=== PATIENT | male | born 1955 | race Caucasian/White ===

== ENCOUNTER 2016-08-16 14:19 | Inpatient (IN) ==
[2016-08-16] MEDS ORDERED: Furosemide 40 MG/4 ML VIAL IVP ONE (15:01)
--- NOTE | 2016-08-16 15:05 | Emergency Department Note ---
Disposition Clinical Impression: Swelling of both lower extremities Acute exacerbation of CHF (congestive heart failure) Qualifiers: Congestive heart failure type: unspecified congestive heart failure type Qualified Code(s): I50.9 - Heart failure, unspecified Dyspnea Qualifiers: Dyspnea type: dyspnea on exertion Qualified Code(s): R06.09 - Other forms of dyspnea Disposition: Admitted As Inpatient Condition: Fair Time of Disposition: 17:44 General Adult HPI - General Chief complaint: ED Shortness of Breath/Dyspnea Stated complaint: Swollen Legs Time Seen by Provider: 08/16/16 14:30 Source: patient, family Limitations: no limitations Nursing Notes Reviewed: Yes Vital Signs Reviewed: Yes - History of Present Illness HPI Narrative: Mr. Berkowitz, 61-year-old male, presentwer extremity swelling. Gradually worse over the past month however prominently worse over the last 1 week. His [place] point that he is no longer able to wear his typical shoes/boots. Associated with mild exertional dyspnea. Patient was at his primary care physician 3 days ago and was encouraged to present to this emergency facility and he refused. His symptoms continue to worsen thus his presentation today. She also notes mild left parasternal intermittent chest pain. Denies nausea, vomiting, diaphoresis, weakness, back pains, fever, chills, cough. PMH: Hypertension Habits: Current every day smoker; down to 1 pack per day. Current everyday drinker-750 mL to 1 L of whiskey per day. ROS: Positive: Bilateral lower extremity edema, exertional dyspnea, left-sided parasternal chest pain. Negative: Fever, chills, cough, nausea, vomiting, diaphoresis, weakness, dizziness, lightheadedness, abdominal pain, changes in bowel or bladder. Pain Scale: 0 - Related Data Home Medications Medication Instructions Recorded Confirmed Albuterol Sulfate [Proair 2 puff IH Q4H PRN 08/16/16 08/16/16 Respiclick] Buprenorphine HCl/Naloxone HCl 1.25 tab SL DAILY 08/16/16 08/16/16 [Buprenorphin-Naloxon 8-2 mg Sl] Bupropion HCl [Wellbutrin Xl] 300 mg PO QAM 08/16/16 08/16/16 Lisinopril [Zestril] 10 mg PO DAILY 08/16/16 08/16/16 Loratadine [Allergy Relief] 10 mg PO DAILY 08/16/16 08/16/16 Allergies Allergy/AdvReac Type Severity Reaction Status Date / Time Penicillins Allergy Blister Verified 08/16/16 14:21 All systems ED: reviewed and negative except as stated. Past Medical History - Past Medical History Medical history: Reports: hypertension Psychiatric history: Reports: no psych history - Social History Smoking Status: Current every day smoker Smokeless Tobacco Status: No Alcohol use: Reports: heavy Drug use: Reports: none Physical Exam Vital Signs Reviewed General: Patient is alert, oriented, and in no acute distress. HEENT: No facial asymmetry. Head is normocephalic and atraumatic. PERRLA. Trachea midline. Cardiovascular: Heart regular rate and rhythm without clicks, rubs, gallops, or murmurs. No JVD. PMI nondisplaced. Bilateral radial pulses 2/4. Bilateral pedal edema 2+ from the level of the knee to the mid foot. Respiratory: Symmetric chest rise with respiratory effort. Prolonged expiratory phase. Bilateral breath sounds have bibasilar wheezing with right basilar coarse lung sounds. Abdomen: [place] obese. Bowel sounds present normoactive x-4 quadrants. Abdomen is soft, nondistended, and nontender. All to assess organomegaly given patient's body habitus. Psych: Patient's affect is appropriate for situation. - General Limitations: no limitations General appearance: alert Course Course Narrative: Clinically suspect acute exacerbation of congestive heart failure. Interstitial remission after workup is complete. I spoke with patient and at bedside; they agree to admission if necessary. 40 mg IV Lasix in the ER. Patient's lab work is relatively unremarkable; specifically negative troponin, unremarkable BNP, normal lateral electrolytes . Chest x-ray unremarkable per radiology reading. EKG unremarkable per my reading. Patient remains overall comfortable however he is mildly hypoxic on room air with saturations 91%. Discussed with the admitting hospitalist, Dr. Godinez, who agrees to accept the patient. Vital Signs Temperature 99.6 F 08/16/16 14:21 Pulse Rate 109 08/16/16 14:21 Respiratory Rate 24 08/16/16 14:21 Blood Pressure 127/70 08/16/16 14:21 O2 Sat by Pulse Oximetry 92 08/16/16 14:21 Temperature 100.3 F H 08/16/16 17:22 Pulse Rate 105 08/16/16 17:22 Respiratory Rate 16 08/16/16 17:22 Blood Pressure 128/65 08/16/16 17:22 O2 Sat by Pulse Oximetry 98 08/16/16 17:22 Oxygen Delivery Oxygen Delivery Nasal Cannula Medical Decision Making - Medical Records Medical records reviewed: Yes I reviewed the patient's medical records. - Lab Data Lab results reviewed: Yes I reviewed the patient's lab results. Result diagrams: 08/16/16 15:18 08/16/16 15:18 Lab Results 08/16/16 08/16/16 08/16/16 Range/Units 15:18 15:18 15:18 WBC 5.3 (4.3-11.1) K/mcL RBC 3.81 L (4.19-5.50) M/mcL Hgb 13.8 (12.9-16.9) g/dL Hct 40.5 (37.5-50.1) % MCV 106.3 H (83.0-100.0) fL MCH 36.2 H (28.0-33.3) pg MCHC 34.1 (31.6-35.5) g/dL RDW 13.0 (11.5-14.5) % Plt Count 264 (140-400) K/mcL MPV 8.7 L (9.4-12.4) fL Immature Gran % 0.8 (0-4) % Seg Neutrophils % 49.1 % Lymphocytes % 39.9 % Monocytes % 8.1 % Eosinophils % 1.7 % Basophils % 0.4 % Neutrophils # 2.6 (1.6-8.9) K/mcL Lymphocytes # 2.1 (0.6-4.6) K/mcL Monocytes # 0.4 (0.0-1.3) K/mcL Eosinophils # 0.1 (0.0-0.6) K/mcL Basophils # 0.0 (0.0-0.2) K/mcL Sodium 137 (136-145) mEq/L Potassium 3.7 (3.5-4.5) mEq/L Chloride 99 (98-109) mEq/L Carbon Dioxide 25 (19-29) mEq/L BUN 4 L (8-26) mg/dL Creatinine 0.92 (0.72-1.25) mg/dL Est GFR ( Amer) > 60 (> 60) Est GFR (Non-Af Amer) > 60 (> 60) BUN/Creatinine Ratio 4 L (6-26) Glucose 135 H (70-99) mg/dL Calculated Osmolality 283 (280-300) Calcium 8.5 L (8.6-10.8) mg/dL Troponin I 0.00 (0-0.03) ng/mL B-Natriuretic Peptide (0-100) pg/mL Ethyl Alcohol (0-10) mg/dL 08/16/16 08/16/16 Range/Units 15:18 17:14 WBC (4.3-11.1) K/mcL RBC (4.19-5.50) M/mcL Hgb (12.9-16.9) g/dL Hct (37.5-50.1) % MCV (83.0-100.0) fL MCH (28.0-33.3) pg MCHC (31.6-35.5) g/dL RDW (11.5-14.5) % Plt Count (140-400) K/mcL MPV (9.4-12.4) fL Immature Gran % (0-4) % Seg Neutrophils % % Lymphocytes % % Monocytes % % Eosinophils % % Basophils % % Neutrophils # (1.6-8.9) K/mcL Lymphocytes # (0.6-4.6) K/mcL Monocytes # (0.0-1.3) K/mcL Eosinophils # (0.0-0.6) K/mcL Basophils # (0.0-0.2) K/mcL Sodium (136-145) mEq/L Potassium (3.5-4.5) mEq/L Chloride (98-109) mEq/L Carbon Dioxide (19-29) mEq/L BUN (8-26) mg/dL Creatinine (0.72-1.25) mg/dL Est GFR ( Amer) (> 60) Est GFR (Non-Af Amer) (> 60) BUN/Creatinine Ratio (6-26) Glucose (70-99) mg/dL Calculated Osmolality (280-300) Calcium (8.6-10.8) mg/dL Troponin I (0-0.03) ng/mL B-Natriuretic Peptide 20 (0-100) pg/mL Ethyl Alcohol 80 H (0-10) mg/dL - Radiology Data Radiology results reviewed: Yes I reviewed the patient's radiology results. Chest X-Ray 08/16/16 15:01 IMPRESSION: No acute cardiopulmonary process. D/ / 08/16/2016 15:17:11 Huang Esposito MD / samy Interpreting Provider: Huang Esposito MD - EKG Data EKG #1 EKG attestation: Yes I reviewed and interpreted this EKG. EKG results narrative: EKG dated 08/16/16 at 14:43 interpreted as sinus tachycardia with a rate of 102. [place] 183, QRS 120, QT/QTC 349/40. [place]. T-wave inversion in V1 which is present on the EKG. Compared to previous dated 07/15/2016 shows no acute ischemic changes of comparison. Attestation Statement - Attestation Attestation: I examined this patient and my medical decision-making was reviewed with the [employer]/PA/Advanced Practice Nurse/Resident Physician. I agree with the documented findings, disposition and treatment plan as described except to the extent set forth below. Patient to ED complaining of leg swelling. Swelling is only of his lower legs in his lower abdomen. States he is getting short of breath 2. Saw his primary doctor Tuesday who recommended to come be admitted. On examination he is in no distress. Diminished breath sounds posteriorly. 3-4+ pitting edema bilateral lower extremities. Plan. Cardiac workup. His BNP is 20. He will be admitted for further cardiac workup and diuresis.
[2016-08-16] MEDS ORDERED: *HR* LORazepam 2 MG/ML VIAL IVP ONE (15:07)
[2016-08-16 15:30] LABS: Basophils % 0.4 %; Eosinophils # 0.1 K/mcL (0.0-0.6); Eosinophils % 1.7 %; Hematocrit 40.5 % (37.5-50.1); Hemoglobin 13.8 g/dL (12.9-16.9); Immature Granulocytes % 0.8 % (0-4); Lymphocytes # 2.1 K/mcL (0.6-4.6); Lymphocytes % 39.9 %; Mean Corpuscular HGB Conc 34.1 g/dL (31.6-35.5); Mean Corpuscular Hemoglobin 36.2 pg (28.0-33.3); Mean Corpuscular Volume 106.3 fL (83.0-100.0); Mean Platelet Volume 8.7 fL (9.4-12.4); Monocytes # 0.4 K/mcL (0.0-1.3); Monocytes % 8.1 %; Neutrophils # 2.6 K/mcL (1.6-8.9); Platelet Count 264 K/mcL (140-400); Red Blood Count 3.81 M/mcL (4.19-5.50); Segmented Neutrophils % 49.1 %
[2016-08-16 15:43] LABS: BUN/Creatinine Ratio 4 (6-26); Calcium 8.5 mg/dL (8.6-10.8); Carbon Dioxide 25 mEq/L (19-29); Chloride 99 mEq/L (98-109); Glucose 135 mg/dL (70-99); Osmolality,Calculated 283 (280-300); Potassium 3.7 mEq/L (3.5-4.5); Sodium 137 mEq/L (136-145); eGFR For African Americans > 60 (> 60); eGFR For Non-African Americans > 60 (> 60)
[2016-08-16 15:45] LABS: Blood Urea Nitrogen 4 mg/dL (8-26)
[2016-08-16] MEDS ORDERED: *HR* LORazepam 2 MG/ML VIAL IVP PRN ×2 (17:05)
--- NOTE | 2016-08-16 17:12 | Event Note ---
Date of Encounter: 08/16/16 Time of Encounter: 17:08 1) acute cellulitis in both lower extremities (took oral antibiotics days ago) Start IV doxycycline Blood cultures 2. Severe lower extremity swelling/edema/lymphedema that could be acute on chronic, possibly related to diastolic CHF exacerbation The patient is morbidly obese for which his BNP is not useful, he has been using 3 pillows to sleep and cannot lay flat, chest x-ray shows some vascular congestion although they found a report does not mention it Start Lasix IV, strict I's and O's and daily weight, repeat echocardiogram 3. Severe alcohol abuse Order an alcohol level Taper Librium, add Ativan as needed per CIWA scale 4. Tobacco use, nicotine patch, smoking cessation counseling 5. Morbid obesity Omeprazole for GI prophylaxis and subcutaneous heparin for DVT prophylaxis. The patient will be admitted as inpatient, expected to stay more than 2 midnights. Full code. Time spent on this admission 40 minutes. High risk due to comorbidities
[2016-08-16] MEDS ORDERED: Naloxone 0.4 MG/ML INJ IVP PRN (17:15)
[2016-08-16] MEDS ORDERED: Albuterol 2.5 MG/3 ML NEBULIZER IH PRN (17:40)
--- NOTE | 2016-08-16 17:44 | Internal Med History&Physical ---
<Becca Koroma - Last Filed: 08/16/16 18:44> Date of Encounter: 08/16/16 Time of Encounter: 17:44 Assessment and Plan (1) Acute on chronic diastolic (congestive) heart failure Current visit: Yes Status: Acute Patient with increasing LE swelling, dyspnea on exertion. He reports one month ago, his "lungs filled up with fluid" and his legs were swollen and he was given lasix and improved. Last echocardiogram 10/22/14 showed mild LV diastolic dysfunction, LVEF 55%. continuous bobbin coil winder 40mg lasix IVP given in ED 40mg Lasix BID 20mg potassium PO BID daily weights strict I/Os echocardiogram in the morning. (2) Cellulitis Current visit: Yes Status: Acute Patient complains of increased swelling in BLE. On exam, BLE have +3 edema, are erythematous and mildly tender to palpation. Palpable pulses in bilateral feet. Patient is mildly tachycardic with HR 105, and temperature trending up with most recent 100.3. Doxycycline IVPB BID. If not improved by tomorrow, consider vancomycin. Qualifiers: Site of cellulitis: extremity Site of cellulitis of extremity: lower extremity Laterality: unspecified laterality Qualified Code(s): L03.119 - Cellulitis of unspecified part of limb (3) Alcohol abuse Current visit: Yes Status: Acute Patient drinks 1L of whiskey per day. CIWA protocol Librium QID plus PRN Ativan per CIWA protocol. (4) Smoker Current visit: Yes Status: Acute Patient reports he has cut back from 2PPD to 1PPD. Encourage smoking cessation. Smoking cessation education and nicotine patch ordered. (5) Chest pain Current visit: Yes Status: Acute Patient reporting mild intermittent chest pain. EKG with no ischemic changes. troponin negative at 0.00. Continuous bobbin coil winder serial troponins. Qualifiers: Chest pain type: unspecified Qualified Code(s): R07.9 - Chest pain, unspecified (6) DVT prophylaxis Current visit: Yes Status: Acute SCDs lovenox 40mg SQ daily Internal Medicine - H&P: HPI Chief complaint: leg swelling Admitted From: Emergency Dept Plans for Post Hospital Care: Home History of present illness: Mr. Berkowitz is a 61 year old male with hypertension, dependent, who presented to the emergency room today with complaints of chest pain, worsening swelling of the legs, shortness of breath on exertion. Patient reports that 1 month ago his legs were swollen and he had trouble breathing and he presented to the emergency room at that time and stated that medication and gave her made everything better, at that time he was advised to be admitted but he decided to go home. Since then his legs have been progressively swelling, and progressively worsening over the last 1 week. He reports intermittent chest pain. Evaluation in the emergency department included a troponin which was - 0.00, BNP was normal at 20, in a patient with morbid obesity. White blood cell count was normal at 5.3. Patient was mildly tachycardic with heart rate of 105. Chest x-ray showed some vascular congestion. On exam, patient morbidly obese, bilateral lower extremities erythematous, mildly tender to palpation, and with +3 pitting edema. Heart with regular rhythm, mildly tachycardic. Lungs with mild expiratory wheeze bilaterally. Past Med Surg Social Fam HX - Past Medical History Medical history: hypertension Psychiatric history: no psych history - Social History Smoking Status: Current every day smoker Smokeless Tobacco Status: No Alcohol use: heavy Drug use: none - Family History Mother Living Status: Age at : 67 Cause of : Colon CA Hx Family Cancer: Yes Father Living Status: Age at : 76 Cause of : CHF Hx Family Cardiac Disorders: Yes Internal Medicine - H&P: Meds Albuterol Sulfate [Proair Respiclick] 2 puff IH Q4H PRN 08/16/16 [History] Buprenorphine HCl/Naloxone HCl [Buprenorphin-Naloxon 8-2 mg Sl] 1.25 tab SL DAILY 08/16/16 [History] Bupropion HCl [Wellbutrin Xl] 300 mg PO QAM 08/16/16 [History] Lisinopril [Zestril] 10 mg PO DAILY 08/16/16 [History] Loratadine [Allergy Relief] 10 mg PO DAILY 08/16/16 [History] Allergies Penicillins Allergy (Verified 08/16/16 14:21) Blister All Systems PM: A 10-system review of systems was performed and is negative for pertinent findings except as documented above in the HPI. - Constitutional Constitutional: no chills, no fever(s), no night sweats - EENT Eyes: no change in vision, no discharge, no pain, no photophobia Ears: no ear discharge, no ear pain, no tinnitus Nose, mouth and throat: no dysphagia, no nasal discharge, no neck pain, no sore throat - Cardiovascular Cardiovascular ROS IM: chest pain (mild, intermittent), dyspnea on exertion, edema, no diaphoresis, no dyspnea, no lightheadedness, no palpitations, no syncope - Respiratory Respiratory: no cough, no dyspnea, no wheezing, no excessive phlegm production - Gastrointestinal Gastrointestinal: no abdominal pain, no diarrhea, no hematemesis, no hematochezia, no melena, no nausea, no vomiting - Musculoskeletal Musculoskeletal ROS IM: no numbness, no tingling - Integumentary Integumentary IM: erythema (BLE, face), no rash, no unusual bruising - Neurological Neurological ROS: no confusion, no convulsions, no focal weakness, no numbness, no tingling, no tremor(s) - Hematologic/Lymphatic Hematologic/Lymphatic: no easy bruising - Constitutional Vitals: Temp Pulse Resp BP Pulse Ox 100.3 F H 105 16 128/65 98 08/16/16 17:22 08/16/16 17:22 08/16/16 17:22 08/16/16 17:22 08/16/16 17:22 General appearance: Present: A&O X 3, morbidly obese, no acute distress - Head Head exam: Present: atraumatic, normocephalic - Eye Eye exam: Present: PERRL, conjuntiva pink, sclera anicteric Pupils: Present: PERRL - Neck Neck exam general surgery: Present: supple, trachea midline. Absent: lymphadenopathy - Respiratory Respiratory exam: Present: wheezes (mild expiratory). Absent: accessory muscle use, rales, rhonchi - Cardiovascular Cardiovascular exam: Present: RRR, +S1, +S2, tachycardia. Absent: diastolic murmur, gallop, rubs, systolic murmur - GI/Abdominal GI/Abdominal exam: Present: normal bowel sounds, soft, no peritoneal signs. Absent: distended, tenderness - Extremities Exam Extremities exam: Present: pedal edema (BLE), tenderness (BLE), warm, radial pulses palpable and symetrical. Absent: calf tenderness, cyanotic - Neurological Exam Neurological exam: Present: CN II-XII intact, oriented X3, no focal deficits. Absent: facial droop, speech deficit - Skin Skin exam: Present: dry, erythema (BLE and face), intact Internal Med - H&P Results - Labs CBC & Chem 7: 08/16/16 15:18 08/16/16 15:18 Labs: All Lab Results (24 Hours) 08/16/16 08/16/16 08/16/16 Range/Units 15:18 15:18 15:18 WBC 5.3 (4.3-11.1) K/mcL RBC 3.81 L (4.19-5.50) M/mcL Hgb 13.8 (12.9-16.9) g/dL Hct 40.5 (37.5-50.1) % MCV 106.3 H (83.0-100.0) fL MCH 36.2 H (28.0-33.3) pg MCHC 34.1 (31.6-35.5) g/dL RDW 13.0 (11.5-14.5) % Plt Count 264 (140-400) K/mcL MPV 8.7 L (9.4-12.4) fL Immature Gran % 0.8 (0-4) % Seg Neutrophils % 49.1 % Lymphocytes % 39.9 % Monocytes % 8.1 % Eosinophils % 1.7 % Basophils % 0.4 % Neutrophils # 2.6 (1.6-8.9) K/mcL Lymphocytes # 2.1 (0.6-4.6) K/mcL Monocytes # 0.4 (0.0-1.3) K/mcL Eosinophils # 0.1 (0.0-0.6) K/mcL Basophils # 0.0 (0.0-0.2) K/mcL Sodium 137 (136-145) mEq/L Potassium 3.7 (3.5-4.5) mEq/L Chloride 99 (98-109) mEq/L Carbon Dioxide 25 (19-29) mEq/L BUN 4 L (8-26) mg/dL Creatinine 0.92 (0.72-1.25) mg/dL Est GFR ( Amer) > 60 (> 60) Est GFR (Non-Af Amer) > 60 (> 60) BUN/Creatinine Ratio 4 L (6-26) Glucose 135 H (70-99) mg/dL Calculated Osmolality 283 (280-300) Calcium 8.5 L (8.6-10.8) mg/dL Troponin I 0.00 (0-0.03) ng/mL B-Natriuretic Peptide (0-100) pg/mL Ethyl Alcohol (0-10) mg/dL 08/16/16 08/16/16 Range/Units 15:18 17:14 WBC (4.3-11.1) K/mcL RBC (4.19-5.50) M/mcL Hgb (12.9-16.9) g/dL Hct (37.5-50.1) % MCV (83.0-100.0) fL MCH (28.0-33.3) pg MCHC (31.6-35.5) g/dL RDW (11.5-14.5) % Plt Count (140-400) K/mcL MPV (9.4-12.4) fL Immature Gran % (0-4) % Seg Neutrophils % % Lymphocytes % % Monocytes % % Eosinophils % % Basophils % % Neutrophils # (1.6-8.9) K/mcL Lymphocytes # (0.6-4.6) K/mcL Monocytes # (0.0-1.3) K/mcL Eosinophils # (0.0-0.6) K/mcL Basophils # (0.0-0.2) K/mcL Sodium (136-145) mEq/L Potassium (3.5-4.5) mEq/L Chloride (98-109) mEq/L Carbon Dioxide (19-29) mEq/L BUN (8-26) mg/dL Creatinine (0.72-1.25) mg/dL Est GFR ( Amer) (> 60) Est GFR (Non-Af Amer) (> 60) BUN/Creatinine Ratio (6-26) Glucose (70-99) mg/dL Calculated Osmolality (280-300) Calcium (8.6-10.8) mg/dL Troponin I (0-0.03) ng/mL B-Natriuretic Peptide 20 (0-100) pg/mL Ethyl Alcohol 80 H (0-10) mg/dL - Diagnostic Studies Chest x-ray Additional comments: Chest X-Ray 08/16/16 15:01 IMPRESSION: No acute cardiopulmonary process. D/ / 08/16/2016 15:17:11 Huang Esposito MD / samy Interpreting Provider: Huang Esposito MD <Johann Bedoya H - Last Filed: 08/16/16 18:55> Date of Encounter: 08/16/16 Internal Medicine - H&P: HPI History of present illness: Mr. Berkowitz is a 61 year old male Past Med Surg Social Fam HX - Family History Mother Living Status: Age at : 67 Cause of : Colon CA Hx Family Cancer: Yes Father Hx Family Cardiac Disorders: Yes Brother Hx Family Cardiac Disorders: Yes All Systems PM: A 10-system review of systems was performed and is negative for pertinent findings except as documented above in the HPI. - Constitutional Vitals: Temp Pulse Resp BP Pulse Ox 98.9 F 105 16 128/65 98 08/16/16 18:21 08/16/16 17:22 08/16/16 17:22 08/16/16 17:22 08/16/16 17:22 Internal Med - H&P Results - Labs CBC & Chem 7: 08/16/16 15:18 08/16/16 15:18 - Attending Attestation 1) acute cellulitis in both lower extremities (took oral antibiotics days ago) Start IV doxycycline Blood cultures 2. Severe lower extremity swelling/edema/lymphedema that could be acute on chronic, possibly related to diastolic CHF exacerbation The patient is morbidly obese for which his BNP is not useful, he has been using 3 pillows to sleep and cannot lay flat, chest x-ray shows some vascular congestion although they found a report does not mention it Start Lasix IV, strict I's and O's and daily weight, repeat echocardiogram 3. Severe alcohol abuse Order an alcohol level Taper Librium, add Ativan as needed per CIWA scale 4. Tobacco use, nicotine patch, smoking cessation counseling 5. Morbid obesity Omeprazole for GI prophylaxis and subcutaneous heparin for DVT prophylaxis. The patient will be admitted as inpatient, expected to stay more than 2 midnights. Full code. Time spent on this admission 40 minutes. High risk due to comorbidities I examined this patient and my medical decision-making was reviewed with the [employer]/PA/Advanced Practice Nurse/Resident Physician. I agree with the documented findings, disposition and treatment plan as described except to the extent set forth below.
[2016-08-16] MEDS: Ipratropium/Albuterol Neb 3 ML IH SCH ×2 (18:28→23:24)
[2016-08-16] MEDS: Nicotine 21 MG PATCH.TD24 TD SCH (18:29)
[2016-08-16] MEDS: Folic Acid 1 MG TABLET PO SCH (18:30)
[2016-08-16] MEDS: Thiamine (B-1) 100 MG TABLET PO SCH (18:30)
[2016-08-16] MEDS: Vitamin B Complex/Vit C/Vit E 1 EACH TABLET PO SCH (18:30)
[2016-08-16] MEDS: Doxycycline 200 MG in 0.9 % Sodium Chloride 250 ML IVPB SCH ×2 (18:39→18:41)
[2016-08-16] MEDS ORDERED: Furosemide 40 MG in 0.9 % Sodium Chloride 50 ML IVPB SCH (21:00)
[2016-08-16] MEDS: Furosemide 40 MG/4 ML VIAL IVP SCH (21:41)
[2016-08-17 03:48] LABS: Basophils % 0.5 %; Eosinophils # 0.1 K/mcL (0.0-0.6); Hematocrit 38.6 % (37.5-50.1); Hemoglobin 13.1 g/dL (12.9-16.9); Lymphocytes # 1.7 K/mcL (0.6-4.6); Mean Corpuscular HGB Conc 33.9 g/dL (31.6-35.5); Mean Corpuscular Hemoglobin 36.1 pg (28.0-33.3); Mean Corpuscular Volume 106.3 fL (83.0-100.0); Mean Platelet Volume 9.1 fL (9.4-12.4); Monocytes # 0.6 K/mcL (0.0-1.3); Monocytes % 9.9 %; Neutrophils # 3.5 K/mcL (1.6-8.9); Platelet Count 222 K/mcL (140-400); Red Blood Count 3.63 M/mcL (4.19-5.50); Red Cell Distribution Width 13.1 % (11.5-14.5); Segmented Neutrophils % 59.6 %
[2016-08-17 03:59] LABS: BUN/Creatinine Ratio 8 (6-26); Blood Urea Nitrogen 7 mg/dL (8-26); Calcium 8.4 mg/dL (8.6-10.8); Carbon Dioxide 29 mEq/L (19-29); Chloride 96 mEq/L (98-109); Glucose 118 mg/dL (70-99); Osmolality,Calculated 277 (280-300); Potassium 3.9 mEq/L (3.5-4.5); Sodium 134 mEq/L (136-145); eGFR For African Americans > 60 (> 60); eGFR For Non-African Americans > 60 (> 60)
[2016-08-17] MEDS: Ipratropium/Albuterol Neb 3 ML IH SCH ×4 (04:21→22:47)
[2016-08-17] MEDS: Doxycycline 200 MG in 0.9 % Sodium Chloride 250 ML IVPB SCH ×2 (06:32→18:27)
[2016-08-17] MEDS: *HR* Enoxaparin 40 MG/0.4 ML SYRINGE SQ SCH (06:33)
[2016-08-17] MEDS: Thiamine (B-1) 100 MG TABLET PO SCH (08:22)
[2016-08-17] MEDS: Vitamin B Complex/Vit C/Vit E 1 EACH TABLET PO SCH (08:22)
[2016-08-17] MEDS: Nicotine 21 MG PATCH.TD24 TD SCH (08:22)
[2016-08-17] MEDS: Folic Acid 1 MG TABLET PO SCH (08:22)
[2016-08-17] MEDS: BuPROPion XL (24 HR) 150 MG TABLET PO SCH (08:22)
[2016-08-17] MEDS: Furosemide 40 MG/4 ML VIAL IVP SCH (08:23)
[2016-08-17] MEDS ORDERED: Perflutren Lipid Microsphere 1.3 ML in 0.9 % Sodium Chloride 8.7 ML IVP ONE (12:52)
--- NOTE | 2016-08-17 15:09 | Internal Med Progress Note ---
Date of Encounter: 08/17/16 Time of Encounter: 14:30 - Assessment and plan (1) Acute on chronic diastolic (congestive) heart failure Current Visit: Yes Status: Acute Assessment and plan: Acute exacerbation of diastolic heart failure suspected. Echocardiogram is pending. He had an echocardiogram in 2014 that revealed an ejection fraction of 55% with mild left ventricular diastolic dysfunction. He was on any diuretics at home. Continue to diuresis with strict intake and output. Of note , patient was noted to have 5 bottles of liquid on his table, he is not aware that he is on a fluid restricted diet, 1.5 L fluid restricted diet explained this time. Patient continues with 4+ pitting edema bilaterally however his legs are not as taut and hard as when he got admitted. He also has ascites. He does endorse orthopnea and states he has been sleeping sitting upright for quite some time. We will continue to diurese. Renal function has remained stable, we will continue to trend. Awaiting echocardiogram results this patient will need at least another day or 2 of diuresis. ITS Impressions Chest X-Ray 08/16/16 15:01 IMPRESSION: No acute cardiopulmonary process. D/ / 08/16/2016 15:17:11 Huang Esposito MD / samy Interpreting Provider: Huang Esposito MD (2) Chest pain Current Visit: Yes Status: Resolved Assessment and plan: Patient currently denies chest pain or shortness of breath above his norm. He continues to endorse dyspnea on exertion and orthopnea. Chest x-ray negative. Troponin negative 3. Low suspicion for ACS. Clinical picture more consistent with heart failure exacerbation. Qualifiers: Chest pain type: unspecified Qualified Code(s): R07.9 - Chest pain, unspecified (3) Cellulitis Current Visit: Yes Status: Acute Assessment and plan: On examination, legs do not appear to be cellulitic at this time but will continue doxycycline and diuresing and monitor. No leukocytosis. Patient has been borderline febrile with a maximum temperature of 100.3 F. We will continue antibiotics. No signs or symptoms of sepsis, will trend. Qualifiers: Site of cellulitis: extremity Site of cellulitis of extremity: lower extremity Laterality: unspecified laterality Qualified Code(s): L03.119 - Cellulitis of unspecified part of limb (4) Alcohol abuse Current Visit: Yes Status: Chronic Assessment and plan: Patient stating he drinks a liter of whiskey per day as well as several cans of beer. He is tolerating Librium well and scoring low on CIWA. We will continue to trend. He is not interested in stopping drinking at this time. (5) Smoker Current Visit: Yes Status: Chronic Assessment and plan: Declines smoking cessation counseling. (6) DVT prophylaxis Current Visit: Yes Status: Acute Assessment and plan: Subcutaneous Lovenox (7) Morbid obesity with BMI of 45.0-49.9, adult Current Visit: Yes Status: Chronic (8) Polycythemia Current Visit: Yes Status: Chronic Assessment and plan: Chronic since at least 2 months ago, strong suspicion for JOHN; patient is also a smoker. Recommend outpatient sleep study. We will continue to diurese. - Subjective Interval history: Patient seen and examined. On examination, patient sitting upright in bed watching television. His is at the bedside. He states his swelling in his legs is slightly down. He states he is a little bit drowsy from the Librium but is otherwise feeling okay. - Constitutional Vitals: Temp Pulse Resp BP Pulse Ox 98.8 F 99 15 102/58 94 08/17/16 10:44 08/17/16 10:44 08/17/16 10:44 08/17/16 10:44 08/17/16 10:44 General appearance: Present: A&O X 3, morbidly obese, no acute distress, answers questions appropriately - Head Head exam: Present: atraumatic, normocephalic - Eye Eye exam: Present: PERRL, conjuntiva pink, sclera anicteric Pupils: Present: PERRL - Neck Neck exam general surgery: Present: supple, trachea midline. Absent: lymphadenopathy - Respiratory Respiratory exam: Present: CTAB. Absent: accessory muscle use, rales, respiratory distress, rhonchi, wheezes - Cardiovascular Cardiovascular exam: Present: RRR, +S1, +S2. Absent: diastolic murmur, gallop, rubs, systolic murmur - GI/Abdominal GI/Abdominal exam: Present: distended, normal bowel sounds, soft, no peritoneal signs. Absent: tenderness - Extremities Exam Extremities exam: Present: pedal edema (4+ bilaterally), warm, radial pulses palpable and symetrical. Absent: calf tenderness, cyanotic - Neurological Exam Neurological exam: Present: alert, CN II-XII intact, normal gait, oriented X3, no focal deficits, strengths equal and symetr throughout. Absent: pronater drift, facial droop, speech deficit - Skin Skin exam: Present: dry, intact, normal color, warm Internal Medicine: Result - Labs CBC & Chem 7: 08/17/16 03:28 08/17/16 03:28 Labs: Short CBC 08/17/16 Range/Units 03:28 WBC 5.9 (4.3-11.1) K/mcL Hgb 13.1 (12.9-16.9) g/dL Hct 38.6 (37.5-50.1) % Plt Count 222 (140-400) K/mcL Neutrophils # 3.5 (1.6-8.9) K/mcL BMP 08/17/16 03:28 Sodium 134 L Potassium 3.9 Chloride 96 L Carbon Dioxide 29 BUN 7 L Creatinine 0.92 Glucose 118 H Calcium 8.4 L Cardiac Enzymes 08/16/16 08/17/16 Range/Units 21:17 03:28 Troponin I 0.00 0.00 (0-0.03) ng/mL Consult Discharge Plan - Plan Referrals: Margarito Cordova MD [Primary Care Provider] -
[2016-08-17] MEDS ORDERED: Furosemide 40 MG/4 ML VIAL IVP SCH (18:00)
--- NOTE | 2016-08-17 18:15 | Electrocardiograph Report ---
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
[2016-08-17] MEDS: *HR* LORazepam 2 MG/ML VIAL IVP PRN (22:05)
[2016-08-18] MEDS: Ipratropium/Albuterol Neb 3 ML IH SCH ×4 (04:19→23:12)
[2016-08-18 05:45] LABS: Basophils % 0.4 %; Eosinophils # 0.1 K/mcL (0.0-0.6); Eosinophils % 1.7 %; Hematocrit 37.1 % (37.5-50.1); Hemoglobin 12.7 g/dL (12.9-16.9); Lymphocytes # 1.5 K/mcL (0.6-4.6); Lymphocytes % 30.8 %; Mean Corpuscular HGB Conc 34.2 g/dL (31.6-35.5); Mean Corpuscular Hemoglobin 36.6 pg (28.0-33.3); Mean Corpuscular Volume 106.9 fL (83.0-100.0); Mean Platelet Volume 8.7 fL (9.4-12.4); Monocytes # 0.5 K/mcL (0.0-1.3); Monocytes % 10.7 %; Neutrophils # 2.7 K/mcL (1.6-8.9); Platelet Count 211 K/mcL (140-400); Red Blood Count 3.47 M/mcL (4.19-5.50); Segmented Neutrophils % 55.4 %
[2016-08-18 06:01] LABS: BUN/Creatinine Ratio 10 (6-26); Blood Urea Nitrogen 9 mg/dL (8-26); Calcium 8.3 mg/dL (8.6-10.8); Carbon Dioxide 28 mEq/L (19-29); Chloride 99 mEq/L (98-109); Glucose 106 mg/dL (70-99); Osmolality,Calculated 279 (280-300); Potassium 3.9 mEq/L (3.5-4.5); Sodium 135 mEq/L (136-145); eGFR For African Americans > 60 (> 60); eGFR For Non-African Americans > 60 (> 60)
[2016-08-18] MEDS: Doxycycline 200 MG in 0.9 % Sodium Chloride 250 ML IVPB SCH ×2 (06:04→18:21)
[2016-08-18] MEDS: *HR* Enoxaparin 40 MG/0.4 ML SYRINGE SQ SCH (06:04)
[2016-08-18] MEDS: Thiamine (B-1) 100 MG TABLET PO SCH (09:45)
[2016-08-18] MEDS: Folic Acid 1 MG TABLET PO SCH (09:45)
[2016-08-18] MEDS: BuPROPion XL (24 HR) 150 MG TABLET PO SCH (09:45)
[2016-08-18] MEDS: Vitamin B Complex/Vit C/Vit E 1 EACH TABLET PO SCH (09:45)
[2016-08-18] MEDS: Nicotine 21 MG PATCH.TD24 TD SCH (09:46)
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
[2016-08-18] MEDS: Furosemide 40 MG/4 ML VIAL IVP SCH (18:20)
[2016-08-19] MEDS: *HR* LORazepam 2 MG/ML VIAL IVP PRN ×2 (00:28→20:59)
[2016-08-19] MEDS: Ipratropium/Albuterol Neb 3 ML IH SCH ×4 (04:37→22:36)
[2016-08-19 05:00] LABS: Basophils % 0.4 %; Eosinophils # 0.1 K/mcL (0.0-0.6); Eosinophils % 1.7 %; Hemoglobin 13.6 g/dL (12.9-16.9); Immature Granulocytes % 1.3 % (0-4); Lymphocytes # 1.4 K/mcL (0.6-4.6); Lymphocytes % 25.9 %; Mean Corpuscular Hemoglobin 36.4 pg (28.0-33.3); Mean Platelet Volume 8.9 fL (9.4-12.4); Monocytes # 0.5 K/mcL (0.0-1.3); Monocytes % 9.7 %; Neutrophils # 3.3 K/mcL (1.6-8.9); Platelet Count 238 K/mcL (140-400); Red Blood Count 3.74 M/mcL (4.19-5.50); Red Cell Distribution Width 13.2 % (11.5-14.5)
[2016-08-19 05:15] LABS: BUN/Creatinine Ratio 11 (6-26); Blood Urea Nitrogen 11 mg/dL (8-26); Calcium 8.7 mg/dL (8.6-10.8); Carbon Dioxide 29 mEq/L (19-29); Chloride 99 mEq/L (98-109); Glucose 102 mg/dL (70-99); Osmolality,Calculated 282 (280-300); Potassium 3.9 mEq/L (3.5-4.5); Sodium 136 mEq/L (136-145); eGFR For African Americans > 60 (> 60); eGFR For Non-African Americans > 60 (> 60)
[2016-08-19 05:39] LABS: Thyroid Stimulating Hormone 4.384 mcIU/mL (0.350-4.840)
[2016-08-19] MEDS: *HR* Enoxaparin 40 MG/0.4 ML SYRINGE SQ SCH (06:20)
[2016-08-19] MEDS: Doxycycline 200 MG in 0.9 % Sodium Chloride 250 ML IVPB SCH ×2 (06:20→18:15)
[2016-08-19] MEDS: Folic Acid 1 MG TABLET PO SCH (08:29)
[2016-08-19] MEDS: Thiamine (B-1) 100 MG TABLET PO SCH (08:29)
[2016-08-19] MEDS: Nicotine 21 MG PATCH.TD24 TD SCH (08:29)
[2016-08-19] MEDS: BuPROPion XL (24 HR) 150 MG TABLET PO SCH (08:29)
[2016-08-19] MEDS: Vitamin B Complex/Vit C/Vit E 1 EACH TABLET PO SCH (08:29)
[2016-08-19] MEDS: Furosemide 40 MG/4 ML VIAL IVP SCH ×2 (08:36→17:35)
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
[2016-08-19] MEDS ORDERED: Water for inj. (sterile) 0 ML IV ONE (20:49)
[2016-08-20] MEDS: Ipratropium/Albuterol Neb 3 ML IH SCH ×4 (04:43→23:23)
[2016-08-20] MEDS: *HR* Enoxaparin 40 MG/0.4 ML SYRINGE SQ SCH (06:19)
[2016-08-20] MEDS: Doxycycline 200 MG in 0.9 % Sodium Chloride 250 ML IVPB SCH (06:19)
[2016-08-20 07:05] LABS: BUN/Creatinine Ratio 11 (6-26); Blood Urea Nitrogen 11 mg/dL (8-26); Calcium 8.7 mg/dL (8.6-10.8); Carbon Dioxide 27 mEq/L (19-29); Chloride 99 mEq/L (98-109); Glucose 109 mg/dL (70-99); Osmolality,Calculated 282 (280-300); Sodium 136 mEq/L (136-145); eGFR For African Americans > 60 (> 60); eGFR For Non-African Americans > 60 (> 60)
[2016-08-20] MEDS: Nicotine 21 MG PATCH.TD24 TD SCH (08:47)
[2016-08-20] MEDS: BuPROPion XL (24 HR) 150 MG TABLET PO SCH (08:47)
[2016-08-20] MEDS: Folic Acid 1 MG TABLET PO SCH (08:47)
[2016-08-20] MEDS: Vitamin B Complex/Vit C/Vit E 1 EACH TABLET PO SCH (08:47)
[2016-08-20] MEDS: Furosemide 40 MG/4 ML VIAL IVP SCH ×2 (08:47→17:47)
[2016-08-20] MEDS: Thiamine (B-1) 100 MG TABLET PO SCH (08:47)
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
[2016-08-20] MEDS: Acetaminophen 325 MG TABLET PO PRN (20:06)
[2016-08-20] MEDS ORDERED: Doxycycline 100 MG CAPSULE PO SCH (21:00)
[2016-08-20] MEDS: *HR* LORazepam 2 MG/ML VIAL IVP PRN (21:13)
[2016-08-21] MEDS: Ipratropium/Albuterol Neb 3 ML IH SCH ×4 (04:03→22:58)
[2016-08-21 04:12] LABS: BUN/Creatinine Ratio 9 (6-26); Blood Urea Nitrogen 11 mg/dL (8-26); Calcium 8.7 mg/dL (8.6-10.8); Carbon Dioxide 27 mEq/L (19-29); Chloride 99 mEq/L (98-109); Glucose 120 mg/dL (70-99); Osmolality,Calculated 279 (280-300); Sodium 134 mEq/L (136-145); eGFR For African Americans > 60 (> 60); eGFR For Non-African Americans > 60 (> 60)
[2016-08-21] MEDS: Acetaminophen 325 MG TABLET PO PRN ×3 (04:29→19:41)
[2016-08-21 04:51] LABS: Eosinophils # 0.1 K/mcL (0.0-0.6); Hematocrit 38.7 % (37.5-50.1); Hemoglobin 13.3 g/dL (12.9-16.9); Mean Corpuscular HGB Conc 34.4 g/dL (31.6-35.5); Mean Corpuscular Hemoglobin 36.1 pg (28.0-33.3); Mean Corpuscular Volume 105.2 fL (83.0-100.0); Mean Platelet Volume 8.6 fL (9.4-12.4); Platelet Count 207 K/mcL (140-400); Red Blood Count 3.68 M/mcL (4.19-5.50); Red Cell Distribution Width 13.6 % (11.5-14.5)
[2016-08-21 04:56] LABS: Magnesium 1.5 mg/dL (1.6-2.6)
[2016-08-21 05:23] LABS: Lymphocytes # 0.8 K/mcL (0.6-4.6); Monocytes # 0.4 K/mcL (0.0-1.3); Neutrophils # 3.9 K/mcL (1.6-8.9)
[2016-08-21 05:24] LABS: Platelet Estimate Normal (Normal); Reactive Lymphocytes Present (Not Present)
[2016-08-21 05:25] LABS: Platelet Clumps Few (Not Present)
[2016-08-21] MEDS ORDERED: Magnesium Sulfate 2 GM in D5% in Water 100 ML IVPB ONE (05:41)
[2016-08-21] MEDS ORDERED: 0.9 % Sodium Chloride 500 ML IVC ONE (05:54)
--- NOTE | 2016-08-21 05:56 | Event Note ---
Date of Encounter: 08/21/16 Time of Encounter: 05:53 On-call Hospialist note: RN notified me that the pt is febril with temp of 100.8F, tachycardic with HR of 120. Pt is being treated for CHF exacerbation, cellulitis of the lower extremities ( on doxycycline 200 mg BID). Pt reports cough with greenish yellow sputum. Leg pain is improving and is able to feel the sensation O/E: Cardiac: Regular rate and rhythm. Lungs: Occasional wheeze in the right lung; occasional crackles in the bases. B/l LE swelling; local warmth and discoloration. Lactate is 0.9. WBC 5; Ma.5. Blood and urine cultures are requested. CRP requested CXR ordered and on my personal review - no consolidation noted A/P: Fever: Infectious versus drug induced. Pt's vitals meet sepsis criteria. lactate is normal. Normal saline bolus 500 ml. discontinue doxycycline and start vancomycin and cefepime. Follow cultures.
[2016-08-21] MEDS ORDERED: Vancomycin 2,000 MG in D5% in Water 250 ML IVPB SCH (06:00)
[2016-08-21] MEDS ORDERED: Levalbuterol Neb 1.25 MG/3 ML IH ONE (06:01)
[2016-08-21] MEDS: Vancomycin 2,000 MG in D5% in Water 500 ML IVPB SCH ×2 (06:14→18:03)
[2016-08-21] MEDS: *HR* Enoxaparin 40 MG/0.4 ML SYRINGE SQ SCH (06:37)
[2016-08-21 06:44] LABS: ABG HCO3 29.1 mEQ/L (21-27); ABG Oxygen Saturation 97 % (95-98); ABG PCO2 40 mmHg (35-45); ABG PH 7.47 pH Units (7.32-7.45); ABG PO2 85 mmHg (85-104); ABG TCO2 30.3 mEq/L (20-26)
[2016-08-21 06:46] LABS: Blood Gas FiO2 32 %; Blood Gas Liter Flow 3 L/MIN
[2016-08-21] MEDS: Vitamin B Complex/Vit C/Vit E 1 EACH TABLET PO SCH (08:36)
[2016-08-21] MEDS: Thiamine (B-1) 100 MG TABLET PO SCH (08:36)
[2016-08-21] MEDS: Folic Acid 1 MG TABLET PO SCH (08:36)
[2016-08-21] MEDS: BuPROPion XL (24 HR) 150 MG TABLET PO SCH (08:36)
[2016-08-21] MEDS: Lactobacillus 1 EACH CAP.SPRINK PO SCH ×2 (08:36→21:34)
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
[2016-08-21] MEDS: Nicotine 21 MG PATCH.TD24 TD SCH (08:39)
[2016-08-21] MEDS: Furosemide 40 MG/4 ML VIAL IVP SCH ×2 (08:39→17:56)
[2016-08-21 09:05] LABS: Albumin/Globulin Ratio 0.9 (1.1-2.2); Bilirubin,Direct 0.4 mg/dL (0.0-0.5); Bilirubin,Indirect 0.3 mg/dL (0.0-1.2); Bilirubin,Total 0.7 mg/dL (0.2-1.2); Globulin 3.2 g/dL (2.4-3.5); Total Protein 6.2 g/dL (6.0-8.3)
[2016-08-21 10:34] LABS: Hemoglobin A1C 5.4 %
[2016-08-21] MEDS: Cefepime HCl 1,000 MG in D5% in Water (Mini-Bag+) 100 ML IVPB SCH ×3 (10:46→23:42)
[2016-08-21] MEDS ORDERED: *HR* LORazepam 2 MG/ML VIAL IVP PRN (11:05)
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
--- NOTE | 2016-08-21 11:40 | Event Note ---
Date of Encounter: 08/21/16 Time of Encounter: 10:45 Patient seen and reexamined in concert with Dr August. Patient appears much more comfortable. When BiPAP is removed, patient's work of breathing has lessened greatly. Patient stating he still prefers BiPAP at this time mostly for comfort. Abdominal CT unremarkable. LFTs unremarkable. CRP elevated consistent with infectious/inflammatory etiology. Chest CT with possible early pneumonia, will continue cefepime and vancomycin. Concern also for early signs of alcohol withdrawal, will add Ativan to his regimen and give a dose now. We will also continue Librium. No indication to transfer to the ICU at this time. We will attempt to get a bed on 2 north for closer monitoring. We will continue to monitor closely. ITS Impressions Abdomen/Pelvis CT 08/21/16 08:33 IMPRESSION: 1. A few ground-glass density nodules in the right lung apex measuring up to 11 mm nonspecific. Infectious etiology is possible. Chest CT in 3-6 months is suggested. 2. No other acute abnormality in chest. Small amount of fluid in the posterior mediastinum with small hiatal hernia. 3. No acute abnormality in the or pelvis. 4. Superficial soft tissue edema in the left thigh. 5. Mildly enlarged inguinal pelvic lymph nodes are likely reactive. Chest CT 08/21/16 08:33 IMPRESSION: 1. A few ground-glass density nodules in the right lung apex measuring up to 11 mm nonspecific. Infectious etiology is possible. Chest CT in 3-6 months is suggested. 2. No other acute abnormality in chest. Small amount of fluid in the posterior mediastinum with small hiatal hernia. 3. No acute abnormality in the or pelvis. 4. Superficial soft tissue edema in the left thigh. 5. Mildly enlarged inguinal pelvic lymph nodes are likely reactive. RECOMMENDATIONS: Fleischner Society guidelines for follow-up and management of incidentally detected subsolid pulmonary nodules: Multiple subsolid nodules < [address] mm - [address] at 3-6 months. If stable, consider CT at 2 and 4 years. > than or equal to [address] at 3-6 months. Subsequent management based on the most suspicious nodule(s). - Low risk patients include individuals with minimal or absent history of smoking and other known risk factors. - High risk patients include individuals with a history or smoking or known risk factors. Radlogy 2017 http://pubs.rsna.org/doi/full/10.1148/radiol.9154062277 D/ / Vishnu Lemus MD / Vishnu Lemus MD Interpreting Provider: Vishnu Lemus MD
[2016-08-21] MEDS ORDERED: Aminoglycoside Consult 1 EACH MC ONE (12:00)
[2016-08-21] MEDS: *HR* LORazepam 2 MG/ML VIAL IVP PRN (12:30)
[2016-08-21 13:12] LABS: Bilirubin,Urine Negative (Negative); Blood,Urine Negative (Negative); Clarity,Urine Clear (Clear); Color,Urine Yellow (Yellow); Glucose,Urine (UA) Normal (Normal); Ketones,Urine Negative (Negative); Leukocyte Esterase,Urine Negative (Negative); Nitrite,Urine Negative (Negative); PH,Urine 6.5 pH Units (5.0-8.0); Protein,Urine Negative (Neg-Trace); Specific Gravity,Urine 1.023 (1.010-1.025); Urobilinogen,Urine Normal (Normal)
[2016-08-21] MEDS ORDERED: Ondansetron 4 MG/2 ML VIAL IVP PRN (14:14)
[2016-08-21 21:29] LABS: Folate 13.4 ng/mL (7.0-31.4)
[2016-08-21] MEDS: Budesonide/Formoterol 160/4.5 MDI IH SCH (22:57)
[2016-08-21] MEDS ORDERED: Water for inj. (sterile) 10 ML IV ONE (23:31)
[2016-08-22] MEDS ORDERED: Ibuprofen 400 MG TABLET PO PRN (01:49)
[2016-08-22] MEDS: Acetaminophen 325 MG TABLET PO PRN ×3 (03:00→18:50)
[2016-08-22] MEDS: Ipratropium/Albuterol Neb 3 ML IH SCH ×4 (03:56→21:38)
[2016-08-22] MEDS: *HR* Enoxaparin 40 MG/0.4 ML SYRINGE SQ SCH (05:55)
[2016-08-22] MEDS ORDERED: Vancomycin 1,500 MG in D5% in Water 250 ML IVPB SCH (06:00)
[2016-08-22 06:49] LABS: Calcium 8.1 mg/dL (8.6-10.8); Potassium 3.6 mEq/L (3.5-4.5)
[2016-08-22 07:04] LABS: Hematocrit 39.2 % (37.5-50.1); Hemoglobin 13.2 g/dL (12.9-16.9); Lymphocytes # 0.4 K/mcL (0.6-4.6); Mean Corpuscular HGB Conc 33.7 g/dL (31.6-35.5); Mean Corpuscular Hemoglobin 35.6 pg (28.0-33.3); Mean Corpuscular Volume 105.7 fL (83.0-100.0); Mean Platelet Volume 9.1 fL (9.4-12.4); Platelet Count 201 K/mcL (140-400); Red Blood Count 3.71 M/mcL (4.19-5.50); Red Cell Distribution Width 13.8 % (11.5-14.5)
[2016-08-22 08:13] LABS: Eosinophils # 0.1 K/mcL (0.0-0.6); Monocytes # 0.3 K/mcL (0.0-1.3); Neutrophils # 3.4 K/mcL (1.6-8.9); Platelet Estimate Normal (Normal)
[2016-08-22] MEDS: Cefepime HCl 1,000 MG in D5% in Water (Mini-Bag+) 100 ML IVPB SCH ×3 (09:07→23:15)
[2016-08-22] MEDS: Nicotine 21 MG PATCH.TD24 TD SCH (09:08)
[2016-08-22] MEDS: Thiamine (B-1) 100 MG TABLET PO SCH (09:08)
[2016-08-22] MEDS: Folic Acid 1 MG TABLET PO SCH (09:08)
[2016-08-22] MEDS: Lactobacillus 1 EACH CAP.SPRINK PO SCH ×2 (09:08→20:25)
[2016-08-22] MEDS: BuPROPion XL (24 HR) 150 MG TABLET PO SCH (09:08)
[2016-08-22] MEDS: Vitamin B Complex/Vit C/Vit E 1 EACH TABLET PO SCH (09:08)
--- NOTE | 2016-08-22 09:52 | Internal Med Progress Note ---
Date of Encounter: 08/22/16 Time of Encounter: 08:40 - Assessment and plan (1) Alcohol withdrawal Current Visit: Yes Status: Acute Assessment and plan: Continue librium, ativan prn SW for rehab when patient is stable for discharge Qualifiers: Complication of substance-induced condition: uncomplicated Qualified Code(s ): F10.230 - Alcohol dependence with withdrawal, uncomplicated (2) Cellulitis Current Visit: Yes Status: Acute Assessment and plan: Legs with evidence of chronic venous stasis, no definite cellulitis Will d/c Vancomycin, renal function is worsening and low suspicion for need for it at this time Qualifiers: Site of cellulitis: extremity Site of cellulitis of extremity: lower extremity Laterality: unspecified laterality Qualified Code(s): L03.119 - Cellulitis of unspecified part of limb (3) Acute on chronic diastolic (congestive) heart failure Current Visit: Yes Status: Acute Assessment and plan: Continue lasix IV, decreased dose Continue fluid restriction, daily weights, I/O monitoring Fluid balance is negative, weight loss is documented, respiratory status is improving, continue to monitor (4) Alcohol abuse Current Visit: Yes Status: Chronic Assessment and plan: Patient drinks a liter of whiskey per day as well as several cans of beer and some tequila. Continue Librium and CIWA protocol (5) Smoker Current Visit: Yes Status: Chronic Assessment and plan: Declines smoking cessation counseling. on NRT, continue (6) Morbid obesity with BMI of 45.0-49.9, adult Current Visit: Yes Status: Chronic (7) COPD (chronic obstructive pulmonary disease) Current Visit: Yes Status: Chronic Assessment and plan: -Continue duonebs, symbicort, cefepime -Pulm eval noted and appreciated -CT scan of chest was not impressive for pneumonia - BiPAP at night and as needed - Duonebs Q6H, symbicort Qualifiers: COPD type: unspecified COPD Qualified Code(s): J44.9 - Chronic obstructive pulmonary disease, unspecified (8) Sleep apnea Current Visit: Yes Status: Suspected Qualifiers: Sleep apnea type: unspecified type Qualified Code(s): G47.30 - Sleep apnea , unspecified - Subjective Interval history: 61 M with Alcohol abuse being managed for CHFE, Acute respo failure secondary to COPDE, Suspected pneumonia, Alcohol withdrawal Seen at bedside with spuse No new complains I/O -9L, Weight loss documented, ~10kg loss since admission. Renal function slightly worsened this a.m-D/C Vanco, decrease lasix Fever has resolved - Constitutional Vitals: Temp Pulse Resp BP Pulse Ox 98.2 F 82 28 106/68 91 08/22/16 08:10 08/22/16 08:10 08/22/16 08:10 08/22/16 08:10 08/22/16 08:45 General appearance: Present: disheveled, A&O X 3, morbidly obese, pleasant, severe distress (moderate), answers questions appropriately - Head Head exam: Present: atraumatic, normocephalic - Eye Eye exam: Present: PERRL, conjuntiva pink, sclera anicteric Pupils: Present: PERRL - Neck Neck exam general surgery: Present: supple, trachea midline. Absent: lymphadenopathy - Respiratory Respiratory exam: Present: CTAB. Absent: accessory muscle use, rales, rhonchi, wheezes - Cardiovascular Cardiovascular exam: Present: RRR, +S1, +S2. Absent: diastolic murmur, gallop, rubs, systolic murmur - GI/Abdominal GI/Abdominal exam: Present: normal bowel sounds, soft, no peritoneal signs. Absent: distended, tenderness - Extremities Exam Extremities exam: Present: pedal edema (3+, evidence of chronic venous stasis changes), warm, radial pulses palpable and symetrical. Absent: calf tenderness , cyanotic Additional comments: NO tremors - Neurological Exam Neurological exam: Present: alert, CN II-XII intact, oriented X3, no focal deficits. Absent: pronater drift, facial droop, speech deficit - Skin Skin exam: Present: dry, intact Internal Medicine: Result - Labs CBC & Chem 7: 08/22/16 06:11 08/22/16 06:11 Labs: Short CBC 08/22/16 Range/Units 06:11 WBC 4.3 (4.3-11.1) K/mcL Hgb 13.2 (12.9-16.9) g/dL Hct 39.2 (37.5-50.1) % Plt Count 201 (140-400) K/mcL Neutrophils # 3.4 (1.6-8.9) K/mcL BMP 08/22/16 06:11 Sodium 132 L Potassium 3.6 Chloride 96 L Carbon Dioxide 27 BUN 16 Creatinine 1.45 H Glucose 112 H Calcium 8.1 L Urine 08/21/16 Range/Units 12:52 Urine Color Yellow (Yellow) Urine Clarity Clear (Clear) Urine pH 6.5 (5.0-8.0) pH Units Ur Specific [place] 1.023 (1.010-1.025) Urine Protein Negative (Neg-Trace) mg/dL Urine Glucose (UA) Normal (Normal) mg/dL - ABG Interpretation ABG results: ABG ABG pH 7.47 pH Units (7.32-7.45) H 08/21/16 06:35 ABG pCO2 40 mmHg (35-45) 08/21/16 06:35 ABG pO2 85 mmHg (85-104) 08/21/16 06:35 ABG O2 Saturation 97 % (95-98) 08/21/16 06:35 - Impressions Impressions Chest X-Ray 08/21/16 04:15 IMPRESSION: No acute cardiopulmonary disease. D/ / 08/21/2016 09:35:50 Chneg Myles MD / [facility] Interpreting Provider: Cheng Myles MD Abdomen/Pelvis CT 08/21/16 08:33 IMPRESSION: 1. A few ground-glass density nodules in the right lung apex measuring up to 11 mm are nonspecific. Infectious etiology is possible. CT chest in 3-6 months is suggested. 2. No other acute abnormality in the chest. Small amount of fluid in the posterior mediastinum with small hiatal hernia. 3. No acute abnormality in the abdomen or pelvis. 4. Superficial soft tissue edema in the left thigh. 5. Mildly enlarged inguinal and pelvic lymph nodes are likely reactive. RECOMMENDATIONS: Fleischner Society guidelines for follow-up and management of incidentally detected subsolid pulmonary nodules: Multiple subsolid nodules < [address] - [address] at 3-6 months. If stable, consider CT at 2 and 4 years. > than or equal to [address] at 3-6 months. Subsequent management based on the most suspicious nodule(s). - Low risk patients include individuals with minimal or absent history of smoking and other known risk factors. - High risk patients include individuals with a history or smoking or known risk factors. Radiology 2017 http://pubs.rsna.org/doi/full/10.1148/radiol.1933989984 D/ / 08/21/2016 11:33:57 Vishnu Lemus MD / jose Interpreting Provider: Vishnu Lemus MD Chest CT 08/21/16 08:33 IMPRESSION: 1. A few ground-glass density nodules in the right lung apex measuring up to 11 mm are nonspecific. Infectious etiology is possible. CT chest in 3-6 months is suggested. 2. No other acute abnormality in the chest. Small amount of fluid in the posterior mediastinum with small hiatal hernia. 3. No acute abnormality in the abdomen or pelvis. 4. Superficial soft tissue edema in the left thigh. 5. Mildly enlarged inguinal and pelvic lymph nodes are likely reactive. RECOMMENDATIONS: Fleischner Society guidelines for follow-up and management of incidentally detected subsolid pulmonary nodules: Multiple subsolid nodules < [address] at 3-6 months. If stable, consider CT at 2 and 4 years. > than or equal to [address] at 3-6 months. Subsequent management based on the most suspicious nodule(s). - Low risk patients include individuals with minimal or absent history of smoking and other known risk factors. - High risk patients include individuals with a history or smoking or known risk factors. Radiology 2017 http://pubs.rsna.org/doi/full/10.1148/radiol.[email or web address] D/ / 08/21/2016 11:33:57 Vishnu Lemus MD / jose Interpreting Provider: Vishnu Lemus MD Consult Discharge Plan - Plan Referrals: Margarito Cordova MD [Primary Care Provider] -
[2016-08-22] MEDS: Budesonide/Formoterol 160/4.5 MDI IH SCH ×2 (11:20→21:38)
[2016-08-22] MEDS ORDERED: *HR* OxyCODONE/APAP 5/325 TABLET PO PRN (12:21)
[2016-08-22] MEDS: Dexmedetomidine HCl 400 MCG/100 ML MLS IVC SCH (15:52)
[2016-08-22] MEDS: Furosemide 40 MG/4 ML VIAL IVP SCH (16:10)
[2016-08-22] MEDS ORDERED: 0.9 % Sodium Chloride 500 ML ONE (20:19)
[2016-08-22] MEDS ORDERED: 0.9 % Sodium Chloride 500 ML IVC ONE (23:21)
[2016-08-23 04:35] LABS: Eosinophils # 0.2 K/mcL (0.0-0.6); Hematocrit 40.1 % (37.5-50.1); Hemoglobin 13.3 g/dL (12.9-16.9); Mean Corpuscular HGB Conc 33.2 g/dL (31.6-35.5); Mean Corpuscular Hemoglobin 35.8 pg (28.0-33.3); Mean Corpuscular Volume 107.8 fL (83.0-100.0); Mean Platelet Volume 9.4 fL (9.4-12.4); Nucleated Red Blood Cells 0.4 /100 WBC (0); Platelet Count 196 K/mcL (140-400); Red Blood Count 3.72 M/mcL (4.19-5.50)
[2016-08-23 05:00] LABS: Lymphocytes # 1.1 K/mcL (0.6-4.6); Monocytes # 0.2 K/mcL (0.0-1.3); Neutrophils # 3.2 K/mcL (1.6-8.9); Platelet Estimate Normal (Normal)
[2016-08-23 05:01] LABS: Reactive Lymphocytes Present (Not Present)
[2016-08-23] MEDS: Ipratropium/Albuterol Neb 3 ML IH SCH ×4 (05:01→22:08)
[2016-08-23 05:02] LABS: Large Platelets Present (Not Present)
[2016-08-23] MEDS: *HR* Enoxaparin 40 MG/0.4 ML SYRINGE SQ SCH (05:23)
[2016-08-23 06:24] LABS: Calcium 7.7 mg/dL (8.6-10.8); Potassium 4.5 mEq/L (3.5-4.5)
[2016-08-23] MEDS: Dexmedetomidine HCl 400 MCG/100 ML MLS IVC SCH (07:45)
[2016-08-23] MEDS: Nicotine 21 MG PATCH.TD24 TD SCH (07:46)
[2016-08-23] MEDS: BuPROPion XL (24 HR) 150 MG TABLET PO SCH (07:46)
[2016-08-23] MEDS: Folic Acid 1 MG TABLET PO SCH (07:46)
[2016-08-23] MEDS: Vitamin B Complex/Vit C/Vit E 1 EACH TABLET PO SCH (07:46)
[2016-08-23] MEDS: Lactobacillus 1 EACH CAP.SPRINK PO SCH ×2 (07:46→21:30)
[2016-08-23] MEDS: Cefepime HCl 1,000 MG in D5% in Water (Mini-Bag+) 100 ML IVPB SCH (07:46)
[2016-08-23] MEDS: Furosemide 40 MG/4 ML VIAL IVP SCH (07:48)
[2016-08-23] MEDS: Thiamine (B-1) 100 MG TABLET PO SCH (07:49)
[2016-08-23] MEDS ORDERED: 0.9 % Sodium Chloride 1,000 ML IVC ONE ×2 (07:54→15:47)
--- NOTE | 2016-08-23 08:08 | Electrocardiograph Report ---
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
[2016-08-23] MEDS: Budesonide/Formoterol 160/4.5 MDI IH SCH ×2 (09:27→22:08)
--- NOTE | 2016-08-23 11:30 | Internal Med Progress Note ---
Date of Encounter: 08/23/16 Time of Encounter: 11:29 - Assessment and plan (1) Alcohol withdrawal Current Visit: Yes Status: Acute Assessment and plan: D.c Librium and ativan Continue low dose precedex Qualifiers: Complication of substance-induced condition: uncomplicated Qualified Code(s ): F10.230 - Alcohol dependence with withdrawal, uncomplicated (2) Cellulitis Current Visit: Yes Status: Acute Assessment and plan: Legs with evidence of chronic venous stasis, no definite cellulitis Vancomycin was discontinued 08/22, continue cefepime, renally dosed Qualifiers: Site of cellulitis: extremity Site of cellulitis of extremity: lower extremity Laterality: unspecified laterality Qualified Code(s): L03.119 - Cellulitis of unspecified part of limb (3) Acute on chronic diastolic (congestive) heart failure Current Visit: Yes Status: Acute Assessment and plan: Patient with BEN now Hold lasix/ACEI IVF being given for now Patient at risk of respiratory failure and mechanical intubation as he is both in fluid overload and has BEN (4) Alcohol abuse Current Visit: Yes Status: Chronic Assessment and plan: Patient drinks a liter of whiskey per day as well as several cans of beer and some tequila. Now in DTs (5) Smoker Current Visit: Yes Status: Chronic Assessment and plan: on NRT, continue (6) Morbid obesity with BMI of 45.0-49.9, adult Current Visit: Yes Status: Chronic (7) COPD (chronic obstructive pulmonary disease) Current Visit: Yes Status: Chronic Assessment and plan: -Continue duonebs, symbicort, cefepime -Pulm eval noted and appreciated -CT scan of chest was not impressive for pneumonia - BiPAP at night and as needed Qualifiers: COPD type: unspecified COPD Qualified Code(s): J44.9 - Chronic obstructive pulmonary disease, unspecified (8) Sleep apnea Current Visit: Yes Status: Suspected Assessment and plan: Suspected BiPAP at night Qualifiers: Sleep apnea type: unspecified type Qualified Code(s): G47.30 - Sleep apnea , unspecified (9) BEN (acute kidney injury) Current Visit: Yes Status: Acute Assessment and plan: Possibly from medications and hypotensive episodes GIven 1L bolus, continue maintenance Hold Lasix/ACEI/BP meds Will consult renal if patient does not improve - Subjective Interval history: 61 M with Alcohol abuse being managed for CHFE, Acute respo failure secondary to COPDE, Suspected pneumonia, Alcohol withdrawal Seen at bedside with spouse No new complains I/O -7L, Patient required IVF boluses for hypotension during the early hrs of this morning His renal function has worsened Patient continues to be in DTs with fever, tremors and disorientation - Constitutional Vitals: Temp Pulse Resp BP Pulse Ox 98.1 F 83 18 82/51 92 08/23/16 07:45 08/23/16 07:45 08/23/16 11:09 08/23/16 11:09 08/23/16 11:09 General appearance: Present: A&O X 3, morbidly obese, pleasant, no acute distress, severe distress (moderate), answers questions appropriately - Head Head exam: Present: atraumatic, normocephalic - Eye Eye exam: Present: PERRL, conjuntiva pink, sclera anicteric Pupils: Present: PERRL - Neck Neck exam general surgery: Present: supple, trachea midline. Absent: lymphadenopathy - Respiratory Respiratory exam: Present: CTAB. Absent: accessory muscle use, rales, rhonchi, wheezes - Cardiovascular Cardiovascular exam: Present: RRR, +S1, +S2. Absent: diastolic murmur, gallop, rubs, systolic murmur - GI/Abdominal GI/Abdominal exam: Present: normal bowel sounds, soft, no peritoneal signs. Absent: distended, tenderness - Extremities Exam Extremities exam: Present: pedal edema, warm, radial pulses palpable and symetrical. Absent: calf tenderness, cyanotic - Neurological Exam Neurological exam: Present: alert, CN II-XII intact, oriented X3, no focal deficits. Absent: pronater drift, facial droop, speech deficit - Skin Skin exam: Present: dry, intact Internal Medicine: Result - Labs CBC & Chem 7: 08/23/16 03:42 08/23/16 05:53 Labs: Short CBC 08/23/16 Range/Units 03:42 WBC 4.7 (4.3-11.1) K/mcL Hgb 13.3 (12.9-16.9) g/dL Hct 40.1 (37.5-50.1) % Plt Count 196 (140-400) K/mcL Neutrophils # 3.2 (1.6-8.9) K/mcL BMP 08/23/16 05:53 Sodium 128 L Potassium 4.5 Chloride 95 L Carbon Dioxide 24 BUN 29 H D Creatinine 3.19 H D Glucose 93 Calcium 7.7 L - ABG Interpretation ABG results: ABG ABG pH 7.47 pH Units (7.32-7.45) H 08/21/16 06:35 ABG pCO2 40 mmHg (35-45) 08/21/16 06:35 ABG pO2 85 mmHg (85-104) 08/21/16 06:35 ABG O2 Saturation 97 % (95-98) 08/21/16 06:35 Consult Discharge Plan - Plan Referrals: Margarito Cordova MD [Primary Care Provider] -
[2016-08-23] MEDS: 0.9 % Sodium Chloride 1,000 ML IVC SCH (13:45)
[2016-08-23] MEDS ORDERED: 0.9 % Sodium Chloride 1,000 ML ONE (13:49)
--- NOTE | 2016-08-23 14:39 | Event Note ---
Date of Encounter: 08/23/16 Time of Encounter: 14:37 Patient continues to be hypotensive Will give additional boluses, d/c precedex If BP does not improve, patient will be transferred to ICU and started on pressors. ICu team will be informed prn
[2016-08-23] MEDS ORDERED: Cefepime HCl 1,000 MG in D5% in Water (Mini-Bag+) 100 ML IVPB SCH (18:00)
[2016-08-24] MEDS: Ipratropium/Albuterol Neb 3 ML IH SCH ×4 (03:31→21:08)
[2016-08-24] MEDS: 0.9 % Sodium Chloride 1,000 ML IVC SCH ×2 (05:21→16:46)
[2016-08-24] MEDS: *HR* Enoxaparin 30 MG/0.3 ML SYRINGE SQ SCH (05:24)
[2016-08-24 06:01] LABS: Calcium 7.4 mg/dL (8.6-10.8); Potassium 4.2 mEq/L (3.5-4.5)
[2016-08-24] MEDS ORDERED: Cefepime HCl 1,000 MG in D5% in Water (Mini-Bag+) 100 ML IVPB SCH (08:00)
[2016-08-24] MEDS: Lactobacillus 1 EACH CAP.SPRINK PO SCH ×2 (10:20→22:11)
[2016-08-24] MEDS: Folic Acid 1 MG TABLET PO SCH (10:20)
[2016-08-24] MEDS: Nicotine 21 MG PATCH.TD24 TD SCH (10:20)
[2016-08-24] MEDS: BuPROPion XL (24 HR) 150 MG TABLET PO SCH (10:44)
[2016-08-24] MEDS: Vitamin B Complex/Vit C/Vit E 1 EACH TABLET PO SCH (10:44)
[2016-08-24] MEDS: Thiamine (B-1) 100 MG TABLET PO SCH (10:44)
[2016-08-24] MEDS: Budesonide/Formoterol 160/4.5 MDI IH SCH ×2 (10:52→21:08)
--- NOTE | 2016-08-24 13:27 | Nephrology Consult Note ---
Date of Encounter: 08/24/16 Time of Encounter: 13:25 Assessment and Plan (1) BEN (acute kidney injury) Current Visit: Yes Status: Acute The patient has nonoliguric acute kidney injury. This is likely multifactorial in etiology. Potential etiologies include radiocontrast administration on August 21, vancomycin, diuresis for acute diastolic congestive heart failure, and hypotension on August 23. In addition the patient also seems to be developing a diffuse erythematous rash which may be a drug rash and may be suggesting acute interstitial nephritis. I would suggest holding the patient's diuretics. I am going to place the patient on some maintenance IV fluids to see if this helps improve his renal function. We will check a urine for eosinophils. Additional nephrotoxins should be avoided. (2) Cellulitis Current Visit: Yes Status: Acute Qualifiers: Site of cellulitis: extremity Site of cellulitis of extremity: lower extremity Laterality: unspecified laterality Qualified Code(s): L03.119 - Cellulitis of unspecified part of limb (3) Acute on chronic diastolic (congestive) heart failure Current Visit: Yes Status: Acute (4) Alcohol abuse Current Visit: Yes Status: Chronic History of Present Illness - History of Present Illness This is a 61-year-old male admitted on August 16 with complaints of progressive lower extremity swelling and shortness of breath. Patient was diagnosed with diastolic congestive heart failure lower extremity cellulitis as well as alcohol abuse. Baseline creatinine is 0.9-1.0. Chest x-ray was unremarkable. The patient did undergo a CT scan of the chest with contrast on August 21. On August 22 her creatinine was up to 1.45. It subsequently discontinued to increase. Most recent creatinine is 3.56. Patient had been on vancomycin for the cellulitis. That medication has been discontinued. On August 21 the patient developed a fever and increasing shortness of breath. Was felt the patient may have had some type of underlying infection and/or was going through alcohol withdrawal. On August 23 patient became hypotensive and was subsequently transferred to the intensive care unit and placed on dopamine. Currently the patient is off dopamine. Blood pressure is 112/72. The patient is making urine. He is alert and oriented. He says he feels fine. He denies any shortness of breath. He says that the swelling of his lower extremities has improved. Past Med Surg Social Fam HX - Past Medical History Medical history: hypertension Psychiatric history: no psych history - Social History Smoking Status: Current every day smoker Smokeless Tobacco Status: No Alcohol use: heavy Drug use: none - Family History Father Hx Family Cardiac Disorders: Yes Brother Hx Family Cardiac Disorders: Yes Mother Living Status: Age at : 67 Cause of : Colon CA Hx Family Cancer: Yes Medications and Allergies Albuterol Sulfate [Proair Respiclick] 2 puff IH Q4H PRN 08/16/16 [History] Buprenorphine HCl/Naloxone HCl [Buprenorphin-Naloxon 8-2 mg Sl] 1.25 tab SL DAILY 08/16/16 [History] Bupropion HCl [Wellbutrin Xl] 300 mg PO QAM 08/16/16 [History] Lisinopril [Zestril] 10 mg PO DAILY 08/16/16 [History] Loratadine [Allergy Relief] 10 mg PO DAILY 08/16/16 [History] Allergies Penicillins Allergy (Verified 08/16/16 14:21) Blister Review of Systems Nose, mouth and throat: no dizziness, no headache(s) Cardiovascular: dyspnea, dyspnea on exertion, edema, no chest pain, no palpitations Respiratory: dyspnea, dyspnea on exertion Gastrointestinal: no abdominal pain, no change in bowel habits Musculoskeletal: no muscle weakness, no numbness Integumentary: no hirsutism, no striae Neurological: as per HPI Psychiatric: no depression, no difficulty concentrating Endocrine: as per HPI Exam - Vital Signs Vital signs: Initial Vital Signs Temp Pulse Resp BP Pulse Ox 99.6 F 109 24 127/70 92 08/16/16 14:21 08/16/16 14:21 08/16/16 14:21 08/16/16 14:21 08/16/16 14:21 Vital Signs - Last 8 Hours Temp Pulse Resp BP Pulse Ox 08/24/16 12:15 82 20 112/72 94 08/24/16 12:00 97.6 F 08/24/16 11:15 80 21 95/57 96 08/24/16 10:53 19 92 08/24/16 10:30 81 21 102/53 96 08/24/16 09:15 85 20 90/61 96 08/24/16 08:20 90 21 107/69 96 08/24/16 07:30 80 20 100/59 90 08/24/16 07:00 98.0 F 06/06/17 06:30 81 20 97/60 94 Intake and Output 08/23/16 08/24/16 08/24/16 23:59 07:59 15:59 Intake Total 300 / 300 1492 / 1492 Output Total 250 / 250 1950 / 1950 400 / 400 Balance 50 / 50 -458 / -458 -400 / -400 Intake: IV Fluids 1192 / 1192 0.9 % Sodium Chloride 1, 1000 / 1000 000 ML @ 80 mls/hr IVC . [id number] [facility] Rx#: [id number] DOPamine Premix 400mg/ 192 / 192 250mL 400 mg In 250 ml @ 5 MCG/KG/MIN 27.319 mls/ hr IVC .[id number] [facility] Rx#: [id number] Oral 300 / 300 300 / 300 Output: Urine 1500 / 1500 Urethral (Jenkins) 650 / 650 Stool 250 / 250 Catheter 450 / 450 400 / 400 Other: Stool Size Large Large Stool Consistency loose loose liquid liquid Stool Color Brown Brown Yellow # Bowel Movements 2 Weight 148 kg Blood Glucose* 108 - General Appearance Exam: The patient was seen in the intensive care unit. Blood pressure 112/72. Patient is alert and oriented. He is in no acute distress. He appears to be developing a diffuse erythematous rash over his trunk and upper extremities. Lungs symmetric breath sounds otherwise clear. Heart regular rate and rhythm with a 2/6 soft ejection murmur. Abdomen is soft bowel sounds are present. No masses or organomegaly bruits guarding or rigidity noted. Lower extremities show evidence of chronic stasis changes. There is minimal lower extremity swelling. Jenkins catheter is in place. Results - Lab Results 08/23/16 03:42 08/24/16 05:40 Most recent lab results ABG pH 7.47 pH Units (7.32-7.45) H 08/21/16 06:35 ABG pCO2 40 mmHg (35-45) 08/21/16 06:35 ABG pO2 85 mmHg (85-104) 08/21/16 06:35 ABG HCO3 29.1 mEQ/L (21-27) H 08/21/16 06:35 ABG O2 Saturation 97 % (95-98) 08/21/16 06:35 Calcium 7.4 mg/dL (8.6-10.8) L 08/24/16 05:40 Magnesium 2.0 mg/dL (1.6-2.6) 08/22/16 06:11 Consult Discharge Plan - Plan Referrals: Margarito Cordova MD [Primary Care Provider] -
[2016-08-24] MEDS ORDERED: 0.9 % Sodium Chloride 1,000 ML IVC SCH (13:32)
--- NOTE | 2016-08-24 14:36 | Pulmonology Progress Note ---
<Jaylin Hammond - Last Filed: 08/24/16 16:36> Date of Encounter: 08/24/16 Time of Encounter: 14:34 Assessment and Plan (1) Respiratory failure with hypoxia Current Visit: Yes Status: Acute Hypoxic respiratory failure in the setting of COPD without exacerbation and tobacco abuse, suspected JOHN Plan: -Patient has significant 1- 2 PPD looking history since age 13 -Continue Symbicort and DuoNeb therapy -Once pressures have stabilized patient may benefit from nighttime oximetry study -Recommend outpatient polysomnography for suspected JOHN Qualifiers: Chronicity: acute on chronic Qualified Code(s): J96.21 - Acute and chronic respiratory failure with hypoxia (2) COPD (chronic obstructive pulmonary disease) Current Visit: Yes Status: Chronic Qualifiers: COPD type: unspecified COPD Qualified Code(s): J44.9 - Chronic obstructive pulmonary disease, unspecified (3) Tobacco abuse Current Visit: Yes Status: Acute Counseling on smoking cessation (4) Suspected sleep apnea Current Visit: Yes Status: Acute (5) Alcohol withdrawal Current Visit: Yes Status: Acute Qualifiers: Complication of substance-induced condition: uncomplicated Qualified Code(s ): F10.230 - Alcohol dependence with withdrawal, uncomplicated (6) Prerenal acute renal failure Current Visit: Yes Status: Acute Non-oliguric pre-renal renal failure with non-anion gap metabolic acidosis. Suspect that this is secondary to iatrogenic effects of antibiotic administration (vancomycin), diuresis, contrast dye. Plan: -Avoid nephrotoxic agents -Stop antibiotics -IVF hydration -Monitor labs (7) Hypovolemic shock Current Visit: Yes Status: Acute (8) Hypotension, iatrogenic Current Visit: Yes Status: Acute (9) Systolic heart failure Current Visit: Yes Status: Acute New diagnosis the patient during this visit. Echo on 08/17/2016 shows an LVEF of 65% with normal LV size and systolic function. (10) Macrocytosis Current Visit: Yes Status: Chronic (11) Morbid obesity with BMI of 45.0-49.9, adult Current Visit: Yes Status: Chronic (12) Alcohol abuse Current Visit: Yes Status: Chronic (13) DVT prophylaxis Current Visit: Yes Status: Acute Lovenox PARAFFINER: Patient currently alert and oriented, agitated, that with staff and care. Patient has a history of alcohol abuse, opioid abuse, tobacco abuse with symptoms of withdrawal during this hospitalization. Blood pressure has stabilized, CIWA score has been 8 today, will initiate appropriate CIWA protocol for symptoms. Pulmonary: Hypoxic respiratory failure in the setting of COPD without exacerbation and tobacco abuse, suspected JOHN. The patient he has a history of COPD, is not on any home medications for treatment other than albuterol inhaler. Patient also has a significant smoking history of one to 2 packs per day since age 13. On exam he has diffuse wheezing which is worse on the right. This currently on Symbicort and DuoNeb inhalers therapy. Recommend continuing these medications. Patient has also been using BiPAP device when sleeping suspect possible JOHN. Recommend nighttime oximetry study once the patient has stabilized hemodynamically. Patient would also benefit from an outpatient polysomnography. Cardiovascular: Patient became hypotensive yesterday after being on Precedex for withdrawal symptoms. Patient has received 1 L NS. Patient was on dobutamine gtt overnight, but has not been on this all day. Pressures have stabilized in the to 110 systolic on average. Will give 1.5 L normal saline. Suspect hypovolemic shock which appears to be stabilizing, will continue to monitor volume status and replete as necessary. GI: Nutrition: Patient is tolerating a renal diet. GI Prophylaxis: Not necessary with patient tolerating diet. Per nursing staff the patient has had multiple loose stools today with a foul smell. We will send stool sample for C. difficile testing. Renal: Non-oliguric pre-renal renal failure with non-anion gap metabolic acidosis. Suspect that this is iatragenic secondary to diuresis with Lasix, vancomycin administration and contrast administration. SCr currently 3.56. Will continue to avoid nephrotoxic agents, stop antibiotics, hold lasix, continue hydration and reassess. Will recheck BMP, make this evening. Repeat labs in the morning ID: The patient is currently afebrile, has had fevers on and off during admission. No obvious sources of infection. WBC stable. Previous blood culture no growth to date. Will obtain blood culture, urine culture, sputum culture. There is question of whether the flushing versus rash on the patient secondary to a potential drug reaction, most likely due to a fourth-generation beta-lactam in the setting of penicillin allergy. Will stop antibiotic coverage for now. Heme/Onc: H/H stable. DVT Prophylaxis: Lovenox. Repeat CBC in the morning Endorcine: Blood sugars are stable. Continue to monitor Skin: Patient has flushing versus rash on chest, arms, abdomen. Per family this is new onset admission. Suspect possibly a drug reaction, patient was on fourth-generation beta-lactam the setting of penicillin allergy. It is possible that this is the cause. It is also possible that is secondary to withdrawal symptoms versus anxiety as patient is very agitated today. Is also possible this is an 81 and. We will continue to monitor. Stopping antibiotics. Patient also has chronic venous stasis changes bilateral lower extremities, does not appear to be cellulitic in nature. Lines: all lines checked and no evidence of infections. Jenkins and peripheral IV in place Patient stable to go to a stepdown bed. CODE STATUS: FULL CODE Subjective Principal diagnosis: Hypoxic respiratory failure, copd, alexandro, hypovolemic shock Interval history: Senia Berkowitz is a 61-year-old male, pulmonary critical care has been reconsulted on this patient who has previously seen on 08/21/2016. He has been on CIWA protocol and was on Precedex when he developed hypotension and placed on a dobutamine drip. The patient has been off the drift all day and his pressures have stabilized. The patient originally presented to the hospital complaining of increased lower extremity edema, shortness of breath. He states that he has had swelling of both legs for the last 6 months. He has more recently been working longer hours and has been dehydrated while working. He states that he has had increased swelling during this time. He also has noticed that he will occasionally have brown urine and at that point will "chug " 3 Gatorades quickly and his urine will turn yellow again, however this problem returns day after day. He has a history of opioid abuse, has been on Suboxone for the last 2 years. He also has a significant alcohol abuse history. For the last 2 years he has been drinking 3-4 pints of whiskey a day, supplemented with vodka when he runs out of whiskey especially on Sundays, and drinking 6-12 beers in addition to his liquor consumption. He has been smoking 1-2 PPD of cigarettes since age 13. He states that he has no prior CHF diagnosis. He complains of being uncomfortable and agitated currently. He has been very upset that he has been forced to withdraw from his Suboxone during his hospital stay. He requests getting up in the chair so that he can cough as he is not able to do so while lying in the bed. He states that he has a slightly productive cough, but does not feel that short of breath. He denies chest pain, abdominal pain. He has been having some liquid stool throughout the day. Objective PUL Vital signs: Last Vital Signs Temp 97.6 F 08/24/16 12:00 Pulse 82 08/24/16 12:15 Resp 20 08/24/16 12:15 BP 112/72 08/24/16 12:15 Pulse Ox 94 08/24/16 12:15 General appearance: no acute distress, agitated, appears uncomfortable Eyes: nonicteric ENT: oropharynx dry Neck: supple, no lymphadenopathy, no JVD Effort: mildly labored Auscultation: bilateral: wheezes (R>L) Cardiovascular: regular rate and rhythm Integumentary: rash, erythema, other (Chronic venous stasis b/l LE) Extremities: no cyanosis, pulses normal, edema (Trace) Musculoskeletal: no deformities normal mental status, non-focal exam, pupils equal and round anxious, other (Agitated, angry) Results - Laboratory Findings CBC and BMP: 08/24/16 14:26 08/24/16 05:40 ABG ABG pH 7.47 pH Units (7.32-7.45) H 08/21/16 06:35 ABG pCO2 40 mmHg (35-45) 08/21/16 06:35 ABG pO2 85 mmHg (85-104) 08/21/16 06:35 ABG O2 Saturation 97 % (95-98) 08/21/16 06:35 Abnormal lab findings: Abnormal lab results RBC 3.72 M/mcL (4.19-5.50) L 08/23/16 03:42 MCV 107.8 fL (83.0-100.0) H 08/23/16 03:42 MCH 35.8 pg (28.0-33.3) H 08/23/16 03:42 Band Neutrophils % 20.0 % (0-4) H 08/23/16 03:42 Nucleated RBCs/100 WBC 0.4 /100 WBC (0) H 08/23/16 03:42 Reactive Lymphocytes Present (Not Present) A 08/23/16 03:42 Clumped Platelets Few (Not Present) A 08/21/16 04:40 Large Platelets Present (Not Present) A 08/23/16 03:42 ABG pH 7.47 pH Units (7.32-7.45) H 08/21/16 06:35 ABG HCO3 29.1 mEQ/L (21-27) H 08/21/16 06:35 ABG Total CO2 30.3 mEq/L (20-26) H 08/21/16 06:35 ABG Base Excess 5.0 mEq/L (-2.0 to 3.0) H 08/21/16 06:35 Sodium 132 mEq/L (136-145) L 08/24/16 05:40 Carbon Dioxide 18 mEq/L (19-29) L 08/24/16 05:40 BUN 39 mg/dL (8-26) H D 08/24/16 05:40 Creatinine 3.56 mg/dL (0.72-1.25) H 08/24/16 05:40 Est GFR ( Amer) 21 (> 60) L 08/24/16 05:40 Est GFR (Non-Af Amer) 17 (> 60) L 08/24/16 05:40 Glucose 101 mg/dL (70-99) H 08/24/16 05:40 POC Glucose 108 (58-89) H 08/23/16 23:22 Calcium 7.4 mg/dL (8.6-10.8) L 08/24/16 05:40 AST 37 Units/L (5-34) H 08/21/16 04:40 C-Reactive Protein 88 mg/L (Less than 5) H 08/21/16 04:40 Albumin 3.0 g/dL (3.5-5.0) L 08/21/16 04:40 Albumin/Globulin Ratio 0.9 (1.1-2.2) L 08/21/16 04:40 Lipase 6 Units/L (8-78) L 08/21/16 04:40 Ethyl Alcohol 80 mg/dL (0-10) H 08/16/16 17:14 - Clinical Findings Intake & Output: Intake & Output 08/23/16 08/24/16 08/24/16 23:59 07:59 15:59 Intake Total 300 / 300 1492 / 1492 Output Total 250 / 250 1950 / 1950 400 / 400 Balance 50 / 50 -458 / -458 -400 / -400 Weight 148 kg Consult Discharge Plan - Plan Referrals: Art,Margarito Porter MD [Primary Care Provider] - <Jorge Alberto Heart W - Last Filed: 08/24/16 18:20> Date of Encounter: 08/24/16 Objective PUL Vital signs: Last Vital Signs Temp 97.9 F 08/24/16 15:40 Pulse 80 08/24/16 16:20 Resp 21 08/24/16 16:20 BP 105/70 08/24/16 16:20 Pulse Ox 93 08/24/16 16:20 Results - Laboratory Findings CBC and BMP: 08/24/16 14:26 08/24/16 17:18 ABG ABG pH 7.47 pH Units (7.32-7.45) H 08/21/16 06:35 ABG pCO2 40 mmHg (35-45) 08/21/16 06:35 ABG pO2 85 mmHg (85-104) 08/21/16 06:35 ABG O2 Saturation 97 % (95-98) 08/21/16 06:35 PT/INR, D-dimer PT 12.6 Seconds (9.4-12.1) H 08/24/16 17:18 Abnormal lab findings: Abnormal lab results RBC 3.49 M/mcL (4.19-5.50) L 08/24/16 14:26 Hgb 12.8 g/dL (12.9-16.9) L 08/24/16 14:26 Hct 37.3 % (37.5-50.1) L 08/24/16 14:26 MCV 106.9 fL (83.0-100.0) H 08/24/16 14:26 MCH 36.7 pg (28.0-33.3) H 08/24/16 14:26 Band Neutrophils % 20.0 % (0-4) H 08/23/16 03:42 Nucleated RBCs/100 WBC 0.4 /100 WBC (0) H 08/23/16 03:42 Reactive Lymphocytes Present (Not Present) A 08/24/16 14:26 Clumped Platelets Few (Not Present) A 08/21/16 04:40 Large Platelets Present (Not Present) A 08/23/16 03:42 PT 12.6 Seconds (9.4-12.1) H 08/24/16 17:18 APTT 24.7 Seconds (26.0-36.0) L 08/24/16 17:18 ABG pH 7.47 pH Units (7.32-7.45) H 08/21/16 06:35 ABG HCO3 29.1 mEQ/L (21-27) H 08/21/16 06:35 ABG Total CO2 30.3 mEq/L (20-26) H 08/21/16 06:35 ABG Base Excess 5.0 mEq/L (-2.0 to 3.0) H 08/21/16 06:35 Sodium 134 mEq/L (136-145) L 08/24/16 17:18 Carbon Dioxide 18 mEq/L (19-29) L 08/24/16 17:18 BUN 35 mg/dL (8-26) H 08/24/16 17:18 Creatinine 2.39 mg/dL (0.72-1.25) H 08/24/16 17:18 Est GFR ( Amer) 34 (> 60) L 08/24/16 17:18 Est GFR (Non-Af Amer) 28 (> 60) L 08/24/16 17:18 Glucose 100 mg/dL (70-99) H 08/24/16 17:18 POC Glucose 108 (58-89) H 08/23/16 23:22 Calcium 7.7 mg/dL (8.6-10.8) L 08/24/16 17:18 AST 37 Units/L (5-34) H 08/21/16 04:40 C-Reactive Protein 88 mg/L (Less than 5) H 08/21/16 04:40 Albumin 3.0 g/dL (3.5-5.0) L 08/21/16 04:40 Albumin/Globulin Ratio 0.9 (1.1-2.2) L 08/21/16 04:40 Lipase 6 Units/L (8-78) L 08/21/16 04:40 Ethyl Alcohol 80 mg/dL (0-10) H 08/16/16 17:14 - Clinical Findings Intake & Output: Intake & Output 08/24/16 08/24/16 08/24/16 07:59 15:59 23:59 Intake Total 1492 / 1492 Output Total 1949 / 1949 1425 / 1425 Balance -458 / -458 -1425 / -1425 - Attending Attestation I examined this patient and my medical decision-making was reviewed with the WEATHER STRIPPER/PA/Advanced Practice Nurse/Resident Physician. I agree with the documented findings, disposition and treatment plan as described except to the extent set forth below. Patient seen and examined at bedside Labs, radiology, chart personally reviewed. All lines examined without evidence of infection. Neuropsych: History of alcohol abuse and narcotic abuse on Suboxone therapy experiencing withdrawal symptoms although today much more alert and while anxious and agitated this appears to be improving as well we will continue CIWA protocol and can give low-dose Precedex as needed for her setting agitation/ increased CIWA score Pulm: Significant history underlying sick tobacco abuse suspected COPD continue scheduled bronchodilators including inhaled corticosteroid suspect obstructive sleep apnea continue nocturnal positive airway pressure acceptable oxygenation today on 2-3 L nasal cannula. Likely does have a component of cardiogenic pulmonary edema Cards: SPECT heart failure with preserved ejection fraction has been over diuresed leading to hypovolemia and hypotension this is improved with administration of crystalloid infusion patient had been on low-dose vasopressor but this has been weaned off I would not advocate for further diuresis at this time. Continue crystalloid infusion to 1.5 L positive and then can proceed with intermittent fluid boluses as needed. FEN-GI: Continue to advance diet as tolerated. Renal: Nonoliguric acute kidney injury which is multifactorial he has had several insults including hypotension and possible sepsis medication effect including vancomycin has a blanching erythema which could possibly represent acute interstitial nephritis from beta lactam and contrast-induced nephropathy and differential, he has also had issues with obstructive uropathy and has had to have intermittent straight catheterization now has Jenkins catheter in place. Nephrology following given a bit more fluid recheck it kidney function this evening continue to monitor urine output he has a mild non-gap metabolic acidosis which is secondary to the same which we will continue to follow but no acute indication for dialysis. Replace lites per protocol ID: Possible sepsis although is very unclear to me that he is acutely infected or whether sources. Given he has an allergy to penicillin cefepime had been given for several days I doubt that this is caused the blanching erythema noted around his neck and back however given how uncertain I am of where infection is I favor holding all antimicrobials at present reculturing patient - Patient has had watery diarrhea over the course of the last 24-36 hours with possibility of sepsis which has prompted evaluation for C Dfiff Heme/Onc: Continue chemical DVT prophylaxis H&H and platelet count are stable Endo: Local monitor in stable patient is not diabetic Integ/MSK: Lower extremity edema with venous stasis ulcer changes no evidence of cellulitis at present he does have a blanching erythema which is unclear if this is related to drug effect but all new medications that have been administered including antimicrobials have been stopped we will continue to monitor present patient remains afebrile CODE: Full code I discussed case with patient and family at bedside
[2016-08-24 14:39] LABS: Basophils % 0.4 %; Eosinophils # 0.3 K/mcL (0.0-0.6); Eosinophils % 5.8 %; Hematocrit 37.3 % (37.5-50.1); Hemoglobin 12.8 g/dL (12.9-16.9); Immature Granulocytes % 1.5 % (0-4); Lymphocytes # 1.2 K/mcL (0.6-4.6); Lymphocytes % 25.7 %; Mean Corpuscular HGB Conc 34.3 g/dL (31.6-35.5); Mean Corpuscular Hemoglobin 36.7 pg (28.0-33.3); Mean Corpuscular Volume 106.9 fL (83.0-100.0); Mean Platelet Volume 9.9 fL (9.4-12.4); Monocytes # 0.4 K/mcL (0.0-1.3); Monocytes % 8.4 %; Neutrophils # 2.8 K/mcL (1.6-8.9); Platelet Count 165 K/mcL (140-400); Red Blood Count 3.49 M/mcL (4.19-5.50); Red Cell Distribution Width 13.9 % (11.5-14.5); Segmented Neutrophils % 58.2 %
[2016-08-24 15:03] LABS: Platelet Estimate Normal (Normal); Reactive Lymphocytes Present (Not Present)
--- NOTE | 2016-08-24 16:40 | Internal Med Progress Note ---
Date of Encounter: 08/24/16 Time of Encounter: 10:00 - Assessment and plan (1) Alcohol withdrawal Current Visit: Yes Status: Acute Assessment and plan: Continue low dose precedex Qualifiers: Complication of substance-induced condition: uncomplicated Qualified Code(s ): F10.230 - Alcohol dependence with withdrawal, uncomplicated (2) Respiratory failure with hypoxia Current Visit: Yes Status: Acute Assessment and plan: likely due to COPD and JOHN, continue Duonebs, Symbicort, Pulm/Critical care following Qualifiers: Chronicity: acute on chronic Qualified Code(s): J96.21 - Acute and chronic respiratory failure with hypoxia (3) BEN (acute kidney injury) Current Visit: Yes Status: Acute Assessment and plan: Multifactorial, Nephrology following Hold Lasix/ACEI/BP meds (4) Cellulitis Current Visit: Yes Status: Acute Assessment and plan: Legs with evidence of chronic venous stasis, continue cefepime, renally dosed Qualifiers: Site of cellulitis: extremity Site of cellulitis of extremity: lower extremity Laterality: unspecified laterality Qualified Code(s): L03.119 - Cellulitis of unspecified part of limb (5) Suspected sleep apnea Current Visit: Yes Status: Acute Assessment and plan: may need CPAP, Pulmonology following (6) Morbid obesity with BMI of 45.0-49.9, adult Current Visit: Yes Status: Chronic Assessment and plan: encourage weight loss (7) Alcohol abuse Current Visit: Yes Status: Chronic Assessment and plan: Patient drinks a liter of whiskey per day as well as several cans of beer and some tequila (8) Tobacco abuse Current Visit: Yes Status: Acute Assessment and plan: NRT - Time Spent With Patient 25 - 35 minutes - Subjective Interval history: Patient awake and alert. Transferred to ICU for hypotension. Was on Dopamine. Patient has been anxious and agitated at times. Repeatedly asks for his Suboxone. No fever. BP continues to be low. Worsening BEN with oliguria. Plan as per nephrology and critical care. - Constitutional Vitals: Temp Pulse Resp BP Pulse Ox 97.6 F 80 21 105/70 93 08/24/16 12:00 08/24/16 16:20 08/24/16 16:20 08/24/16 16:20 08/24/16 16:20 General appearance: Present: A&O X 3, morbidly obese, no acute distress Exam: anxious and agitated at times - Head Head exam: Present: atraumatic - Neck Neck exam general surgery: Present: supple - Respiratory Respiratory exam: Present: CTAB. Absent: rhonchi, wheezes - Cardiovascular Cardiovascular exam: Present: RRR, +S1, +S2 - GI/Abdominal GI/Abdominal exam: Present: distended (obese), soft. Absent: guarding, tenderness - Extremities Exam Extremities exam: Present: pedal edema (mild), radial pulses palpable and symetrical. Absent: cyanotic - Neurological Exam Neurological exam: Present: alert, oriented X3, no focal deficits - Psychiatric Psychiatric exam: Present: agitated, anxious Internal Medicine: Result - Labs CBC & Chem 7: 08/24/16 14:26 08/24/16 05:40 Labs: Short CBC 08/24/16 Range/Units 14:26 WBC 4.8 (4.3-11.1) K/mcL Hgb 12.8 L (12.9-16.9) g/dL Hct 37.3 L (37.5-50.1) % Plt Count 165 (140-400) K/mcL Neutrophils # 2.8 (1.6-8.9) K/mcL BMP 08/24/16 05:40 Sodium 132 L Potassium 4.2 Chloride 102 Carbon Dioxide 18 L BUN 39 H D Creatinine 3.56 H Glucose 101 H Calcium 7.4 L - ABG Interpretation ABG results: ABG ABG pH 7.47 pH Units (7.32-7.45) H 08/21/16 06:35 ABG pCO2 40 mmHg (35-45) 08/21/16 06:35 ABG pO2 85 mmHg (85-104) 08/21/16 06:35 ABG O2 Saturation 97 % (95-98) 08/21/16 06:35 - Impressions Impressions Chest X-Ray 08/24/16 14:38 IMPRESSION: Moderate rotation with no acute pulmonary process. D/ / 08/24/2016 15:50:35 Nicanor Cleveland MD / stephani Interpreting Provider: Nicanor Cleveland MD Consult Discharge Plan - Plan Referrals: Margarito Cordova MD [Primary Care Provider] -
[2016-08-24] MEDS ORDERED: *HR* LORazepam 2 MG/ML VIAL IVP PRN ×3 (17:04)
[2016-08-24 17:41] LABS: INR 1.2; Prothrombin Time 12.6 Seconds (9.4-12.1)
[2016-08-24 17:44] LABS: Activated Partial Thrombo Time 24.7 Seconds (26.0-36.0)
[2016-08-24 17:48] LABS: Calcium 7.7 mg/dL (8.6-10.8); Magnesium 2.2 mg/dL (1.6-2.6); Potassium 3.9 mEq/L (3.5-4.5)
[2016-08-25] MEDS: 0.9 % Sodium Chloride 1,000 ML IVC SCH (02:46)
[2016-08-25] MEDS: Ipratropium/Albuterol Neb 3 ML IH SCH ×4 (03:55→20:33)
--- NOTE | 2016-08-25 07:00 | Pulmonology Progress Note ---
<Jaylin Hammond - Last Filed: 08/25/16 11:46> Date of Encounter: 08/25/16 Time of Encounter: 07:00 Assessment and Plan (1) Respiratory failure with hypoxia Current Visit: Yes Status: Acute Hypoxic respiratory failure in the setting of COPD without exacerbation and tobacco abuse, suspected JOHN Patient has significant 1- 2 PPD looking history since age 13 Plan: -Continue Symbicort and DuoNeb therapy -Patient may benefit from nighttime oximetry study -Recommend outpatient polysomnography for suspected JOHN Qualifiers: Chronicity: acute on chronic Qualified Code(s): J96.21 - Acute and chronic respiratory failure with hypoxia (2) COPD (chronic obstructive pulmonary disease) Current Visit: Yes Status: Chronic Qualifiers: COPD type: unspecified COPD Qualified Code(s): J44.9 - Chronic obstructive pulmonary disease, unspecified (3) Tobacco abuse Current Visit: Yes Status: Acute Counseling on smoking cessation Nicotine Patch (4) Suspected sleep apnea Current Visit: Yes Status: Acute (5) Alcohol withdrawal Current Visit: Yes Status: Acute Continue CIWA protocol Qualifiers: Complication of substance-induced condition: uncomplicated Qualified Code(s ): F10.230 - Alcohol dependence with withdrawal, uncomplicated (6) Prerenal acute renal failure Current Visit: Yes Status: Acute Non-oliguric pre-renal renal failure with non-anion gap metabolic acidosis. Suspect that this is secondary to iatrogenic effects of antibiotic administration (vancomycin), diuresis, contrast dye. Plan: -Avoid nephrotoxic agents -Stop antibiotics -IVF hydration -Monitor labs (7) Hypovolemic shock Current Visit: Yes Status: Acute (8) Hypotension, iatrogenic Current Visit: Yes Status: Acute (9) Systolic heart failure Current Visit: Yes Status: Acute New diagnosis the patient during this visit. Echo on 08/17/2016 shows an LVEF of 65% with normal LV size and systolic function. 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 Patient has a history of alcohol abuse, opioid abuse, tobacco abuse with symptoms of withdrawal during this hospitalization. Blood pressure has stabilized, CIWA score has been 6 overnight, will continue CIWA protocol for symptoms. Pulmonary: Hypoxic respiratory failure in the setting of COPD without exacerbation and tobacco abuse, suspected JOHN. The patient he has a history of COPD, is not on any home medications for treatment other than albuterol inhaler. Patient also has a significant smoking history of one to 2 packs per day since age 13. On exam he has diffuse wheezing and rhonchi. This currently on Symbicort and DuoNeb inhalers therapy. Recommend continuing these medications. Patient has also been using BiPAP device when sleeping, suspect possible JOHN. Recommend nighttime oximetry study. Patient would also benefit from an outpatient polysomnography. Cardiovascular: Patient became hypotensive 6/5 after being on Precedex for withdrawal symptoms. Patient pressure has improved following fluid administration. He continues to remain off the dobutamine drip. Suspect that his hypotension was secondary to hypovolemic shock which appears to be stabilizing, will continue to monitor volume status and replete as necessary. GI: Nutrition: Patient is tolerating a renal diet. GI Prophylaxis: Not necessary with patient tolerating diet. Will lift fluid restrictions, allow free water intake Renal: Non-oliguric pre-renal renal failure with non-anion gap metabolic acidosis. Suspect that this is iatragenic secondary to diuresis with Lasix, vancomycin administration and contrast administration. SCr currently 3.56. Will continue to avoid nephrotoxic agents, stop antibiotics, hold lasix, continue hydration and reassess. Repeat BMP yesterday evening had an improved serum creatinine of 2.39. Today improved to 1.67, CO 19. Will stop fluids, AM labs. ID: The patient is currently afebrile, has had fevers on and off during admission. No obvious sources of infection. WBC stable. Previous blood culture no growth to date. Awaiting results of repeat blood culture, urine culture, sputum culture. There is question of whether the flushing versus rash on the patient secondary to a potential drug reaction, most likely due to a fourth-generation beta-lactam in the setting of penicillin allergy. Antibiotic coverage stopped. Heme/Onc: H/H stable. DVT Prophylaxis: Lovenox. Endorcine: Blood sugars are stable. Continue to monitor Skin: Patient has flushing versus rash on chest, arms, abdomen. Per family this is new onset admission, patient feels he may have some level of erythema at baseline. Suspect that this flushing is possibly a drug reaction, patient was on fourth-generation beta-lactam the setting of penicillin allergy. Antibiotics have been held, rash/itching is unchanged from yesterday. Will continue to monitor. Patient also has chronic venous stasis changes on his bilateral lower extremities, does not appear to be cellulitic in nature. Lines: all lines checked and no evidence of infections. Jenkins and peripheral IV in place Patient stable to go to a stepdown bed. CODE STATUS: FULL CODE Subjective Principal diagnosis: Hypoxic respiratory failure, copd, ben, hypovolemic shock Interval history: The patient was seen and examined the bedside. He denies any complaints overnight, is less agitated than yesterday and does not even discussed his Suboxone. He asked that he can get up and walk around today and states that he will "feel much better" if he does. He does complain about postnasal drainage and is concerned that he is developing a sinusitis. Objective PUL Vital signs: Last Vital Signs Temp 98.4 F 08/25/16 04:06 Pulse 71 08/25/16 06:00 Resp 16 08/25/16 06:00 BP 116/65 08/25/16 06:00 Pulse Ox 96 08/25/16 06:00 General appearance: no acute distress, alert Eyes: nonicteric ENT: oropharynx moist Neck: supple, no lymphadenopathy, no JVD Effort: normal Auscultation: bilateral: wheezes, rhonchi Cardiovascular: regular rate and rhythm Gastrointestinal: normoactive bowel sounds, soft, non-tender Integumentary: rash, erythema Extremities: no cyanosis, no edema, pulses normal Musculoskeletal: no deformities Gait: normal posture normal mental status, non-focal exam, pupils equal and round, motor strength normal and symmetric mood appropriate, affect normal Results - Laboratory Findings CBC and BMP: 08/25/16 07:02 08/25/16 07:02 ABG ABG pH 7.47 pH Units (7.32-7.45) H 08/21/16 06:35 ABG pCO2 40 mmHg (35-45) 08/21/16 06:35 ABG pO2 85 mmHg (85-104) 08/21/16 06:35 ABG O2 Saturation 97 % (95-98) 08/21/16 06:35 PT/INR, D-dimer PT 12.6 Seconds (9.4-12.1) H 08/24/16 17:18 Abnormal lab findings: Abnormal lab results RBC 3.49 M/mcL (4.19-5.50) L 08/24/16 14:26 Hgb 12.8 g/dL (12.9-16.9) L 08/24/16 14:26 Hct 37.3 % (37.5-50.1) L 08/24/16 14:26 MCV 106.9 fL (83.0-100.0) H 08/24/16 14:26 MCH 36.7 pg (28.0-33.3) H 08/24/16 14:26 Band Neutrophils % 20.0 % (0-4) H 08/23/16 03:42 Nucleated RBCs/100 WBC 0.4 /100 WBC (0) H 08/23/16 03:42 Reactive Lymphocytes Present (Not Present) A 08/24/16 14:26 Clumped Platelets Few (Not Present) A 08/21/16 04:40 Large Platelets Present (Not Present) A 08/23/16 03:42 PT 12.6 Seconds (9.4-12.1) H 08/24/16 17:18 APTT 24.7 Seconds (26.0-36.0) L 08/24/16 17:18 ABG pH 7.47 pH Units (7.32-7.45) H 08/21/16 06:35 ABG HCO3 29.1 mEQ/L (21-27) H 08/21/16 06:35 ABG Total CO2 30.3 mEq/L (20-26) H 08/21/16 06:35 ABG Base Excess 5.0 mEq/L (-2.0 to 3.0) H 08/21/16 06:35 Sodium 134 mEq/L (136-145) L 08/24/16 17:18 Carbon Dioxide 18 mEq/L (19-29) L 08/24/16 17:18 BUN 35 mg/dL (8-26) H 08/24/16 17:18 Creatinine 2.39 mg/dL (0.72-1.25) H 08/24/16 17:18 Est GFR ( Amer) 34 (> 60) L 08/24/16 17:18 Est GFR (Non-Af Amer) 28 (> 60) L 08/24/16 17:18 Glucose 100 mg/dL (70-99) H 08/24/16 17:18 POC Glucose 108 (58-89) H 08/23/16 23:22 Calcium 7.7 mg/dL (8.6-10.8) L 08/24/16 17:18 AST 37 Units/L (5-34) H 08/21/16 04:40 C-Reactive Protein 88 mg/L (Less than 5) H 08/21/16 04:40 Albumin 3.0 g/dL (3.5-5.0) L 08/21/16 04:40 Albumin/Globulin Ratio 0.9 (1.1-2.2) L 08/21/16 04:40 Lipase 6 Units/L (8-78) L 08/21/16 04:40 Ethyl Alcohol 80 mg/dL (0-10) H 08/16/16 17:14 - Diagnostic Findings Chest x-ray: report reviewed, image reviewed CT scan - chest: report reviewed, image reviewed - Clinical Findings Intake & Output: Intake & Output 08/24/16 08/24/16 08/25/16 15:59 23:59 07:59 Intake Total 1000 / 1000 Output Total 1425 / 1425 1300 / 1300 800 / 800 Balance -1425 / -1425 -1300 / -1300 200 / 200 Weight 146.8 kg Consult Discharge Plan - Plan Referrals: Cordova,Margarito Porter MD [Primary Care Provider] - <Jorge Alberto Heart - Last Filed: 08/25/16 12:31> Date of Encounter: 08/25/16 Objective PUL Vital signs: Last Vital Signs Temp 97.8 F 08/25/16 07:44 Pulse 71 08/25/16 06:00 Resp 16 08/25/16 06:00 BP 116/65 08/25/16 06:00 Pulse Ox 96 08/25/16 06:00 Results - Laboratory Findings CBC and BMP: 08/25/16 07:02 08/25/16 07:02 ABG ABG pH 7.47 pH Units (7.32-7.45) H 08/21/16 06:35 ABG pCO2 40 mmHg (35-45) 08/21/16 06:35 ABG pO2 85 mmHg (85-104) 08/21/16 06:35 ABG O2 Saturation 97 % (95-98) 08/21/16 06:35 PT/INR, D-dimer PT 12.6 Seconds (9.4-12.1) H 08/24/16 17:18 Abnormal lab findings: Abnormal lab results WBC 4.1 K/mcL (4.3-11.1) L 08/25/16 07:02 RBC 3.49 M/mcL (4.19-5.50) L 08/25/16 07:02 Hgb 12.5 g/dL (12.9-16.9) L 08/25/16 07:02 Hct 37.4 % (37.5-50.1) L 08/25/16 07:02 MCV 107.2 fL (83.0-100.0) H 08/25/16 07:02 MCH 35.8 pg (28.0-33.3) H 08/25/16 07:02 Band Neutrophils % 28.0 % (0-4) H 08/25/16 07:02 Myelocytes % 2.0 % (0) H 08/25/16 07:02 Nucleated RBCs/100 WBC 0.4 /100 WBC (0) H 08/23/16 03:42 Reactive Lymphocytes Present (Not Present) A 08/25/16 07:02 Clumped Platelets Few (Not Present) A 08/21/16 04:40 Large Platelets Present (Not Present) A 08/23/16 03:42 Macrocytosis Present (Not Present) A 08/25/16 07:02 PT 12.6 Seconds (9.4-12.1) H 08/24/16 17:18 APTT 24.7 Seconds (26.0-36.0) L 08/24/16 17:18 ABG pH 7.47 pH Units (7.32-7.45) H 08/21/16 06:35 ABG HCO3 29.1 mEQ/L (21-27) H 08/21/16 06:35 ABG Total CO2 30.3 mEq/L (20-26) H 08/21/16 06:35 ABG Base Excess 5.0 mEq/L (-2.0 to 3.0) H 08/21/16 06:35 Chloride 110 mEq/L (98-109) H 08/25/16 07:02 BUN 28 mg/dL (8-26) H 08/25/16 07:02 Creatinine 1.67 mg/dL (0.72-1.25) H 08/25/16 07:02 Est GFR ( Amer) 51 (> 60) L 08/25/16 07:02 Est GFR (Non-Af Amer) 42 (> 60) L 08/25/16 07:02 POC Glucose 108 (58-89) H 08/23/16 23:22 Calcium 7.6 mg/dL (8.6-10.8) L 08/25/16 07:02 AST 97 Units/L (5-34) H 08/25/16 07:02 ALT 61 Units/L (0-55) H 08/25/16 07:02 C-Reactive Protein 88 mg/L (Less than 5) H 08/21/16 04:40 Serum Total Protein 5.9 g/dL (6.0-8.3) L 08/25/16 07:02 Albumin 2.5 g/dL (3.5-5.0) L 08/25/16 07:02 Albumin/Globulin Ratio 0.7 (1.1-2.2) L 08/25/16 07:02 Lipase 6 Units/L (8-78) L 08/21/16 04:40 Ethyl Alcohol 80 mg/dL (0-10) H 08/16/16 17:14 - Clinical Findings Intake & Output: Intake & Output 08/24/16 08/25/16 08/25/16 23:59 07:59 15:59 Intake Total 1000 / 1000 240 / 240 Output Total 1300 / 1300 1000 / 1000 Balance -1300 / -1300 0 / 0 240 / 240 Weight 146.8 kg - Attending Attestation I examined this patient and my medical decision-making was reviewed with the [employer]SEMBLER/PA/Advanced Practice Nurse/Resident Physician. I agree with the documented findings, disposition and treatment plan as described except to the extent set forth below. Patient seen and examined at bedside Labs, radiology, chart personally reviewed. All lines examined without evidence of infection. Neuropsych: EtOH abuse monitoring for withdrawal much less agitated today cont CIWA. Pulm: Acute hypoxic respiratory failure s/t Pulm Edema minimal O2 requirements on NC wean to keep SpO2 >88-92%, COPD cont BDs, Suspect JOHN nocturnal PAP outpatient PSG. Cards: Hypotension s/t to hypovolemia resolved with fluids. Aim for net neutral volume status today. HFpEF suspected. FEN-GI: Continue diet as tolerated. . Renal: BEN much improved. This is prerenal azotemia s/t volume depletion. Cont to monitor UOP and replace lytes as tolerated. Nephro has signed off. ID: No clear evidence of infection ABx stopped yesterday. Cont to f/u cultures. Heme/Onc: Continue chemical DVT prophylaxis H&H and platelet count are stable Endo: Glucose monitored Integ/MSK: skin care per routine CODE: Full code Stable for transfer to [facility] for ongoing care
[2016-08-25 07:22] LABS: Albumin 2.5 g/dL (3.5-5.0); Albumin/Globulin Ratio 0.7 (1.1-2.2); Bilirubin,Total 0.3 mg/dL (0.2-1.2); Calcium 7.6 mg/dL (8.6-10.8); Globulin 3.4 g/dL (2.4-3.5); Magnesium 2.5 mg/dL (1.6-2.6); Potassium 4.2 mEq/L (3.5-4.5); Total Protein 5.9 g/dL (6.0-8.3)
[2016-08-25 07:48] LABS: Hematocrit 37.4 % (37.5-50.1); Hemoglobin 12.5 g/dL (12.9-16.9); Mean Corpuscular HGB Conc 33.4 g/dL (31.6-35.5); Mean Corpuscular Hemoglobin 35.8 pg (28.0-33.3); Mean Corpuscular Volume 107.2 fL (83.0-100.0); Mean Platelet Volume 9.6 fL (9.4-12.4); Platelet Count 172 K/mcL (140-400); Red Blood Count 3.49 M/mcL (4.19-5.50); Red Cell Distribution Width 14.2 % (11.5-14.5)
--- NOTE | 2016-08-25 08:32 | Event Note ---
Date of Encounter: 08/25/16 Time of Encounter: 08:31 The patient's renal function is markedly improved. Creatinine is 1.67. Urine output is excellent. Urine for eosinophils is negative. Nephrology will sign off. Please call again if needed.
[2016-08-25 08:37] LABS: Eosinophils # 0.1 K/mcL (0.0-0.6); Macrocytosis Present (Not Present); Monocytes # 0.2 K/mcL (0.0-1.3); Neutrophils # 2.8 K/mcL (1.6-8.9); Platelet Estimate Normal (Normal)
[2016-08-25 08:38] LABS: Reactive Lymphocytes Present (Not Present)
[2016-08-25] MEDS: Nicotine 21 MG PATCH.TD24 TD SCH (08:39)
[2016-08-25] MEDS: *HR* Enoxaparin 30 MG/0.3 ML SYRINGE SQ SCH (08:40)
[2016-08-25] MEDS: Folic Acid 1 MG TABLET PO SCH (08:40)
[2016-08-25] MEDS: Thiamine (B-1) 100 MG TABLET PO SCH (08:40)
[2016-08-25] MEDS: BuPROPion XL (24 HR) 150 MG TABLET PO SCH (08:40)
[2016-08-25] MEDS: Vitamin B Complex/Vit C/Vit E 1 EACH TABLET PO SCH (08:40)
[2016-08-25] MEDS: Lactobacillus 1 EACH CAP.SPRINK PO SCH (08:40)
[2016-08-25] MEDS: Budesonide/Formoterol 160/4.5 MDI IH SCH ×2 (10:48→20:34)
[2016-08-25] MEDS ORDERED: *HR* LORazepam 2 MG/ML VIAL IVP PRN ×3 (14:21)
[2016-08-25] MEDS ORDERED: Acetaminophen 325 MG TABLET PO PRN (14:21)
[2016-08-25] MEDS ORDERED: *HR* OxyCODONE/APAP 5/325 TABLET PO PRN (14:21)
[2016-08-25] MEDS ORDERED: Naloxone 0.4 MG/ML INJ IVP PRN (14:21)
[2016-08-25] MEDS ORDERED: Ondansetron 4 MG/2 ML VIAL IVP PRN (14:21)
[2016-08-26] MEDS: Lactobacillus 1 EACH CAP.SPRINK PO SCH ×3 (00:31→21:19)
[2016-08-26] MEDS: Ipratropium/Albuterol Neb 3 ML IH SCH ×4 (03:06→22:40)
[2016-08-26 05:50] LABS: Basophils % 0.5 %; Eosinophils # 0.3 K/mcL (0.0-0.6); Eosinophils % 7.8 %; Hematocrit 38.2 % (37.5-50.1); Hemoglobin 12.8 g/dL (12.9-16.9); Immature Granulocytes % 1.7 % (0-4); Lymphocytes # 1.8 K/mcL (0.6-4.6); Lymphocytes % 42.9 %; Mean Corpuscular HGB Conc 33.5 g/dL (31.6-35.5); Mean Corpuscular Hemoglobin 35.9 pg (28.0-33.3); Mean Platelet Volume 9.8 fL (9.4-12.4); Monocytes # 0.3 K/mcL (0.0-1.3); Monocytes % 8.3 %; Neutrophils # 1.6 K/mcL (1.6-8.9); Platelet Count 178 K/mcL (140-400); Red Blood Count 3.57 M/mcL (4.19-5.50); Segmented Neutrophils % 38.8 %
[2016-08-26] MEDS: *HR* Enoxaparin 40 MG/0.4 ML SYRINGE SQ SCH (05:54)
[2016-08-26 06:06] LABS: BUN/Creatinine Ratio 18 (6-26); Blood Urea Nitrogen 21 mg/dL (8-26); Carbon Dioxide 20 mEq/L (19-29); Chloride 108 mEq/L (98-109); Potassium 3.9 mEq/L (3.5-4.5); Sodium 135 mEq/L (136-145); eGFR For African Americans > 60 (> 60)
[2016-08-26 06:07] LABS: Calcium 8.1 mg/dL (8.6-10.8); Glucose 90 mg/dL (70-99); Osmolality,Calculated 283 (280-300); eGFR For Non-African Americans > 60 (> 60)
[2016-08-26 06:23] LABS: Platelet Estimate Decreased (Normal)
[2016-08-26 06:24] LABS: Reactive Lymphocytes Present (Not Present)
[2016-08-26] MEDS: Thiamine (B-1) 100 MG TABLET PO SCH (08:33)
[2016-08-26] MEDS: BuPROPion XL (24 HR) 150 MG TABLET PO SCH (08:34)
[2016-08-26] MEDS: Folic Acid 1 MG TABLET PO SCH (08:34)
[2016-08-26] MEDS: Nicotine 21 MG PATCH.TD24 TD SCH (08:36)
[2016-08-26] MEDS: Vitamin B Complex/Vit C/Vit E 1 EACH TABLET PO SCH (08:39)
[2016-08-26] MEDS: Budesonide/Formoterol 160/4.5 MDI IH SCH ×2 (11:03→22:40)
--- NOTE | 2016-08-26 13:50 | Discharge Summary ---
Date of Encounter: 08/26/16 Time of Encounter: 10:15 - Discharge Diagnosis (1) Acute on chronic diastolic (congestive) heart failure Priority: Primary Status: Acute (2) Respiratory failure with hypoxia Priority: Secondary Status: Resolved Qualifiers: Chronicity: acute on chronic Qualified Code(s): J96.21 - Acute and chronic respiratory failure with hypoxia (3) Alcohol abuse Priority: Secondary Status: Chronic (4) Alcohol withdrawal Priority: Secondary Status: Acute Qualifiers: Complication of substance-induced condition: uncomplicated Qualified Code(s ): F10.230 - Alcohol dependence with withdrawal, uncomplicated (5) COPD (chronic obstructive pulmonary disease) Priority: Secondary Status: Chronic Qualifiers: COPD type: unspecified COPD Qualified Code(s): J44.9 - Chronic obstructive pulmonary disease, unspecified (6) Hypotension, iatrogenic Priority: Secondary Status: Resolved (7) Hypovolemic shock Priority: Secondary Status: Resolved (8) Macrocytosis Priority: Secondary Status: Chronic (9) Morbid obesity with BMI of 45.0-49.9, adult Priority: Secondary Status: Chronic (10) Prerenal acute renal failure Priority: Secondary Status: Resolved (11) Suspected sleep apnea Priority: Secondary Status: Acute (12) Tobacco abuse Priority: Secondary Status: Acute (13) Cellulitis Priority: Secondary Status: Ruled-out Qualifiers: Site of cellulitis: extremity Site of cellulitis of extremity: lower extremity Laterality: unspecified laterality Qualified Code(s): L03.119 - Cellulitis of unspecified part of limb - Discharge Medications Prescriptions: Budesonide/Formoterol 160/4.5 [Symbicort 160/4.5] 2 puff IH BIDR #1 inhaler Furosemide [Lasix] 40 mg PO DAILY #60 tab Home Medications: Albuterol Sulfate [Proair Respiclick] 2 puff IH Q4H PRN 08/16/16 [History] Buprenorphine HCl/Naloxone HCl [Buprenorphin-Naloxon 8-2 mg Sl] 1.25 tab SL DAILY 08/16/16 [History] Bupropion HCl [Wellbutrin Xl] 300 mg PO QAM 08/16/16 [History] Lisinopril [Zestril] 10 mg PO DAILY 08/16/16 [History] Loratadine [Allergy Relief] 10 mg PO DAILY 08/16/16 [History] Budesonide/Formoterol 160/4.5 [Symbicort 160/4.5] 2 puff IH BIDR #1 inhaler 11/04 [Rx] Furosemide [Lasix] 40 mg PO DAILY #60 tab 08/26/16 [Rx] Allergies/Adverse Reactions: Allergies Penicillins Allergy (Verified 08/16/16 14:21) Blister Date of admission: 08/16/16 17:15 Primary care physician: Margarito Cordova MD Consults: 08/17/16 15:17 Consult to Nurse Navigator [CONS] Routine Comment: CHF teaching 08/19/16 10:33 Consult to Invasive Line Access Team [CONS] Routine Reason for Consult: powerglide needed for IV access Line Type: EPIV PICC line indications: Limited vascular access 08/19/16 13:52 Consult to Boat Pilot [CONS] Routine Reason for SW Consult: resources for alcohol abuse. 08/24/16 08:14 Consult to Nephrology [CONS] Routine Consulting Provider: [facility] Reason for Consult: BEN Call Completed: No 08/24/16 13:53 Consult to Critical Care [CONS] Routine Consulting Provider: [facility] [place] Reason for Consult: Probable septic shock, worsening BEN, withdrawal Call Completed: No 08/26/16 13:16 Consult to Occupational Therapy [CONS] Routine Comment: Evaluate, develop and implement POC Reason for Consult: Instability Consult to Physical Therapy [CONS] Routine Comment: Evaluate, develop and implement POC Reason for Consult: Instability Discharging clinician: Juan M Nguyen Anticipated date of discharge: 08/27/16 - Patient Status Disposition: Home, Self-Care Condition: Good Functional capacity at discharge: uses cane/walker Overall status at discharge: patient is progressing back to baseline - Discharge Instructions Instructions: Heart Failure (DC), Chronic Obstructive Pulmonary Disease (DC) Follow Up With: Margarito Cordova MD [Primary Care Provider] - 09/02/16 10:30 am Jorge Alberto Heart MD [Partnered Physician] - 09/08/16 9:15 am (please follow up as schedule...) Additional Instructions: Please follow up with pulmonology in 1-2 weeks for possible COPD and also to obtain a sleep study Please follow up with cardiology in 2-3 weeks for follow-up on diastolic congestive heart failure - Diet and Activity Activity: increase activity as tolerated, return to work once cleared by your PCP/specialist Diet: low fat, low cholesterol, low salt diet Hospital course: Mr. Berkowitz is a 61 year old male patient with a history of hypertension and pedal edema presented to the ER with complaints of shortness of breath and progressive swelling in his legs. He was diagnosed with possible acute congestive heart failure and was treated with IV Lasix. He was also treated with antibiotics for possible cellulitis in his bilateral lower extremities due to fever and some erythema in this region. The patient's kidney function worsened with the use of IV Lasix and he also developed symptoms of alcohol withdrawal. He was started on treatment for alcohol withdrawal with benzodiazepines and then with IV Precedex. Antibiotics were discontinued as the patient's erythema in his lower extremities appear to be more related to stasis dermatitis. The patient's Lasix was discontinued due to his acute kidney injury. His lisinopril was also held. The patient had become hypotensive most likely due to use of an significant diuresis and he did require pressor support with dopamine. He was stabilized for his medical conditions in the ICU and then transferred back to the floor last evening. He is now doing much better, is awake alert and oriented. He is not requiring O2 supplementation. His renal function has also normalized. At this time, patient will be discharged on 20 mg Lasix and lisinopril as he continues to have significant pedal edema. His 2-D echocardiogram showed a normal systolic function with EF of 65% with indeterminate diastolic function. He also may have underlying obstructive sleep apnea, and would benefit from sleep study as outpatient. He has a history of chronic smoking and may have underlying COPD. He will be referred to pulmonology for further evaluation. He has been counseled about alcohol and tobacco cessation. Patient was evaluated by physical therapy and recommended ECF placement. Patient will be discharged once he has that arranged. - Time Spent with Patient Total time spent providing and/or coordinating discharge services: Greater than 30 minutes (40 min) - Constitutional Vitals: Temp Pulse Resp BP Pulse Ox 98.0 F 84 16 122/79 97 08/26/16 11:13 08/26/16 11:13 08/26/16 11:13 08/26/16 11:13 08/26/16 12:45 General appearance: Present: A&O X 3, morbidly obese, no acute distress, answers questions appropriately - Neck Neck exam general surgery: Present: supple, trachea midline. Absent: lymphadenopathy - Respiratory Respiratory exam: Present: CTAB, prolonged expiratory phase, wheezes. Absent: accessory muscle use, rales, rhonchi - Cardiovascular Cardiovascular exam: Present: RRR, +S1, +S2. Absent: diastolic murmur, gallop, rubs, systolic murmur - GI/Abdominal GI/Abdominal exam: Present: normal bowel sounds, soft, no peritoneal signs. Absent: distended, tenderness - Extremities Exam Extremities exam: Present: pedal edema (Nonpitting bilateral pedal edema with erythema and stasis dermatitis changes), warm, radial pulses palpable and symetrical. Absent: calf tenderness, cyanotic - Neurological Exam Neurological exam: Present: alert, CN II-XII intact, oriented X3, no focal deficits. Absent: facial droop, speech deficit - Attending Attestation This document has been at least partially created by [employer] voice recognition technology by Dr. Nguyen. Errors in grammar, wording or other phrases may exist. If errors are found after the documentation is signed, they will be addressed individually in the addendum section of this document when appropriate.
--- NOTE | 2016-08-26 15:31 | Physician Discharge Referral ---
ExtendedCare Referral Info Institutional Level of Care: Skilled - Diagnosis (1) Acute on chronic diastolic (congestive) heart failure Priority: Primary Status: Acute (2) Respiratory failure with hypoxia Priority: Secondary Status: Acute (3) Alcohol abuse Priority: Secondary Status: Chronic (4) Alcohol withdrawal Priority: Secondary Status: Acute (5) COPD (chronic obstructive pulmonary disease) Priority: Secondary Status: Chronic (6) Hypotension, iatrogenic Priority: Secondary Status: Acute (7) Hypovolemic shock Priority: Secondary Status: Acute (8) Macrocytosis Priority: Secondary Status: Chronic (9) Morbid obesity with BMI of 45.0-49.9, adult Priority: Secondary Status: Chronic (10) Prerenal acute renal failure Priority: Secondary Status: Acute (11) Suspected sleep apnea Priority: Secondary Status: Acute (12) Tobacco abuse Priority: Secondary Status: Acute (13) Cellulitis Priority: Secondary Status: Ruled-out Prognosis: Good Aware of Diagnosis: Patient, Family Aware of Prognosis: Patient, Family - Transfer Medications Prescriptions: Budesonide/Formoterol 160/4.5 [Symbicort 160/4.5] 2 puff IH BIDR #1 inhaler Furosemide [Lasix] 40 mg PO DAILY #60 tab Home Medications: Albuterol Sulfate [Proair Respiclick] 2 puff IH Q4H PRN 08/16/16 [History] Buprenorphine HCl/Naloxone HCl [Buprenorphin-Naloxon 8-2 mg Sl] 1.25 tab SL DAILY 08/16/16 [History] Bupropion HCl [Wellbutrin Xl] 300 mg PO QAM 08/16/16 [History] Lisinopril [Zestril] 10 mg PO DAILY 08/16/16 [History] Loratadine [Allergy Relief] 10 mg PO DAILY 08/16/16 [History] Budesonide/Formoterol 160/4.5 [Symbicort 160/4.5] 2 puff IH BIDR #1 inhaler 11/04 [Rx] Furosemide [Lasix] 40 mg PO DAILY #60 tab 08/26/16 [Rx] Allergies/Adverse Reactions: Allergies Penicillins Allergy (Verified 08/16/16 14:21) Blister - Respiratory Orders Smoking Cessation: Smoking cessation has been advised. For more information, call the [place] Tobacco Quit Line at 0-165-ZNKB-NOW. - Ancillary Orders May consult with Dentist, Contracts Law Professor, Employee Relations Specialist PRN - Advance Directives Code Status: Full Code - Mobility Orders Ambulate (with walker) - Rehabiliation Orders Rehab Potential: Fair Rehab Orders: Evaluation for Physical Therapy, Evaluation for Occupational Therapy - Diet Orders Cardiac CERTIFICATION: I certify that the transfer of the above named patient to an Extended Care Facility is necessary for the continuing treatment of the diagnosis listed. The above information is true and accurate reflection of patient's current condition. Confidential - Redisclosure prohibited without a patient's written consent.
[2016-08-26] MEDS ORDERED: BUPRENORPHINE HCL SL SCH (17:00)
[2016-08-26] MEDS ORDERED: NALOXONE HCL SL SCH (17:00)
[2016-08-26] MEDS: NALOXONE HCL SL SCH (21:25)
[2016-08-26] MEDS: BUPRENORPHINE HCL SL SCH (21:25)
[2016-08-27] MEDS: Ipratropium/Albuterol Neb 3 ML IH SCH ×2 (04:24→11:08)
[2016-08-27] MEDS: *HR* Enoxaparin 40 MG/0.4 ML SYRINGE SQ SCH (05:35)
[2016-08-27 07:46] VITALS: BP 114/72
[2016-08-27] MEDS: Lactobacillus 1 EACH CAP.SPRINK PO SCH (08:35)
[2016-08-27] MEDS: Folic Acid 1 MG TABLET PO SCH (08:35)
[2016-08-27] MEDS: Vitamin B Complex/Vit C/Vit E 1 EACH TABLET PO SCH (08:35)
[2016-08-27] MEDS: Thiamine (B-1) 100 MG TABLET PO SCH (08:36)
[2016-08-27] MEDS: BuPROPion XL (24 HR) 150 MG TABLET PO SCH (08:36)
[2016-08-27] MEDS: NALOXONE HCL SL SCH (08:36)
[2016-08-27] MEDS: BUPRENORPHINE HCL SL SCH (08:36)
[2016-08-27] MEDS: Nicotine 21 MG PATCH.TD24 TD SCH (08:36)
[2016-08-27] MEDS: Budesonide/Formoterol 160/4.5 MDI IH SCH (11:08)
--- NOTE | 2016-08-27 13:59 | Internal Med Progress Note ---
Date of Encounter: 08/27/16 Time of Encounter: 11:30 - Assessment and plan (1) Acute on chronic diastolic (congestive) heart failure Status: Acute Assessment and plan: Continues to improve. Resume Lasix at discharge. Follow up outpatient with cardiology and PCP. Patient will be discharged home today. Discharge was held yesterday pending placement. However, patient wishes to go home with outpatient physical therapy. (2) Respiratory failure with hypoxia Status: Resolved Assessment and plan: This has now resolved. Patient is now saturating well on room air Qualifiers: Chronicity: acute on chronic Qualified Code(s): J96.21 - Acute and chronic respiratory failure with hypoxia (3) Alcohol abuse Status: Chronic (4) Alcohol withdrawal Status: Acute Qualifiers: Complication of substance-induced condition: uncomplicated Qualified Code(s ): F10.230 - Alcohol dependence with withdrawal, uncomplicated (5) COPD (chronic obstructive pulmonary disease) Status: Chronic Assessment and plan: Follow-up outpatient with pulmonology Qualifiers: COPD type: unspecified COPD Qualified Code(s): J44.9 - Chronic obstructive pulmonary disease, unspecified (6) Hypotension, iatrogenic Status: Resolved (7) Hypovolemic shock Status: Resolved (8) Macrocytosis Status: Chronic (9) Morbid obesity with BMI of 45.0-49.9, adult Status: Chronic (10) Prerenal acute renal failure Status: Resolved (11) Suspected sleep apnea Status: Acute (12) Tobacco abuse Status: Acute (13) Cellulitis Status: Ruled-out Qualifiers: Site of cellulitis: extremity Site of cellulitis of extremity: lower extremity Laterality: unspecified laterality Qualified Code(s): L03.119 - Cellulitis of unspecified part of limb - Subjective Interval history: Patient feels better today. He is able to ambulate better and wishes to go home instead of rehabilitation with outpatient physical therapy. Denies any dizziness or lightheadedness. - Constitutional Vitals: Temp Pulse Resp BP Pulse Ox 97.4 F L 67 18 114/72 93 08/27/16 07:44 08/27/16 07:44 08/27/16 11:08 08/27/16 07:44 08/27/16 11:08 General appearance: Present: A&O X 3, morbidly obese, no acute distress, answers questions appropriately - Respiratory Respiratory exam: Present: prolonged expiratory phase. Absent: accessory muscle use, rales, rhonchi, wheezes - GI/Abdominal GI/Abdominal exam: Present: normal bowel sounds, soft, no peritoneal signs. Absent: distended, tenderness - Extremities Exam Extremities exam: Present: pedal edema (Bilateral nonpitting pedal edema), warm , radial pulses palpable and symetrical. Absent: calf tenderness, cyanotic Additional comments: With bilateral lower extremities stasis dermatitis Internal Medicine: Result - Labs CBC & Chem 7: 08/26/16 05:07 08/26/16 05:07 - ABG Interpretation ABG results: ABG ABG pH 7.47 pH Units (7.32-7.45) H 08/21/16 06:35 ABG pCO2 40 mmHg (35-45) 08/21/16 06:35 ABG pO2 85 mmHg (85-104) 08/21/16 06:35 ABG O2 Saturation 97 % (95-98) 08/21/16 06:35 PT/INR, D-dimer PT 12.6 Seconds (9.4-12.1) H 08/24/16 17:18 - VTE Documentation of Mechanical Device: Intermittent pneumatic compression device Consult Discharge Plan - Plan Instructions: Heart Failure (DC), Chronic Obstructive Pulmonary Disease (DC) Additional Instructions: Please follow up with pulmonology in 1-2 weeks for possible COPD and also to obtain a sleep study Please follow up with cardiology in 2-3 weeks for follow-up on diastolic congestive heart failure Referrals: Margarito Cordova MD [Primary Care Provider] - 09/02/16 10:30 am Jorge Alberto Heart MD [Partnered Physician] - 09/08/16 9:15 am (please follow up as schedule...) Prescriptions: Budesonide/Formoterol 160/4.5 [Symbicort 160/4.5] 2 puff IH BIDR #1 inhaler Furosemide [Lasix] 40 mg PO DAILY #60 tab - Attending Attestation This document has been at least partially created by [employer] recognition technology by Dr. Nguyen. Errors in grammar, wording or other phrases may exist. If errors are found after the documentation is signed, they will be addressed individually in the addendum section of this document when appropriate.
== END 2016-08-27 12:14 | disposition home or self-care (01) | DRG 291 ==
LOC: 3BNU 14:19 → EMEROO 14:19 → 3BNU 17:12 → SUATTDRO 17:15 → 2NNU 08-22 15:34 → ICNU 08-23 23:44 → 2ANU 08-25 20:07
PROVIDERS: ADMIT Internal Medicine; ATTEND Nurse Practitioner Family

== ENCOUNTER 2018-02-15 20:23 | Inpatient (IN) ==
[2018-02-15 21:13] LABS: Basophils % 0.4 %; Eosinophils % 0.4 %; Hematocrit 36.5 % (37.5-50.1); Hemoglobin 12.4 g/dL (12.9-16.9); Immature Granulocytes % 1.7 % (0-4); Lymphocytes # 0.8 K/mcL (0.6-4.6); Lymphocytes % 15.8 %; Mean Corpuscular Hemoglobin 39.9 pg (28.0-33.3); Mean Corpuscular Volume 117.4 fL (83.0-100.0); Mean Platelet Volume 9.8 fL (9.4-12.4); Monocytes # 0.4 K/mcL (0.0-1.3); Monocytes % 8.5 %; Neutrophils # 3.5 K/mcL (1.6-8.9); Nucleated Red Blood Cells 0.8 /100 WBC (0); Platelet Count 119 K/mcL (140-400); Red Blood Count 3.11 M/mcL (4.19-5.50); Red Cell Distribution Width 14.8 % (11.5-14.5); Segmented Neutrophils % 73.2 %
[2018-02-15 21:14] LABS: Macrocytosis Present (Not Present)
--- NOTE | 2018-02-15 21:30 | Emergency Department Note ---
Disposition Clinical Impression: Hyponatremia, Alcoholism, Peripheral edema, Elevated serum creatinine, SOB (shortness of breath) Disposition: Admitted As Inpatient Condition: Fair Referrals: Cordova,Margarito Porter MD [Primary Care Provider] - Forms: ED Satisfaction Letter, Work/School Release Time of Disposition: 23:02 General Adult HPI - General Chief complaint: ED General Medical Stated complaint: swollen legs and feet see nurse note Time Seen by Provider: 02/15/18 20:32 Source: patient Mode of arrival: ambulatory Limitations: no limitations Nursing Notes Reviewed: Yes Vital Signs Reviewed: Yes - History of Present Illness HPI Narrative: 62 yo male presented from home with worsening leg swelling and shortness of breath. He was seen on Tuesday for these complaints was told to come to the ER, but did not come in until today he says he had things at home to deal with. He states that the leg swelling has gotten her aggressively worse over the past 5 weeks. He has a history of congestive heart failure and alcoholism. He also complains of discharge from both eyes and thinks he has pink eye. He has a history of COPD as well. Not currently taking any diuretics. He has not noticed decreased urination. His fever, chest pain, abdominal pain, nausea, vomiting. He has not been around anyone sick recently, but notes a lot of sputum when he coughs. Pain Scale: 2 - Related Data Home Medications Medication Instructions Recorded Confirmed Albuterol Sulfate [Proair 2 puff IH Q4H PRN 08/16/16 08/16/16 Respiclick] Buprenorphine HCl/Naloxone HCl 1.25 tab SL DAILY 08/16/16 08/16/16 [Buprenorphin-Naloxon 8-2 mg Sl] Bupropion HCl [Wellbutrin Xl] 300 mg PO QAM 08/16/16 08/16/16 Lisinopril [Zestril] 10 mg PO DAILY 08/16/16 08/16/16 Loratadine [Allergy Relief] 10 mg PO DAILY 08/16/16 08/16/16 Previous Rx's Medication Instructions Recorded Budesonide/Formoterol 160/4.5 2 puff IH BIDR #1 inhaler 08/26/16 [Symbicort 160/4.5] Furosemide [Lasix] 40 mg PO DAILY #60 tab 08/26/16 Fluconazole [Diflucan] 150 mg PO Q72H #2 tab 10/14/16 Magic Mouthwash 10 ml PO Q4-6H PRN #200 ml 10/14/16 Nystatin [Nystatin Suspension] 500,000 units PO QID #200 ml 10/14/16 Allergies Allergy/AdvReac Type Severity Reaction Status Date / Time Penicillins Allergy Blister Verified 08/16/16 14:21 Sulfa (Sulfonamide Allergy See Verified 10/14/16 10:51 Antibiotics) Comments Constitutional: Denies: fever, chills, weakness Eyes: Reports: eye discharge. Denies: vision change Cardiovascular: Reports: dyspnea on exertion, orthopnea, edema. Denies: chest pain, palpitations, syncope Respiratory: Reports: cough, dyspnea. Denies: wheezes, hemoptysis Gastrointestinal: Denies: abdominal pain, nausea, vomiting, diarrhea Musculoskeletal: Denies: back pain, neck pain Integumentary: Denies: rash Neurological: Denies: headache, weakness, numbness Psychiatric: Denies: anxiety Endocrine: Reports: fatigue Hematological/Lymphatic: Denies: easy bleeding Past Medical History - Past Medical History Medical history: Reports: CHF, COPD, hyperlipidemia, hypertension, other Psychiatric history: Reports: no psych history - Social History Smoking Status: Current every day smoker Smokeless Tobacco Status: No Alcohol use: Reports: occasionally Drug use: Reports: none Physical Exam - General Limitations: no limitations General appearance: alert, in no apparent distress - Head Head exam: atraumatic, normocephalic - Eye Eye exam: Present: PERRL, EOMI, other (Bilateral yellowish discharge from eyes) - ENT ENT exam: normal exam, mucous membranes moist - Neck Neck exam: Present: normal inspection. Absent: tenderness, lymphadenopathy - Chest Chest inspection: Present: normal inspection, symmetric chest wall rise. Absent: tenderness - Respiratory Respiratory exam: Present: wheezes - Cardiovascular Cardiovascular exam: Present: normal rhythm, tachycardia - Abdominal Exam Abdominal exam: Present: soft, Non-Tender, distention. Absent: guarding, rebound, rigidity - Extremities Exam Extremities exam: Present: tenderness, pedal edema, calf tenderness, other (4+ pitting edema bilateral lower extremities to tibial tuberosity) - Neurological Exam Neurological exam: Present: alert, oriented X3 - Psychiatric Psychiatric exam: Present: normal affect - Skin Skin exam: Present: warm, dry, intact Course Vital Signs Temperature 98.2 F 02/15/18 20:24 Pulse Rate 107 02/15/18 20:24 Respiratory Rate 22 02/15/18 20:24 Blood Pressure 94/55 02/15/18 20:24 O2 Sat by Pulse Oximetry 100 02/15/18 20:24 Temperature 98.2 F 02/15/18 20:40 Pulse Rate 110 02/15/18 22:33 Respiratory Rate 18 02/15/18 22:33 Blood Pressure 101/65 02/15/18 22:33 O2 Sat by Pulse Oximetry 97 02/15/18 22:33 Oxygen Delivery Oxygen Delivery Room Air Medical Decision Making - MDM Narrative Medical decision making narrative: This patient is likely heart failure exacerbation, will order blood work, EKG and chest x-ray. The patient's creatinine we will likely give a dose of Lasix. 2214 - patient's labs have revealed a significant hyponatremia of 124 and hypocalcemia of 8 with BEN. We will check mag and phos, LFTs, urine sodium and osm. Awaiting chest x-ray. 2299 - CXR did not show evidence of pulmonary edema. Will hydrate the pt with 1L NS and give a banana bag. Dr. Aceves has accepted the pt. - Medical Records Medical records reviewed: Yes I reviewed the patient's medical records. - Lab Data Lab results reviewed: Yes I reviewed the patient's lab results. Result diagrams: 02/15/18 21:04 02/15/18 21:04 Lab Results 02/15/18 02/15/18 02/15/18 Range/Units 21:04 21:04 21:04 WBC 4.8 (4.3-11.1) K/mcL RBC 3.11 L (4.19-5.50) M/mcL Hgb 12.4 L (12.9-16.9) g/dL Hct 36.5 L (37.5-50.1) % MCV 117.4 H (83.0-100.0) fL MCH 39.9 H (28.0-33.3) pg MCHC 34.0 (31.6-35.5) g/dL RDW 14.8 H (11.5-14.5) % Plt Count 119 L (140-400) K/mcL MPV 9.8 (9.4-12.4) fL Immature Gran % 1.7 (0-4) % Seg Neutrophils % 73.2 % Lymphocytes % 15.8 % Monocytes % 8.5 % Eosinophils % 0.4 % Basophils % 0.4 % Neutrophils # 3.5 (1.6-8.9) K/mcL Lymphocytes # 0.8 (0.6-4.6) K/mcL Monocytes # 0.4 (0.0-1.3) K/mcL Eosinophils # 0.0 (0.0-0.6) K/mcL Basophils # 0.0 (0.0-0.2) K/mcL Nucleated RBCs/100 WBC 0.8 H (0) /100 WBC Macrocytosis Present A (Not Present) Sodium 124 L (136-145) mEq/L Potassium 3.9 (3.5-5.1) mEq/L Chloride 90 L (98-107) mEq/L Carbon Dioxide 8 L* (23-29) mEq/L BUN 13 (8-23) mg/dL Creatinine 1.66 H (0.70-1.30) mg/dL Est GFR ( Amer) 51 L (> 60) Est GFR (Non-Af Amer) 42 L (> 60) BUN/Creatinine Ratio 8 (6-26) Glucose 75 (70-105) mg/dL Calculated Osmolality 257 L (280-300) Calcium 8.0 L (8.6-10.3) mg/dL Troponin I < 0.03 (< 0.04) ng/mL B-Natriuretic Peptide 22 (Less than 100) pg/mL - Radiology Data Radiology results reviewed: Yes I reviewed the patient's radiology results. - EKG Data EKG #1 EKG attestation: Yes I reviewed and interpreted this EKG. EKG results narrative: EKG done at 21:06 on 02/15/2018 Heart rate 104 bpm, OK interval 181, QRS duration 116, QT 375, QTC 494 Sinus tachycardia with low voltage in the precordial leads. Intraventricular conduction delay. No evidence of ST segment elevation or depression. No signs of acute ischemia. No significant changes from EKG done on 08/21/2016.
[2018-02-15 21:35] LABS: Troponin I < 0.03 ng/mL (< 0.04)
[2018-02-15 21:57] LABS: BUN/Creatinine Ratio 8 (6-26); Blood Urea Nitrogen 13 mg/dL (8-23); Carbon Dioxide 8 mEq/L (23-29); Chloride 90 mEq/L (98-107); Glucose 75 mg/dL (70-105); Osmolality,Calculated 257 (280-300); Potassium 3.9 mEq/L (3.5-5.1); Sodium 124 mEq/L (136-145); eGFR For Non-African Americans 42 (> 60)
[2018-02-15] MEDS ORDERED: Ciprofloxacin HCL Soln 5 ML BOTTLE BOTH EYES ONE (22:17)
[2018-02-15] MEDS ORDERED: 0.9 % Sodium Chloride 1,000 ML IVC ONE (22:21)
[2018-02-15] MEDS ORDERED: MVI, adult with vitamin K 10 ML in 0.9 % Sodium Chloride 1,000 ML IVC ONE (22:22)
--- NOTE | 2018-02-15 22:40 | Emergency Department Note ---
Disposition Clinical Impression: Hyponatremia, Alcoholism, Peripheral edema, Elevated serum creatinine, SOB (shortness of breath) Disposition: Admitted As Inpatient Forms: ED Satisfaction Letter, Work/School Release General Adult HPI - General Chief complaint: ED General Medical Stated complaint: swollen legs and feet see nurse note Time Seen by Provider: 02/15/18 20:32 Source: patient Mode of arrival: ambulatory Limitations: no limitations - History of Present Illness Pain Scale: 2 - Related Data Home Medications Medication Instructions Recorded Confirmed Albuterol Sulfate [Proair 2 puff IH Q4H PRN 08/16/16 08/16/16 Respiclick] Buprenorphine HCl/Naloxone HCl 1.25 tab SL DAILY 08/16/16 08/16/16 [Buprenorphin-Naloxon 8-2 mg Sl] Bupropion HCl [Wellbutrin Xl] 300 mg PO QAM 08/16/16 08/16/16 Lisinopril [Zestril] 10 mg PO DAILY 08/16/16 08/16/16 Loratadine [Allergy Relief] 10 mg PO DAILY 08/16/16 08/16/16 Previous Rx's Medication Instructions Recorded Budesonide/Formoterol 160/4.5 2 puff IH BIDR #1 inhaler 08/26/16 [Symbicort 160/4.5] Furosemide [Lasix] 40 mg PO DAILY #60 tab 08/26/16 Fluconazole [Diflucan] 150 mg PO Q72H #2 tab 10/14/16 Magic Mouthwash 10 ml PO Q4-6H PRN #200 ml 10/14/16 Nystatin [Nystatin Suspension] 500,000 units PO QID #200 ml 10/14/16 Allergies Allergy/AdvReac Type Severity Reaction Status Date / Time Penicillins Allergy Blister Verified 08/16/16 14:21 Sulfa (Sulfonamide Allergy See Verified 10/14/16 10:51 Antibiotics) Comments Constitutional: Denies: fever, chills, weakness Eyes: Reports: eye discharge. Denies: vision change Cardiovascular: Reports: dyspnea on exertion, orthopnea, edema. Denies: chest pain, palpitations, syncope Respiratory: Reports: cough, dyspnea. Denies: wheezes, hemoptysis Gastrointestinal: Denies: abdominal pain, nausea, vomiting, diarrhea Musculoskeletal: Denies: back pain, neck pain Integumentary: Denies: rash Neurological: Denies: headache, weakness, numbness Psychiatric: Denies: anxiety Endocrine: Reports: fatigue Hematological/Lymphatic: Denies: easy bleeding Past Medical History - Past Medical History Medical history: Reports: CHF, COPD, hyperlipidemia, hypertension, other Psychiatric history: Reports: no psych history - Social History Smoking Status: Current every day smoker Smokeless Tobacco Status: No Alcohol use: Reports: occasionally Drug use: Reports: none Physical Exam - General Limitations: no limitations General appearance: alert, in no apparent distress Course Vital Signs Temperature 98.2 F 02/15/18 20:24 Pulse Rate 107 02/15/18 20:24 Respiratory Rate 22 02/15/18 20:24 Blood Pressure 94/55 02/15/18 20:24 O2 Sat by Pulse Oximetry 100 02/15/18 20:24 Temperature 98.2 F 02/15/18 20:40 Pulse Rate 110 02/15/18 22:33 Respiratory Rate 18 02/15/18 22:33 Blood Pressure 101/65 02/15/18 22:33 O2 Sat by Pulse Oximetry 97 02/15/18 22:33 Oxygen Delivery Oxygen Delivery Room Air Medical Decision Making - Lab Data Result diagrams: 02/15/18 21:04 02/15/18 21:04 Lab Results 02/15/18 02/15/18 02/15/18 Range/Units 21:04 21:04 21:04 WBC 4.8 (4.3-11.1) K/mcL RBC 3.11 L (4.19-5.50) M/mcL Hgb 12.4 L (12.9-16.9) g/dL Hct 36.5 L (37.5-50.1) % MCV 117.4 H (83.0-100.0) fL MCH 39.9 H (28.0-33.3) pg MCHC 34.0 (31.6-35.5) g/dL RDW 14.8 H (11.5-14.5) % Plt Count 119 L (140-400) K/mcL MPV 9.8 (9.4-12.4) fL Immature Gran % 1.7 (0-4) % Seg Neutrophils % 73.2 % Lymphocytes % 15.8 % Monocytes % 8.5 % Eosinophils % 0.4 % Basophils % 0.4 % Neutrophils # 3.5 (1.6-8.9) K/mcL Lymphocytes # 0.8 (0.6-4.6) K/mcL Monocytes # 0.4 (0.0-1.3) K/mcL Eosinophils # 0.0 (0.0-0.6) K/mcL Basophils # 0.0 (0.0-0.2) K/mcL Nucleated RBCs/100 WBC 0.8 H (0) /100 WBC Macrocytosis Present A (Not Present) Sodium 124 L (136-145) mEq/L Potassium 3.9 (3.5-5.1) mEq/L Chloride 90 L (98-107) mEq/L Carbon Dioxide 8 L* (23-29) mEq/L BUN 13 (8-23) mg/dL Creatinine 1.66 H (0.70-1.30) mg/dL Est GFR ( Amer) 51 L (> 60) Est GFR (Non-Af Amer) 42 L (> 60) BUN/Creatinine Ratio 8 (6-26) Glucose 75 (70-105) mg/dL Calculated Osmolality 257 L (280-300) Calcium 8.0 L (8.6-10.3) mg/dL Troponin I < 0.03 (< 0.04) ng/mL B-Natriuretic Peptide 22 (Less than 100) pg/mL Critical Care Time Critical Care Time: Yes Total Critical Care Time: 35 Attestation: Critical care time 35 minutes spent in medical management of the electrolyte abnormalities, elevated creatinine, multiple complaints. Attestation Statement - Attestation Attestation: I examined this patient and my medical decision-making was reviewed with the Resident Physician. I agree with the documented findings, disposition and treatment plan as described except to the extent set forth below. 62-year-old male presents emergency room for multiple complaints. Patient is a known alcoholic. Drinks a quart of whiskey per day. He is here for lower extremity swelling which I feel secondary to his body habitus and alcohol problems. His creatinine is elevated at 1.66. His chest x-ray does not show volume overload. He does have a history of CHF. He denies any active chest pain. He does feel short of breath of which is chronic. His workup here showed a sodium of 124 which I feel secondary to his alcoholism problems. He is also dry with a creatinine of 1.66. ENT was normal with a normal chest x-ray that does not show volume overload. We have given him some IV fluids. He states he is gained about 20 pounds. We will check his liver out to be sure he has no evidence of any cirrhosis or hepatorenal syndrome. His creatinine is 1.66. We have also ordered a banana bag. We have added on LFTs alcohol level and a magnesium level. Case was discussed with the hospitalist. Patient will be admitted. His EKG did not show any acute abnormalities. Pt's BP have been slightly low as well. See how responds to fluids. Pt also have bilat conjunctivitis. We will give him some Ciloxan ophthalmic drops.
[2018-02-15 23:02] LABS: Prothrombin Time 11.1 Seconds (9.4-12.1)
[2018-02-15 23:13] LABS: Alanine Aminotransferase 27 Units/L (7-52); Albumin 3.7 g/dL (3.5-5.7); Albumin/Globulin Ratio 1.6 (1.1-2.2); Alkaline Phosphatase 93 Units/L (34-104); Aspartate Amino Transferase 61 Units/L (13-39); Bilirubin,Direct 0.7 mg/dL (0.0-0.2); Bilirubin,Indirect 0.7 mg/dL (0.0-1.2); Bilirubin,Total 1.4 mg/dL (0.3-1.0); Ethanol 122 mg/dL (Less than 10); Globulin 2.3 g/dL (2.4-3.5); Magnesium 1.8 mg/dL (1.6-2.6); Phosphorous 1.8 mg/dL (2.7-4.5)
[2018-02-16] MEDS ORDERED: Naloxone 0.4 MG/ML INJ IVP PRN (02:07)
[2018-02-16] MEDS ORDERED: Ondansetron 4 MG/2 ML VIAL IVP PRN (02:10)
[2018-02-16] MEDS ORDERED: *HR* LORazepam 2 MG/ML VIAL IVP PRN ×3 (02:11)
[2018-02-16] MEDS: Nicotine 21 MG PATCH.TD24 TD SCH (04:00)
[2018-02-16 05:03] LABS: Hematocrit 35.6 % (37.5-50.1); Hemoglobin 12.1 g/dL (12.9-16.9); Mean Corpuscular Hemoglobin 40.2 pg (28.0-33.3); Mean Corpuscular Volume 118.3 fL (83.0-100.0); Mean Platelet Volume 10.1 fL (9.4-12.4); Platelet Count 114 K/mcL (140-400); Red Blood Count 3.01 M/mcL (4.19-5.50); Red Cell Distribution Width 14.6 % (11.5-14.5)
--- NOTE | 2018-02-16 06:01 | Internal Med History&Physical ---
Date of Encounter: 02/16/18 Time of Encounter: 01:40 Internal Medicine - H&P: HPI Chief complaint: Hyponatremia Admitted From: Emergency Dept Plans for Post Hospital Care: Home History of present illness: Mr. Berkowitz is a 62 year old male Patient presented to the emergency room with 5 week history of swelling in his feet and feeling terrible. He also has a known history of alcoholism with his last drink about 3 or 4 hours prior to admission. He states he has had increased shortness of breath, productive cough, and "snotty nose." He is also not been eating normally the last few days. He states he is also interested in quitting his alcohol use. Patient states he drinks about a bottle of whiskey daily and has done so for many years. He has gone through withdrawal in the past, usually presents with tremors, sweating but denies hallucinations. Emergency room CBC was within normal limits BMP showed a sodium of 124 and a creatinine of 1.66. Alcohol level was 122. Chest x-ray showed no acute abnormalities EKG was within normal limits. He was tachycardic but other vital signs were within normal limits. He was admitted for further management of his low sodium, lower extremity edema and potential alcohol withdrawal. Upon my assessment patient states that he feels terrible. His main complaint is lower extremity swelling and productive cough. He is also interested in getting into a program to help him stop his alcohol abuse. He denies chest pain but has had nausea without vomiting. He denies abdominal pain but has had loose stools for the last few days. Past Med Surg Social Fam HX - Past Medical History Medical history: CHF, COPD, hyperlipidemia, hypertension, other Additional medical history: heavy alcoholic Psychiatric history: no psych history - Past Surgical History Additional surgical history: T&A - Social History Smoking Status: Current every day smoker Smokeless Tobacco Status: No Alcohol use: occasionally Drug use: none - Family History Father Hx Family Cardiac Disorders: Yes Brother Hx Family Cardiac Disorders: Yes Mother Living Status: Hx Family Cancer: Yes Internal Medicine - H&P: Meds Albuterol Sulfate [Proair Respiclick] 2 puff IH Q4H PRN 08/16/16 [History] Buprenorphine HCl/Naloxone HCl [Buprenorphin-Naloxon 8-2 mg Sl] 1.25 tab SL DAILY 08/16/16 [History] Bupropion HCl [Wellbutrin Xl] 300 mg PO QAM 08/16/16 [History] Lisinopril [Zestril] 2.5 mg PO DAILY 08/16/16 [History] Loratadine [Allergy Relief] 10 mg PO DAILY 08/16/16 [History] Budesonide/Formoterol 160/4.5 [Symbicort 160/4.5] 2 puff IH BIDR #1 inhaler 08/26/16 [Rx] Atorvastatin [Lipitor] 20 mg PO HS 02/16/18 [History] Allergy/AdvReac Type Severity Reaction Status Date / Time Penicillins Allergy Blister Verified 08/16/16 14:21 Sulfa (Sulfonamide Allergy See Verified 10/14/16 10:51 Antibiotics) Comments All Systems PM: A 10-system review of systems was performed and is negative for pertinent findings except as documented above in the HPI. - Constitutional Vitals: Temp Pulse Resp BP Pulse Ox 98.6 F 111 18 107/59 100 02/16/18 03:14 02/16/18 03:14 02/16/18 03:14 02/16/18 03:14 02/16/18 03:14 General appearance: Present: cooperative, mild distress, A&O X 3, pleasant, ans wers questions appropriately Exam: As above - Head Head exam: Present: normal inspection - Eye Eye exam: Present: EOMI, normal appearance - Respiratory Respiratory exam: Present: decreased breath sounds. Absent: respiratory distress, wheezes - Cardiovascular Cardiovascular exam: Present: RRR. Absent: diastolic murmur, systolic murmur - GI/Abdominal GI/Abdominal exam: Present: normal bowel sounds, soft. Absent: tenderness - Extremities Exam Extremities exam: Present: pedal edema, warm, radial pulses palpable and symmetrical. Absent: calf tenderness, tenderness Additional comments: non pitting edema bilaterally - Neurological Exam Neurological exam: Present: no focal deficits, strengths equal and symetr throughout. Absent: motor sensory deficit, facial droop, speech deficit - Skin Skin exam: Present: dry, normal color, warm Internal Med - H&P Results - Labs CBC & Chem 7: 02/16/18 04:45 02/16/18 05:31 Labs: Short CBC 02/15/18 02/16/18 Range/Units 21:04 04:45 WBC 4.8 4.5 (4.3-11.1) K/mcL Hgb 12.4 L 12.1 L (12.9-16.9) g/dL Hct 36.5 L 35.6 L (37.5-50.1) % Plt Count 119 L 114 L (140-400) K/mcL Neutrophils # 3.5 (1.6-8.9) K/mcL BMP 02/15/18 21:04 Sodium 124 L Potassium 3.9 Chloride 90 L Carbon Dioxide 8 L* BUN 13 Creatinine 1.66 H Glucose 75 Calcium 8.0 L Cardiac Enzymes 02/15/18 Range/Units 21:04 Troponin I < 0.03 (< 0.04) ng/mL Liver Function 02/15/18 Range/Units 21:04 Total Bilirubin 1.4 H (0.3-1.0) mg/dL Direct Bilirubin 0.7 H (0.0-0.2) mg/dL AST 61 H (13-39) Units/L ALT 27 (7-52) Units/L Alkaline Phosphatase 93 (34-104) Units/L Albumin 3.7 (3.5-5.7) g/dL - Impressions ITS Impressions Chest X-Ray 02/15/18 20:55 IMPRESSION: Stable mild cardiomegaly. No definite acute disease. Small hiatal hernia. D/ / Markus Adams MD / Markus Adams MD Interpreting Provider: Markus Adams MD - Assessment and plan (1) Hyponatremia Current Visit: Yes Status: Acute Assessment and plan: Patient's sodium was 124 in the emergency room. He was given 1 L bolus of IV fluids. Likely this is secondary to his alcoholism. Monitor sodium correction closely Ordered urine sodium and urine osmolality Repeat BMP every 4 hours until resolution (2) Tobacco abuse Current Visit: No Status: Acute Assessment and plan: Nicotine patch (3) Alcoholism Current Visit: Yes Status: Acute Assessment and plan: Patient has long history of alcohol abuse, drinks about bottle of whiskey daily. Last drink was just prior to his arrival to the ER. Blood alcohol level was 122. Patient has gone through withdrawals in the past, states he usually gets tremors. [facility] protocol Social work consult as patient is interested in quitting. Banana bag Thiamine supplementation and multivitamin (4) Peripheral edema Current Visit: Yes Status: Acute Assessment and plan: Patient does have swelling in his lower extremities, but the edema is nonpitting. Lung sounds were clear. Does have a history of CHF. Continue to monitor, patient receiving IV fluids for hyponatremia and alcohol withdrawal. Patient does take Lasix at home but we are holding this medication at this time. (5) Elevated serum creatinine Current Visit: Yes Status: Acute Assessment and plan: Secondary to dehydration as patient has not been eating or drinking water. Continue IV fluids. Repeat labs in the morning (6) SOB (shortness of breath) Current Visit: Yes Status: Acute Assessment and plan: Patient has had a cough for the last few weeks. Lung sounds on exam clear Azithromycin 500 mg IV daily for 3 days (7) Conjunctivitis Current Visit: Yes Status: Acute Assessment and plan: Patient has yellow discharge bilaterally in his eyes. Emergency room started him on ciprofloxacin drops. Continue eyedrops Qualifiers: Conjunctivitis type: acute Qualified Code(s): B30.9 - Viral conjunctivitis, unspecified (8) DVT prophylaxis Current Visit: No Status: Acute Assessment and plan: Subcutaneous heparin - Time Spent With Patient Total time spent is greater than 50% in coordination of care (as documented) at patient's floor/unit and/or counseling patient: Greater than 35 minutes
[2018-02-16 06:22] LABS: Calcium 7.3 mg/dL (8.6-10.3); Potassium 4.1 mEq/L (3.5-5.1)
[2018-02-16] MEDS ORDERED: Azithromycin 500 MG in D5% in Water 250 ML IVPB SCH (07:00)
[2018-02-16] MEDS: *HR* Heparin 5,000 UNIT/ML VIAL SQ SCH ×2 (07:24→17:20)
[2018-02-16] MEDS ORDERED: Sodium Bicarbonate 50 MEQ in 0.45 % Sodium Chloride 1,000 ML IVC SCH (08:45)
[2018-02-16] MEDS ORDERED: Ringers Solution, Lactated 1,000 ML IVC ONE (08:46)
[2018-02-16] MEDS ORDERED: Ringers Solution, Lactated 1,000 ML ONE (08:49)
[2018-02-16 08:50] LABS: ABG PCO2 < 13 mmHg (35-45); ABG PH 7.23 pH Units (7.32-7.45); ABG PO2 121 mmHg (85-104)
[2018-02-16] MEDS: Folic Acid 1 MG TABLET PO SCH (08:57)
[2018-02-16] MEDS: Thiamine (B-1) 100 MG TABLET PO SCH (08:58)
[2018-02-16] MEDS: Vitamin B Complex/Vit C/Vit E 1 EACH TABLET PO SCH (08:58)
[2018-02-16] MEDS ORDERED: Nicotine 21 MG PATCH.TD24 TD SCH (09:00)
[2018-02-16] MEDS ORDERED: SODIUM BICARBONATE IVC ONE (09:00)
[2018-02-16] MEDS ORDERED: Ringers Solution, Lactated 1,000 ML IVC SCH (09:00)
--- NOTE | 2018-02-16 09:12 | Event Note ---
Date of Encounter: 02/16/18 Time of Encounter: 09:00 I have seen and evaluated the patient at bedside. Patient tachypnic, hypotensive. In moderate respiratory distress. Patient reported that he drinks about 1/2 a litter of vodka a day, but denies drinking any home made alcoholic beverage. denies chest pain, or abdominal pain. Physical exam Vitals: reviewed General: Alert and orientedx4. In mild to moderate respiratory distress. Skin: chronic venous stasis changes in the lower ext b/l HEENT: EOM, pupils equal, round and reactive. Cardiovascular: Tachycardic, Normal S1 & S2, no rubs, murmurs or gallops. Lungs: Clear to auscultation bilaterally, no wheezes or crackles. Abdomen: Obese, Soft, non-tender, no rigidity. Extremities: hard tick skin, 2+ edema. Neurological: Normal cognition and motor skills. Rest of the physical exam is non contributory Assessment and Plan: 1. Severe metabolic acidosis unclear etiology cannot r/o toxic ingestion 2. Hyponatremia 3. Alcohol withdrawal 4. HFpEF 5. VTE prophylaxis 6. BEN/CKD 7. Conjuntivitis Plan Patient being transferred to the critical care unit give 1amp of Bicarbonate 1 liter of Lactate ringer bolus LR@100mls/hr continuos Consider nephrology consult Repert ABG post bicarb replacement U/A and sediment/crystals Heparin subQ CIWA protocol NPO Accu-checks Q6HRs plus lispro medium dose sliding scale Q6HR time spent evaluating the patient 48 minutes.
--- NOTE | 2018-02-16 09:17 | Electrocardiograph Report ---
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
[2018-02-16] MEDS ORDERED: Sodium Bicarbonate 100 MEQ in D5% in Water 1,000 ML IVC SCH ×2 (09:45→20:14)
[2018-02-16] MEDS ORDERED: Dexmedetomidine HCl 400 MCG/100 ML MLS IVC ONE (09:46)
[2018-02-16] MEDS ORDERED: methylPREDNISolone 125 MG/2 ML VIAL IVP ONE (09:50)
--- NOTE | 2018-02-16 09:58 | Pulmonology Consult Note ---
<Hung Lemus - Last Filed: 02/16/18 13:09> Date of Encounter: 02/16/18 Time of Encounter: 09:57 Assessment and Plan (1) Acid-base disorder, mixed Current Visit: Yes Status: Acute AB.23/<13/121/TNP/TNP/TNP on RA BMP: CO2:6 A Interpretation suggests mixed metabolic acidosis/alkalosis with respiratory alkalosis Resp alkalosis most likely from compensation of the acidosis AG metabolic acidosis suspect due to EtOH intoxication Delta osm gap 27 - consider toxic alcohol ingestion - patient denies APAP and ASA WNL Lactic acid: 1.1 Ethanol: 122 Plan: - Continue to monitor acid-base - Bicarb drip initiated - Patient HD stable, will continue to monitor (2) Alcohol withdrawal Current Visit: Yes Status: Acute Patient admits to drinking bottle of vodka daily Denies hallucinations at this time Tachycardic on exam and very anxious Plan: - CIWA protocol - Precedex for tachycardia and agitation as needed - FA, Thiamine, and VitB/C/E supplementation daily Qualifiers: Complication of substance-induced condition: uncomplicated Qualified Code(s): F10.230 - Alcohol dependence with withdrawal, uncomplicated (3) COPD exacerbation Current Visit: Yes Status: Acute Patient non-compliant with inhalers at home Productive cough with yellow sputum for 2-3 weeks Wheezing on exam CXR negative Plan: - Scheduled duonebs - Solumedrol 40mg q8h - Levaquin 750mg daily started on 02/16 - PRN NC oxygen - PRN qh bipap (4) Hyponatremia Current Visit: Yes Status: Acute Most likely secondary to malnutrition, alcoholism vs fluid overload Plan: - Fluid restrictions - Serial BMPs - Continue to monitor - On bicarb drip at this time (5) Lower extremity edema Current Visit: Yes Status: Acute No other signs of fluid overload on exam, lungs clear except for wheezing Bilateral lower extremities for > 5 weeks No calf tenderness, unilateral swelling or DVT risk factors Echo on 08/17/16 - EF 65% diastolic dysfunction Plan: - Repeat echo - (6) BEN (acute kidney injury) Current Visit: Yes Status: Acute Cr 1.94 (1.96) Baseline WNL Secondary to acidosis vs prerenal vs toxic alcohol ingestion Plan: - Continue with bicarb drip - Continue to monitor function (7) Conjunctivitis Current Visit: Yes Status: Acute Cipro drops q6h x 7 days Qualifiers: Conjunctivitis type: acute Acute conjunctivitis type: unspecified Laterality: bilateral Qualified Code(s): H10.33 - Unspecified acute conjunctivitis, bilateral (8) DVT prophylaxis Current Visit: Yes Status: Acute Heparin SQ q12h History of Present Illness Consult date: 02/16/18 Requesting physician: Travis Mcclellan Reason for consult: COPD, other (COPD and acidosis) Chief complaint: dyspnea and lower extremity swelling History of present illness: Patient is a 62M with PMHx of COPD, CHF, HLD, HTN, and alcoholism admitted from the floor for further evaluation and treatment of acidosis. Patient initially presented to the ED for 5+ weeks of dyspnea, lower extremity swelling and productive cough. Patient states he drinks atleast one full bottle of vodka daily with last drink prior to arrival to ED yesterday evening. Denies vision changes, hallucinations, chest pain, abdominal pain, N/V/D or other associated symptoms at this time. Patient states patient has not been eating as much as he usually does, drinks daily, and doesn't take his home medications inclu ding water pills and breathing treatments. Smokes atleast 1ppd. Past Med Surg Social Fam HX - Past Medical History Medical history: CHF, COPD, hyperlipidemia, hypertension, other Additional medical history: heavy alcoholic Psychiatric history: no psych history - Past Surgical History Additional surgical history: T&A - Social History Smoking Status: Current every day smoker Smokeless Tobacco Status: No Alcohol use: occasionally Drug use: none - Family History Brother Hx Family Cardiac Disorders: Yes Father Hx Family Cardiac Disorders: Yes Mother Living Status: Hx Family Cancer: Yes Medications and Allergies RX: Albuterol Sulfate [Proair Respiclick] 2 puff IH Q4H PRN 08/16/16 [History] RX: Buprenorphine HCl/Naloxone HCl [Buprenorphin-Naloxon 8-2 mg Sl] 1 tab SL QAM 08/16/16 [History] RX: Bupropion HCl [Wellbutrin Xl] 300 mg PO QAM 08/16/16 [History] RX: Lisinopril [Zestril] 2.5 mg PO DAILY 08/16/16 [History] RX: Loratadine [Allergy Relief] 10 mg PO DAILY 08/16/16 [History] Atorvastatin [Lipitor] 20 mg PO HS 02/16/18 [History] Buprenorphine HCl/Naloxone HCl [Buprenorphin-Naloxon 8-2 mg Sl] 0.25 tab SL QPM 02/16/18 [History] Allergy/AdvReac Type Severity Reaction Status Date / Time Penicillins Allergy Blister Verified 08/16/16 14:21 Sulfa (Sulfonamide Allergy See Verified 10/14/16 10:51 Antibiotics) Comments All Systems: The remainder of the systems were reviewed and are negative - Constitutional Constitutional: weakness - EENT Eyes: other (discharge from bilateral eyes) Ears: as per HPI Nose, mouth and throat: as per HPI - Cardiovascular Cardiovascular: as per HPI, dyspnea, dyspnea on exertion, leg edema, no chest pain - Respiratory Respiratory: cough, dyspnea, chest congestion - Gastrointestinal Gastrointestinal: no abdominal pain, no diarrhea, no vomiting - Genitourinary Genitourinary: as per HPI - Integumentary Integumentary: as per HPI - Neurological Neurological: as per HPI, no focal weakness, no numbness, no sensory deficit - Psychiatric Psychiatric: as per HPI - Endocrine Endocrine: as per HPI - Hematologic/Lymphatic Hematologic/Lymphatic: as per HPI - Allergic/Immunologic Allergic/Immunologic: as per HPI Physical Examination Vital Signs: Vital Signs, Last 4 Hours Temp Pulse Resp BP Pulse Ox 02/16/18 08:53 97.5 F L 110 18 111/70 100 02/16/18 07:39 97.9 F 111 16 88/78 100 General appearance: other (anixous actively coughing throughout exam with obvious purulent sputum production) Eyes: injected, other (bilateral discharge and crusting of the upper and lower eyelid) ENT: oropharynx dry Neck: supple Effort: mildly labored Auscultation: bilateral: wheezes Cardiovascular: other (tachycardic. regular rhythm) Gastrointestinal: normoactive bowel sounds Extremities: no cyanosis, edema (bilateral lower extremities) Musculoskeletal: no deformities normal mental status, non-focal exam, pupils equal and round, motor strength normal and symmetric affect normal, anxious Results - Laboratory Findings CBC and BMP: 02/16/18 04:45 02/16/18 10:23 ABG ABG pH 7.23 pH Units (7.32-7.45) L 02/16/18 08:20 ABG pCO2 < 13 mmHg (35-45) L* 02/16/18 08:20 ABG pO2 121 mmHg (85-104) H 02/16/18 08:20 ABG O2 Saturation TNP 02/16/18 08:20 PT/INR, D-dimer PT 11.1 Seconds (9.4-12.1) 02/15/18 21:04 Abnormal lab findings: Abnormal lab results RBC 3.01 M/mcL (4.19-5.50) L 02/16/18 04:45 Hgb 12.1 g/dL (12.9-16.9) L 02/16/18 04:45 Hct 35.6 % (37.5-50.1) L 02/16/18 04:45 MCV 118.3 fL (83.0-100.0) H 02/16/18 04:45 MCH 40.2 pg (28.0-33.3) H 02/16/18 04:45 RDW 14.6 % (11.5-14.5) H 02/16/18 04:45 Plt Count 114 K/mcL (140-400) L 02/16/18 04:45 Nucleated RBCs/100 WBC 0.8 /100 WBC (0) H 02/15/18 21:04 Macrocytosis Present (Not Present) A 02/15/18 21:04 ABG pH 7.23 pH Units (7.32-7.45) L 02/16/18 08:20 ABG pCO2 < 13 mmHg (35-45) L* 02/16/18 08:20 ABG pO2 121 mmHg (85-104) H 02/16/18 08:20 Sodium 123 mEq/L (136-145) L 02/16/18 05:31 Chloride 90 mEq/L (98-107) L 02/16/18 05:31 Carbon Dioxide 5 mEq/L (23-29) L* 02/16/18 05:31 Creatinine 1.85 mg/dL (0.70-1.30) H 02/16/18 05:31 Est GFR ( Amer) 45 (> 60) L 02/16/18 05:31 Est GFR (Non-Af Amer) 37 (> 60) L 02/16/18 05:31 Calculated Osmolality 256 (280-300) L 02/16/18 05:31 Calcium 7.3 mg/dL (8.6-10.3) L 02/16/18 05:31 Phosphorus 1.8 mg/dL (2.7-4.5) L 02/15/18 21:04 Total Bilirubin 1.4 mg/dL (0.3-1.0) H 02/15/18 21:04 Direct Bilirubin 0.7 mg/dL (0.0-0.2) H 02/15/18 21:04 AST 61 Units/L (13-39) H 02/15/18 21:04 Serum Total Protein 6.0 g/dL (6.4-8.9) L 02/15/18 21:04 Globulin 2.3 g/dL (2.4-3.5) L 02/15/18 21:04 Ethyl Alcohol 122 mg/dL (Less than 10) H 02/15/18 21:04 - Diagnostic Findings Chest x-ray: image reviewed - Clinical Findings Intake & Output: Intake & Output 02/15/18 02/16/18 02/16/18 23:59 07:59 15:59 Intake Total 1999 Output Total 0 / 0 0 / 0 Balance 1999 0 / 0 Weight 129.546 kg 135 kg Consult Discharge Plan - Plan Referrals: Margarito Cordova MD [Primary Care Provider] - <Dionisio August - Last Filed: 02/17/18 08:29> Date of Encounter: 02/17/18 All Systems: The remainder of the systems were reviewed and are negative Physical Examination Vital Signs: Vital Signs, Last 4 Hours Temp Pulse Resp BP Pulse Ox 02/16/18 08:53 97.5 F L 110 18 111/70 100 02/16/18 07:39 97.9 F 111 16 88/78 100 Results - Laboratory Findings CBC and BMP: 02/16/18 04:45 02/17/18 03:50 ABG ABG pH 7.23 pH Units (7.32-7.45) L 02/16/18 08:20 ABG pCO2 < 13 mmHg (35-45) L* 02/16/18 08:20 ABG pO2 121 mmHg (85-104) H 02/16/18 08:20 ABG O2 Saturation TNP 02/16/18 08:20 PT/INR, D-dimer PT 11.1 Seconds (9.4-12.1) 02/15/18 21:04 Abnormal lab findings: Abnormal lab results RBC 3.01 M/mcL (4.19-5.50) L 02/16/18 04:45 Hgb 12.1 g/dL (12.9-16.9) L 02/16/18 04:45 Hct 35.6 % (37.5-50.1) L 02/16/18 04:45 MCV 118.3 fL (83.0-100.0) H 02/16/18 04:45 MCH 40.2 pg (28.0-33.3) H 02/16/18 04:45 RDW 14.6 % (11.5-14.5) H 02/16/18 04:45 Plt Count 114 K/mcL (140-400) L 02/16/18 04:45 Nucleated RBCs/100 WBC 0.8 /100 WBC (0) H 02/15/18 21:04 Macrocytosis Present (Not Present) A 02/15/18 21:04 ABG pH 7.23 pH Units (7.32-7.45) L 02/16/18 08:20 ABG pCO2 < 13 mmHg (35-45) L* 02/16/18 08:20 ABG pO2 121 mmHg (85-104) H 02/16/18 08:20 Sodium 123 mEq/L (136-145) L 02/16/18 05:31 Chloride 90 mEq/L (98-107) L 02/16/18 05:31 Carbon Dioxide 5 mEq/L (23-29) L* 02/16/18 05:31 Creatinine 1.85 mg/dL (0.70-1.30) H 02/16/18 05:31 Est GFR ( Amer) 45 (> 60) L 02/16/18 05:31 Est GFR (Non-Af Amer) 37 (> 60) L 02/16/18 05:31 Calculated Osmolality 256 (280-300) L 02/16/18 05:31 Calcium 7.3 mg/dL (8.6-10.3) L 02/16/18 05:31 Phosphorus 1.8 mg/dL (2.7-4.5) L 02/15/18 21:04 Total Bilirubin 1.4 mg/dL (0.3-1.0) H 02/15/18 21:04 Direct Bilirubin 0.7 mg/dL (0.0-0.2) H 02/15/18 21:04 AST 61 Units/L (13-39) H 02/15/18 21:04 Serum Total Protein 6.0 g/dL (6.4-8.9) L 02/15/18 21:04 Globulin 2.3 g/dL (2.4-3.5) L 02/15/18 21:04 Ethyl Alcohol 122 mg/dL (Less than 10) H 02/15/18 21:04 - Clinical Findings Intake & Output: Intake & Output 02/15/18 02/16/18 02/16/18 23:59 07:59 15:59 Intake Total 1999 Output Total 0 / 0 0 / 0 Balance 1999 0 / 0 Weight 129.546 kg 135 kg - Attending Attestation I examined this patient and my medical decision-making was reviewed with the Resident Physician. I agree with the documented findings, disposition and treatment plan as described except to the extent set forth below. Patient seen and examined. Labs, radiology, chart personally reviewed. Agree with resident's history and physical, assessment, plan with following comments: METHODS ENGINEER: Patient follows commands, Patient is anxious and he is concerned he could have delerium tremenous, however he is not in DT at this time, he has CIWA protocol and will start him on Precedex for anxiety and it will help withdrawal and DT. He will need multivitamins Pulmonary: Acceptable oxygenation and ventilation. Patient is tachypnic from his severe metabolic an ion gap acidosis. He will be treated for AECOP with inhalers and systemic steroid and empiric antibiotic. There is always risk of this patient respiratory status could deteriorate and may need invasive mechanical ventilation. Cardiovascular: tachycardia and will check echo because of his alcohol. GI: Nutrition per dietary and GI prophylaxis per routine Heme: DVT prophylaxis per routine ID: Continue antibiotics and plan to de-escalation Renal; urine out put and renal funtion reviewed. Need osmolar gap. He has mixed acute respiratory alkalosis and metabolic alkalosis. Electrolytes protocol. There is significant risk his condition deteriorate from electrolytes abnormalities and severity of his acidosis and I am hoping with replacement of his sodium bicarbonate and electrolytes replacement. Endorcine: blood glucose is monitored. I have to monitor his the blood glucose carefully. Lines: all lines checked and no evidence of infections Skin: skin care to prevent pressure ulcers per nursing routine care. Patient with chronic skin changes and need local care. Overall patient is poor prognosis if he continue to drink that much alcohol. I spent 35 min of Critical Care time with this patient. It involved decision making of high complexity to assess, manipulate, and support vital organ system failure and/or to prevent further life threatening deterioration of the patient's condition. The time involved in the performance of separately reportable procedures was not counted toward critical care time.
[2018-02-16] MEDS ORDERED: Levofloxacin 750 MG/150 ML 750 MG/150 ML BAG IVPB SCH (10:00)
[2018-02-16] MEDS: Ipratropium/Albuterol Neb 3 ML IH SCH ×4 (10:31→23:39)
[2018-02-16 10:48] LABS: Bilirubin,Urine Large (Negative); Blood,Urine Moderate (Negative); Clarity,Urine Cloudy (Clear); Color,Urine Dark Yellow (Yellow); Glucose,Urine (UA) Normal (Normal); Ketones,Urine >=160 mg/dL (Negative); Leukocyte Esterase,Urine Small (Negative); Nitrite,Urine Negative (Negative); PH,Urine 5.5 pH Units (5.0-8.0); Protein,Urine 30 mg/dL (Neg-Trace); Specific Gravity,Urine 1.012 (1.010-1.025)
[2018-02-16] MEDS: Dexmedetomidine HCl 400 MCG/100 ML MLS IVC SCH ×4 (10:52→21:58)
[2018-02-16 11:00] LABS: Acetaminophen < 10 mcg/mL (10-20); BUN/Creatinine Ratio 10 (6-26); Blood Urea Nitrogen 19 mg/dL (8-23); Calcium 7.3 mg/dL (8.6-10.3); Carbon Dioxide 6 mEq/L (23-29); Chloride 89 mEq/L (98-107); Glucose 87 mg/dL (70-105); Osmolality,Calculated 258 (280-300); Potassium 4.3 mEq/L (3.5-5.1); Salicylate < 2.5 mg/dL (15.0-30.0); Sodium 123 mEq/L (136-145); eGFR For Non-African Americans 35 (> 60)
[2018-02-16 11:01] LABS: Calcium 7.4 mg/dL (8.6-10.3); Potassium 4.3 mEq/L (3.5-5.1)
[2018-02-16 11:07] LABS: Amphetamine Screen,Urine Negative ng/mL (Cutoff=1000); Barbiturate Screen,Urine Negative ng/mL (Cutoff=200); Benzodiazepines Screen,Urine Negative ng/mL (Cutoff=200); Cannabinoid Screen,Urine Negative ng/mL (Cutoff = 50); Cocaine Screen,Urine Negative ng/mL (Cutoff= 300); Opiate Screen,Urine Negative ng/mL (Cutoff=300); Phencyclidine Screen,Urine Negative ng/mL (Cutoff=25)
[2018-02-16 11:14] LABS: Squamous Epithelial Cell,Urine Many per lpf (None-Few)
[2018-02-16 11:15] LABS: Bacteria,Urine Moderate per hpf (None-Few)
[2018-02-16] MEDS: Ciprofloxacin HCL Soln 5 ML BOTTLE RIGHT EYE SCH ×3 (12:00→23:20)
[2018-02-16] MEDS: Nystatin POWDER 30 GM BOTTLE TP SCH ×2 (14:51→20:29)
[2018-02-16] MEDS: Ciprofloxacin HCL Soln 5 ML BOTTLE LEFT EYE SCH ×2 (14:51→23:20)
[2018-02-16] MEDS ORDERED: Perflutren Lipid Microsphere 1.3 ML in 0.9 % Sodium Chloride 8.7 ML IVP ONE (14:51)
[2018-02-16 15:50] LABS: ABG Base Excess -18 mEq/L (-2 to 3); ABG HCO3 7 mEq/L (21-27); ABG Oxygen Saturation 97 % (95-98); ABG PCO2 17 mmHg (35-45); ABG PH 7.25 pH Units (7.32-7.45); ABG PO2 96 mmHg (85-104); ABG TCO2 8 mEq/L (20-26)
[2018-02-16 16:12] LABS: Calcium 7.2 mg/dL (8.6-10.3); Potassium 4.6 mEq/L (3.5-5.1)
[2018-02-16] MEDS: MethylPREDNISolone 40 MG/ML VIAL IVP SCH ×2 (17:20→23:19)
[2018-02-16 19:39] LABS: Calcium 7.1 mg/dL (8.6-10.3); Potassium 4.5 mEq/L (3.5-5.1)
[2018-02-16 20:02] LABS: ABG Base Excess -19 mEq/L (-2 to 3); ABG HCO3 6 mEq/L (21-27); ABG Oxygen Saturation 97 % (95-98); ABG PCO2 14 mmHg (35-45); ABG PH 7.24 pH Units (7.32-7.45); ABG PO2 104 mmHg (85-104); ABG TCO2 7 mEq/L (20-26)
[2018-02-16 23:25] LABS: Calcium 7.1 mg/dL (8.6-10.3); Potassium 4.2 mEq/L (3.5-5.1)
[2018-02-16] MEDS ORDERED: *HR* Dextrose 50 % in Water (Syg) 50 ML SYRINGE IVP PRN (23:38)
[2018-02-16] MEDS ORDERED: Dextrose Gel 15 GM/37.5 ML TUBE PO PRN ×2 (23:38)
[2018-02-16] MEDS ORDERED: D5% in Water 1,000 ML IVC PRN (23:38)
[2018-02-17] MEDS ORDERED: Insulin LISPRO 300 UNITS/3 ML VIAL SQ ONE
[2018-02-17] MEDS: Insulin LISPRO 300 UNITS/3 ML VIAL SQ SCH ×5 (00:03→23:46)
[2018-02-17] MEDS ORDERED: Ringers Solution, Lactated 1,000 ML IVC ONE ×2 (00:50→05:11)
[2018-02-17] MEDS: Dexmedetomidine HCl 400 MCG/100 ML MLS IVC SCH ×6 (00:56→20:02)
[2018-02-17 01:35] LABS: ABG Base Excess -13 mEq/L (-2 to 3); ABG HCO3 11 mEq/L (21-27); ABG Oxygen Saturation 97 % (95-98); ABG PCO2 20 mmHg (35-45); ABG PH 7.33 pH Units (7.32-7.45); ABG PO2 98 mmHg (85-104); ABG TCO2 11 mEq/L (20-26)
[2018-02-17] MEDS: Ipratropium/Albuterol Neb 3 ML IH SCH ×6 (04:08→23:48)
[2018-02-17 04:30] LABS: Calcium 7.6 mg/dL (8.6-10.3)
[2018-02-17 05:05] LABS: ABG Base Excess -10 mEq/L (-2 to 3); ABG HCO3 13 mEq/L (21-27); ABG Oxygen Saturation 97 % (95-98); ABG PCO2 23 mmHg (35-45); ABG PH 7.37 pH Units (7.32-7.45); ABG PO2 92 mmHg (85-104); ABG TCO2 14 mEq/L (20-26)
[2018-02-17] MEDS ORDERED: Ringers Solution, Lactated 1,000 ML IVC SCH (05:15)
[2018-02-17] MEDS: MethylPREDNISolone 40 MG/ML VIAL IVP SCH ×4 (05:29→23:49)
[2018-02-17] MEDS: *HR* Heparin 5,000 UNIT/ML VIAL SQ SCH ×2 (05:29→18:11)
[2018-02-17] MEDS: Ciprofloxacin HCL Soln 5 ML BOTTLE RIGHT EYE SCH ×4 (05:30→23:45)
[2018-02-17] MEDS: Ciprofloxacin HCL Soln 5 ML BOTTLE LEFT EYE SCH ×4 (05:30→23:45)
--- NOTE | 2018-02-17 07:11 | Pulmonology Progress Note ---
<Hung Lemus - Last Filed: 02/17/18 08:29> Date of Encounter: 02/17/18 Time of Encounter: 07:09 Assessment and Plan (1) Acid-base disorder, mixed Current Visit: Yes Status: Acute AB.37/23/92/13/14/97%/-10 BMP: Na 129 (125) K 4.0 (4.2) Plan: - Bicarb drip stopped - Continue to monitor (2) Alcohol withdrawal Current Visit: Yes Status: Acute Continues on precedex Mental status improved overnight, continues with symptoms of withdrawal Plan: - [facility] protocol - FA, Thiamine, and VitB/C/E supplementation daily for 2 more bags Qualifiers: Complication of substance-induced condition: uncomplicated Qualified Code(s): F10.230 - Alcohol dependence with withdrawal, uncomplicated (3) COPD exacerbation Current Visit: Yes Status: Acute Patient non-compliant with inhalers at home Productive cough with yellow sputum for 2-3 weeks Today lungs sound clear CXR negative Plan: - Scheduled duonebs - Solumedrol 40mg form q8h to BID - Levaquin 750mg daily started on 02/16 - Day 2 - PRN NC oxygen - PRN qh bipap (4) Hyponatremia Current Visit: Yes Status: Acute Most likely secondary to malnutrition, alcoholism vs fluid overload Na 129 (125) 2L of LR overnight as well as 125ml/hr MIVF UOP of 2750 since last night, however appears to be slowing down I/O: cumulative +75ml Plan: - Switch to 75ml/hr MIVF - BMP @ noon - Continue to monitor (5) Lower extremity edema Current Visit: Yes Status: Acute Lungs clear Bilateral lower extremities for > 5 weeks No calf tenderness, unilateral swelling or DVT risk factors Echo on 08/17/16 - EF 65% diastolic dysfunction Plan: - Repeat echo yesterday unchanged from prior - With improvement of condition will counselor at law patient on medication compliance, leg elevation, and compression stockings (6) BEN (acute kidney injury) Current Visit: Yes Status: Acute Cr 1.57 (1.96) Baseline WNL Secondary to acidosis vs prerenal vs toxic alcohol ingestion Plan: - Improved from yesterday, continue to monitor function - MIVF 75ml/hr (7) Conjunctivitis Current Visit: Yes Status: Acute Cipro drops q6h x 7 days Qualifiers: Conjunctivitis type: acute Acute conjunctivitis type: unspecified Laterality: bilateral Qualified Code(s): H10.33 - Unspecified acute conjunctivitis, bilateral (8) DVT prophylaxis Current Visit: Yes Status: Acute Heparin SQ q12h Subjective Principal diagnosis: EtOH intoxication and COPD exacerbation Interval history: Patient is a 62M with PMHx of COPD, CHF, HLD, HTN, and alcoholism admitted from the floor for further evaluation and treatment of acidosis. Patient initially presented to the ED for 5+ weeks of dyspnea, lower extremity swelling and productive cough. Patient states he drinks atleast one full bottle of vodka daily with last drink prior to arrival to ED yesterday evening. Overnight, patient had no complications. Received fluids and had significant amount of UOP, however this is decreasing. Patient taken off precedex and initially tolerated well and oriented, however became agitated again and precedex was increased. No other overnight events. Objective PUL Vital signs: Last Vital Signs Temp 98.4 F 02/17/18 04:00 Pulse 90 02/17/18 06:00 Resp 19 02/17/18 06:00 BP 117/71 02/17/18 06:00 Pulse Ox 94 02/17/18 06:00 General appearance: asleep, other (on precedex) Eyes: nonicteric ENT: oropharynx moist Neck: supple Effort: normal Cardiovascular: regular rate and rhythm Gastrointestinal: normoactive bowel sounds Integumentary: normal Extremities: no cyanosis, edema Musculoskeletal: no deformities non-focal exam, other (Follows commands) other (sedated) Results - Laboratory Findings CBC and BMP: 02/16/18 04:45 02/17/18 03:50 ABG ABG pH 7.37 pH Units (7.32-7.45) 02/17/18 05:02 ABG pCO2 23 mmHg (35-45) L 02/17/18 05:02 ABG pO2 92 mmHg (85-104) 02/17/18 05:02 ABG O2 Saturation 97 % (95-98) 02/17/18 05:02 PT/INR, D-dimer PT 11.1 Seconds (9.4-12.1) 02/15/18 21:04 Abnormal lab findings: Abnormal lab results RBC 3.01 M/mcL (4.19-5.50) L 02/16/18 04:45 Hgb 12.1 g/dL (12.9-16.9) L 02/16/18 04:45 Hct 35.6 % (37.5-50.1) L 02/16/18 04:45 MCV 118.3 fL (83.0-100.0) H 02/16/18 04:45 MCH 40.2 pg (28.0-33.3) H 02/16/18 04:45 RDW 14.6 % (11.5-14.5) H 02/16/18 04:45 Plt Count 114 K/mcL (140-400) L 02/16/18 04:45 Nucleated RBCs/100 WBC 0.8 /100 WBC (0) H 02/15/18 21:04 Macrocytosis Present (Not Present) A 02/15/18 21:04 ABG pCO2 23 mmHg (35-45) L 02/17/18 05:02 ABG HCO3 13 mEq/L (21-27) L 02/17/18 05:02 ABG Total CO2 14 mEq/L (20-26) L 02/17/18 05:02 ABG Base Excess -10 mEq/L (-2 to 3) L 02/17/18 05:02 Sodium 129 mEq/L (136-145) L 02/17/18 03:50 Chloride 96 mEq/L (98-107) L 02/17/18 03:50 Carbon Dioxide 12 mEq/L (23-29) L 02/17/18 03:50 Creatinine 1.57 mg/dL (0.70-1.30) H 02/17/18 03:50 Est GFR ( Amer) 54 (> 60) L 02/17/18 03:50 Est GFR (Non-Af Amer) 45 (> 60) L 02/17/18 03:50 Glucose 215 mg/dL (70-105) H 02/17/18 03:50 POC Glucose 241 mg/dL (70-99) H 02/16/18 23:33 Serum Osmolality 275 mOsm/kg (280-300) L 02/16/18 10:23 Calculated Osmolality 277 (280-300) L 02/17/18 03:50 Calcium 7.6 mg/dL (8.6-10.3) L 02/17/18 03:50 Phosphorus 1.8 mg/dL (2.7-4.5) L 02/15/18 21:04 Total Bilirubin 1.4 mg/dL (0.3-1.0) H 02/15/18 21:04 Direct Bilirubin 0.7 mg/dL (0.0-0.2) H 02/15/18 21:04 AST 61 Units/L (13-39) H 02/15/18 21:04 Serum Total Protein 6.0 g/dL (6.4-8.9) L 02/15/18 21:04 Globulin 2.3 g/dL (2.4-3.5) L 02/15/18 21:04 Urine Clarity Cloudy (Clear) A 02/16/18 10:39 Urine Protein 30 mg/dL (Neg-Trace) H 02/16/18 10:39 Urine Ketones >=160 mg/dL (Negative) H 02/16/18 10:39 Urine Blood Moderate (Negative) H 02/16/18 10:39 Urine Bilirubin Large (Negative) H 02/16/18 10:39 Urine Urobilinogen 2.0 mg/dL (Normal) H 02/16/18 10:39 Ur Leukocyte Esterase Small (Negative) H 02/16/18 10:39 Urine Microscopic RBC 5-15 per hpf (0-3) H 02/16/18 10:39 Urine Microscopic WBC 3-5 per hpf (0-3) H 02/16/18 10:39 Ur Squamous Epith Cells Many per lpf (None-Few) H 02/16/18 10:39 Urine Bacteria Moderate per hpf (None-Few) H 02/16/18 10:39 Ur Culture Indicated? NO. (NO) A 02/16/18 10:39 Urine Osmolality 267 mOsm/kg (300-1090) L 02/17/18 04:45 Salicylates < 2.5 mg/dL (15.0-30.0) L 02/16/18 10:23 Acetaminophen < 10 mcg/mL (10-20) L 02/16/18 10:23 Ethyl Alcohol 122 mg/dL (Less than 10) H 02/15/18 21:04 - Clinical Findings Intake & Output: Intake & Output 02/16/18 02/16/18 02/17/18 15:59 23:59 07:59 Intake Total 100 / 100 1300 / 1300 3550 / 3550 Output Total 225 / 225 1600 / 1600 4300 / 4300 Balance -125 / -125 -300 / -300 -750 / -750 Weight 134 kg Consult Discharge Plan - Plan Referrals: Margarito Cordova MD [Primary Care Provider] - <Dionisio August Bell - Last Filed: 02/17/18 09:11> Date of Encounter: 02/17/18 Objective PUL Vital signs: Last Vital Signs Temp 98.6 F 02/17/18 07:44 Pulse 90 02/17/18 08:00 Resp 16 02/17/18 08:27 BP 129/78 02/17/18 08:00 Pulse Ox 95 02/17/18 08:27 Results - Laboratory Findings CBC and BMP: 02/16/18 04:45 02/17/18 03:50 ABG ABG pH 7.37 pH Units (7.32-7.45) 02/17/18 05:02 ABG pCO2 23 mmHg (35-45) L 02/17/18 05:02 ABG pO2 92 mmHg (85-104) 02/17/18 05:02 ABG O2 Saturation 97 % (95-98) 02/17/18 05:02 PT/INR, D-dimer PT 11.1 Seconds (9.4-12.1) 02/15/18 21:04 Abnormal lab findings: Abnormal lab results RBC 3.01 M/mcL (4.19-5.50) L 02/16/18 04:45 Hgb 12.1 g/dL (12.9-16.9) L 02/16/18 04:45 Hct 35.6 % (37.5-50.1) L 02/16/18 04:45 MCV 118.3 fL (83.0-100.0) H 02/16/18 04:45 MCH 40.2 pg (28.0-33.3) H 02/16/18 04:45 RDW 14.6 % (11.5-14.5) H 02/16/18 04:45 Plt Count 114 K/mcL (140-400) L 02/16/18 04:45 Nucleated RBCs/100 WBC 0.8 /100 WBC (0) H 02/15/18 21:04 Macrocytosis Present (Not Present) A 02/15/18 21:04 ABG pCO2 23 mmHg (35-45) L 02/17/18 05:02 ABG HCO3 13 mEq/L (21-27) L 02/17/18 05:02 ABG Total CO2 14 mEq/L (20-26) L 02/17/18 05:02 ABG Base Excess -10 mEq/L (-2 to 3) L 02/17/18 05:02 Sodium 129 mEq/L (136-145) L 02/17/18 03:50 Chloride 96 mEq/L (98-107) L 02/17/18 03:50 Carbon Dioxide 12 mEq/L (23-29) L 02/17/18 03:50 Creatinine 1.57 mg/dL (0.70-1.30) H 02/17/18 03:50 Est GFR ( Amer) 54 (> 60) L 02/17/18 03:50 Est GFR (Non-Af Amer) 45 (> 60) L 02/17/18 03:50 Glucose 215 mg/dL (70-105) H 02/17/18 03:50 POC Glucose 213 mg/dL (70-99) H 02/17/18 05:31 Serum Osmolality 275 mOsm/kg (280-300) L 02/16/18 10:23 Calculated Osmolality 277 (280-300) L 02/17/18 03:50 Calcium 7.6 mg/dL (8.6-10.3) L 02/17/18 03:50 Phosphorus 1.8 mg/dL (2.7-4.5) L 02/15/18 21:04 Total Bilirubin 1.4 mg/dL (0.3-1.0) H 02/15/18 21:04 Direct Bilirubin 0.7 mg/dL (0.0-0.2) H 02/15/18 21:04 AST 61 Units/L (13-39) H 02/15/18 21:04 Serum Total Protein 6.0 g/dL (6.4-8.9) L 02/15/18 21:04 Globulin 2.3 g/dL (2.4-3.5) L 02/15/18 21:04 Urine Clarity Cloudy (Clear) A 02/16/18 10:39 Urine Protein 30 mg/dL (Neg-Trace) H 02/16/18 10:39 Urine Ketones >=160 mg/dL (Negative) H 02/16/18 10:39 Urine Blood Moderate (Negative) H 02/16/18 10:39 Urine Bilirubin Large (Negative) H 02/16/18 10:39 Urine Urobilinogen 2.0 mg/dL (Normal) H 02/16/18 10:39 Ur Leukocyte Esterase Small (Negative) H 02/16/18 10:39 Urine Microscopic RBC 5-15 per hpf (0-3) H 02/16/18 10:39 Urine Microscopic WBC 3-5 per hpf (0-3) H 02/16/18 10:39 Ur Squamous Epith Cells Many per lpf (None-Few) H 02/16/18 10:39 Urine Bacteria Moderate per hpf (None-Few) H 02/16/18 10:39 Ur Culture Indicated? NO. (NO) A 02/16/18 10:39 Urine Osmolality 267 mOsm/kg (300-1090) L 02/17/18 04:45 Salicylates < 2.5 mg/dL (15.0-30.0) L 02/16/18 10:23 Acetaminophen < 10 mcg/mL (10-20) L 02/16/18 10:23 Ethyl Alcohol 122 mg/dL (Less than 10) H 02/15/18 21:04 - Clinical Findings Intake & Output: Intake & Output 02/16/18 02/17/18 02/17/18 23:59 07:59 15:59 Intake Total 1300 / 1300 3550 / 3550 Output Total 1600 / 1600 5050 / 5050 Balance -300 / -300 -1500 / -1500 Weight 134 kg - Attending Attestation I examined this patient and my medical decision-making was reviewed with the Resident Physician. I agree with the documented findings, disposition and basilia atment plan as described except to the extent set forth below. Patient seen and examined. Labs, radiology, chart personally reviewed. 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 Cardiovascular: stable GI: Nutrition per dietary and GI prophylaxis per routine Heme: DVT prophylaxis per routine ID: Continue antibiotics and plan to de-escalation Renal; urine out put and renal funtion reviewed. Patient has significant urine output and is not clear to me at this time whether from his alcohol ingestion and other possibilities such as diabetes insipidus is less likely, however checking urine osmolality and continue monitor urine output. Electrolytes abnormalities improving some Endorcine: blood glucose is monitored Lines: all lines checked and no evidence of infections Skin: skin care to prevent pressure ulcers per nursing routine care We will continue monitoring ICU for next 24 hours.
[2018-02-17] MEDS ORDERED: Azithromycin 250 MG TABLET PO SCH (08:00)
[2018-02-17] MEDS: Vitamin B Complex/Vit C/Vit E 1 EACH TABLET PO SCH (08:08)
[2018-02-17] MEDS: Thiamine (B-1) 100 MG TABLET PO SCH (08:08)
[2018-02-17] MEDS: Folic Acid 1 MG TABLET PO SCH (08:08)
[2018-02-17] MEDS: Nicotine 21 MG PATCH.TD24 TD SCH (09:42)
[2018-02-17] MEDS: Ringers Solution, Lactated 1,000 ML IVC SCH ×2 (09:42→18:29)
[2018-02-17] MEDS: Nystatin POWDER 30 GM BOTTLE TP SCH ×2 (09:43→19:59)
[2018-02-17 10:11] LABS: Hematocrit 32.2 % (37.5-50.1); Hemoglobin 11.4 g/dL (12.9-16.9); Immature Granulocytes % 1.3 % (0-4); Lymphocytes # 0.3 K/mcL (0.6-4.6); Lymphocytes % 8.6 %; Mean Corpuscular HGB Conc 35.4 g/dL (31.6-35.5); Mean Corpuscular Hemoglobin 39.4 pg (28.0-33.3); Mean Platelet Volume 10.3 fL (9.4-12.4); Monocytes # 0.2 K/mcL (0.0-1.3); Monocytes % 6.6 %; Neutrophils # 2.5 K/mcL (1.6-8.9); Platelet Count 112 K/mcL (140-400); Red Blood Count 2.89 M/mcL (4.19-5.50); Red Cell Distribution Width 13.8 % (11.5-14.5); Segmented Neutrophils % 83.5 %
[2018-02-17 10:13] LABS: Mean Corpuscular Volume 111.4 fL (83.0-100.0)
[2018-02-17 10:26] LABS: Macrocytosis Present (Not Present)
[2018-02-17 10:27] LABS: Anisocytosis 2+ (Not Present); Platelet Estimate Decreased (Normal)
[2018-02-17 10:30] LABS: BUN/Creatinine Ratio 13 (6-26); Blood Urea Nitrogen 18 mg/dL (8-23); Calcium 7.7 mg/dL (8.6-10.3); Carbon Dioxide 18 mEq/L (23-29); Chloride 98 mEq/L (98-107); Glucose 168 mg/dL (70-105); Osmolality,Calculated 280 (280-300); Potassium 3.9 mEq/L (3.5-5.1); Sodium 132 mEq/L (136-145); eGFR For Non-African Americans 53 (> 60)
[2018-02-17] MEDS ORDERED: Levofloxacin 750 MG/150 ML 750 MG/150 ML BAG IVPB SCH (12:00)
[2018-02-17] MEDS: Potassium Phosphate 44 MEQ in 0.9 % Sodium Chloride 250 ML IVPB PRN (12:14)
[2018-02-17] MEDS ORDERED: Thiamine (B-1) 100 MG, Folic Acid 1 MG, MVI, adult with vitamin K 10 ML in 0.9 % Sodi... IVPB SCH (18:00)
[2018-02-17 23:01] LABS: Phosphorous 1.1 mg/dL (2.7-4.5); Potassium 3.8 mEq/L (3.5-5.1)
[2018-02-18] MEDS: Potassium Phosphate 44 MEQ in 0.9 % Sodium Chloride 250 ML IVPB PRN (00:30)
[2018-02-18] MEDS: Dexmedetomidine HCl 400 MCG/100 ML MLS IVC SCH (02:05)
[2018-02-18] MEDS: Ipratropium/Albuterol Neb 3 ML IH SCH ×6 (04:07→20:34)
[2018-02-18] MEDS: Ciprofloxacin HCL Soln 5 ML BOTTLE LEFT EYE SCH ×4 (05:54→23:57)
[2018-02-18] MEDS: Ciprofloxacin HCL Soln 5 ML BOTTLE RIGHT EYE SCH ×4 (05:54→23:56)
[2018-02-18] MEDS: Insulin LISPRO 300 UNITS/3 ML VIAL SQ SCH ×3 (05:55→23:54)
[2018-02-18] MEDS: MethylPREDNISolone 40 MG/ML VIAL IVP SCH ×4 (05:58→23:55)
[2018-02-18] MEDS: *HR* Heparin 5,000 UNIT/ML VIAL SQ SCH ×2 (06:04→17:32)
[2018-02-18] MEDS: Ringers Solution, Lactated 1,000 ML IVC SCH ×2 (06:26→09:34)
[2018-02-18 06:27] LABS: Hematocrit 32.9 % (37.5-50.1); Hemoglobin 11.7 g/dL (12.9-16.9); Immature Granulocytes % 2.4 % (0-4); Lymphocytes # 0.3 K/mcL (0.6-4.6); Lymphocytes % 7.1 %; Mean Corpuscular HGB Conc 35.6 g/dL (31.6-35.5); Mean Corpuscular Hemoglobin 39.5 pg (28.0-33.3); Mean Corpuscular Volume 111.1 fL (83.0-100.0); Mean Platelet Volume 10.1 fL (9.4-12.4); Monocytes # 0.2 K/mcL (0.0-1.3); Monocytes % 5.8 %; Neutrophils # 3.2 K/mcL (1.6-8.9); Nucleated Red Blood Cells 1.3 /100 WBC (0); Platelet Count 118 K/mcL (140-400); Red Blood Count 2.96 M/mcL (4.19-5.50); Red Cell Distribution Width 14.5 % (11.5-14.5); Segmented Neutrophils % 84.7 %
[2018-02-18 06:35] LABS: VBG Ionized Calcium 1.09 mmol/L (1.15-1.35)
[2018-02-18 06:46] LABS: BUN/Creatinine Ratio 15 (6-26); Blood Urea Nitrogen 15 mg/dL (8-23); Calcium 8.1 mg/dL (8.6-10.3); Carbon Dioxide 22 mEq/L (23-29); Chloride 101 mEq/L (98-107); Glucose 163 mg/dL (70-105); Magnesium 1.9 mg/dL (1.6-2.6); Osmolality,Calculated 280 (280-300); Sodium 133 mEq/L (136-145); eGFR For Non-African Americans > 60 (> 60)
[2018-02-18 06:50] LABS: Macrocytosis Present (Not Present); Platelet Estimate Slight Decrease (Normal)
--- NOTE | 2018-02-18 07:20 | Pulmonology Progress Note ---
Date of Encounter: 02/18/18 Time of Encounter: 07:20 Assessment and Plan (1) Alcohol withdrawal Current Visit: Yes Status: Acute Appears to be improving He has been weaned off Precedex Continue CIWA protocol - with Ativan as needed Electrolytes monitored Vitamin supplementation web services professional consult Qualifiers: Complication of substance-induced condition: uncomplicated Qualified Code(s): F10.230 - Alcohol dependence with withdrawal, uncomplicated (2) BEN (acute kidney injury) Current Visit: Yes Status: Acute This is resolved and was likely related to prerenal azotemia complicated by Ethanol toxicity (3) Respiratory failure with hypoxia Current Visit: No Status: Resolved Currently stable on minimal amount of nasal cannula support wean to keep FiO2 greater than 88% Qualifiers: Chronicity: acute on chronic Qualified Code(s): J96.21 - Acute and chronic respiratory failure with hypoxia (4) Hyponatremia Current Visit: Yes Status: Acute This is secondary to chronic alcohol use and is improving No neurological sequelae (5) Acid-base disorder, mixed Current Visit: Yes Status: Acute This is resolving with secondary to combination of renal failure and ethanol toxicity (6) COPD exacerbation Current Visit: Yes Status: Acute Continue steroids which can be de-escalated to enteral formulation to complete 5 day burst Continue Levaquin 5 days (7) Sleep apnea Current Visit: No Status: Suspected Patient has high pretest probability for sleep-disordered breathing and will need to wear PAP at night while in the hospital and will need outpatient follow- up for this Recommend BiPAP at 18/5 [facility] Qualifiers: Sleep apnea type: unspecified type Qualified Code(s): G47.30 - Sleep apnea, unspecified Subjective Principal diagnosis: EtOH intoxication and COPD exacerbation Interval history: No acute events overnight. The patient's been hemodynamically stable he has been weaned down and actually off Precedex early this morning he appears calm and comfortable Objective PUL Vital signs: Last Vital Signs Temp 98.4 F 02/18/18 06:58 Pulse 92 02/18/18 06:00 Resp 22 02/18/18 06:00 BP 127/87 02/18/18 06:00 Pulse Ox 89 02/18/18 06:00 General appearance: no acute distress Eyes: nonicteric Mallampati (class): 4 Neck: other (Thick neck with a large chavarria) Effort: normal Auscultation: bilateral: diminished breath sounds Cardiovascular: regular rate and rhythm Gastrointestinal: normoactive bowel sounds, soft, non-tender Integumentary: normal Extremities: edema Musculoskeletal: no deformities normal mental status, non-focal exam, other (Mildly tremulous) mood appropriate Results - Laboratory Findings CBC and BMP: 02/18/18 06:15 02/18/18 06:15 ABG ABG pH 7.37 pH Units (7.32-7.45) 02/17/18 05:02 ABG pCO2 23 mmHg (35-45) L 02/17/18 05:02 ABG pO2 92 mmHg (85-104) 02/17/18 05:02 ABG O2 Saturation 97 % (95-98) 02/17/18 05:02 PT/INR, D-dimer PT 11.1 Seconds (9.4-12.1) 02/15/18 21:04 Abnormal lab findings: Abnormal lab results WBC 3.8 K/mcL (4.3-11.1) L 02/18/18 06:15 RBC 2.96 M/mcL (4.19-5.50) L 02/18/18 06:15 Hgb 11.7 g/dL (12.9-16.9) L 02/18/18 06:15 Hct 32.9 % (37.5-50.1) L 02/18/18 06:15 MCV 111.1 fL (83.0-100.0) H 02/18/18 06:15 MCH 39.5 pg (28.0-33.3) H 02/18/18 06:15 MCHC 35.6 g/dL (31.6-35.5) H 02/18/18 06:15 Plt Count 118 K/mcL (140-400) L 02/18/18 06:15 Lymphocytes # 0.3 K/mcL (0.6-4.6) L 02/18/18 06:15 Nucleated RBCs/100 WBC 1.3 /100 WBC (0) H 02/18/18 06:15 Platelet Estimate Slight Decrease (Normal) L 02/18/18 06:15 Anisocytosis 2+ (Not Present) A 02/17/18 06:39 Macrocytosis Present (Not Present) A 02/18/18 06:15 ABG pCO2 23 mmHg (35-45) L 02/17/18 05:02 ABG HCO3 13 mEq/L (21-27) L 02/17/18 05:02 ABG Total CO2 14 mEq/L (20-26) L 02/17/18 05:02 ABG Base Excess -10 mEq/L (-2 to 3) L 02/17/18 05:02 Sodium 133 mEq/L (136-145) L 02/18/18 06:15 Carbon Dioxide 22 mEq/L (23-29) L 02/18/18 06:15 Glucose 163 mg/dL (70-105) H 02/18/18 06:15 POC Glucose 179 mg/dL (70-99) H 02/17/18 23:24 Serum Osmolality 275 mOsm/kg (280-300) L 02/16/18 10:23 Calcium 8.1 mg/dL (8.6-10.3) L 02/18/18 06:15 Venous Ioniz Calcium 1.09 mmol/L (1.15-1.35) L 02/18/18 06:32 Phosphorus 1.1 mg/dL (2.7-4.5) L 02/17/18 22:30 Total Bilirubin 1.4 mg/dL (0.3-1.0) H 02/15/18 21:04 Direct Bilirubin 0.7 mg/dL (0.0-0.2) H 02/15/18 21:04 AST 61 Units/L (13-39) H 02/15/18 21:04 Serum Total Protein 6.0 g/dL (6.4-8.9) L 02/15/18 21:04 Globulin 2.3 g/dL (2.4-3.5) L 02/15/18 21:04 Urine Clarity Cloudy (Clear) A 02/16/18 10:39 Urine Protein 30 mg/dL (Neg-Trace) H 02/16/18 10:39 Urine Ketones >=160 mg/dL (Negative) H 02/16/18 10:39 Urine Blood Moderate (Negative) H 02/16/18 10:39 Urine Bilirubin Large (Negative) H 02/16/18 10:39 Urine Urobilinogen 2.0 mg/dL (Normal) H 02/16/18 10:39 Ur Leukocyte Esterase Small (Negative) H 02/16/18 10:39 Urine Microscopic RBC 5-15 per hpf (0-3) H 02/16/18 10:39 Urine Microscopic WBC 3-5 per hpf (0-3) H 02/16/18 10:39 Ur Squamous Epith Cells Many per lpf (None-Few) H 02/16/18 10:39 Urine Bacteria Moderate per hpf (None-Few) H 02/16/18 10:39 Ur Culture Indicated? NO. (NO) A 02/16/18 10:39 Urine Osmolality 267 mOsm/kg (300-1090) L 02/17/18 04:45 Salicylates < 2.5 mg/dL (15.0-30.0) L 02/16/18 10:23 Acetaminophen < 10 mcg/mL (10-20) L 02/16/18 10:23 Ethyl Alcohol 122 mg/dL (Less than 10) H 02/15/18 21:04 - Clinical Findings Intake & Output: Intake & Output 02/17/18 02/17/18 02/18/18 15:59 23:59 07:59 Intake Total 304 / 304 1510 / 1510 2010. Output Total 1450 / 1450 1000 / 1000 1000 / 1000 Balance -1146 / -1146 510 / 510 1011.2 / 1011.2 Weight 130.7 kg Consult Discharge Plan - Plan Referrals: Margarito Cordova MD [Primary Care Provider] -
[2018-02-18] MEDS ORDERED: Dextrose Gel 15 GM/37.5 ML TUBE PO PRN ×2 (08:49)
[2018-02-18] MEDS ORDERED: *HR* LORazepam 2 MG/ML VIAL IVP PRN (08:49)
[2018-02-18] MEDS ORDERED: *HR* Dextrose 50 % in Water (Syg) 50 ML SYRINGE IVP PRN (08:49)
[2018-02-18] MEDS ORDERED: Ondansetron 4 MG/2 ML VIAL IVP PRN (08:49)
[2018-02-18] MEDS ORDERED: Naloxone 0.4 MG/ML INJ IVP PRN (08:49)
[2018-02-18] MEDS ORDERED: D5% in Water 1,000 ML IVC PRN (08:49)
[2018-02-18] MEDS: Nicotine 21 MG PATCH.TD24 TD SCH (09:38)
[2018-02-18] MEDS: Nystatin POWDER 30 GM BOTTLE TP SCH ×2 (09:38→20:27)
[2018-02-18] MEDS: Levofloxacin 750 MG/150 ML 750 MG/150 ML BAG IVPB SCH (11:11)
[2018-02-18] MEDS: *HR* LORazepam 2 MG/ML VIAL IVP PRN ×3 (16:02→23:40)
[2018-02-18] MEDS: *HR* Buprenorphine HCl 2 MG SUBLINGUAL TABLET SL SCH (17:31)
[2018-02-18] MEDS ORDERED: Thiamine (B-1) 100 MG, Folic Acid 1 MG, MVI, adult with vitamin K 10 ML in 0.9 % Sodi... IVPB SCH (18:00)
[2018-02-18] MEDS: *HR* Promethazine 25 MG/ML VIAL IVP PRN (21:57)
[2018-02-18] MEDS ORDERED: Permethrin Cream Rinse 60 ML LIQUID TP ONE (22:40)
[2018-02-19] MEDS: Ipratropium/Albuterol Neb 3 ML IH SCH ×7 (00:25→23:43)
[2018-02-19] MEDS: *HR* LORazepam 2 MG/ML VIAL IVP PRN ×3 (00:50→05:16)
[2018-02-19] MEDS: *HR* Promethazine 25 MG/ML VIAL IVP PRN ×2 (02:52→16:45)
[2018-02-19] MEDS: MethylPREDNISolone 40 MG/ML VIAL IVP SCH ×4 (05:17→23:56)
[2018-02-19] MEDS ORDERED: *HR* Metoprolol 5 MG/5 ML VIAL IVP ONE ×3 (05:18→05:32)
[2018-02-19 05:50] LABS: Basophils % 0.1 %; Eosinophils % 0.1 %; Hematocrit 36.9 % (37.5-50.1); Hemoglobin 13.1 g/dL (12.9-16.9); Immature Granulocytes % 2.4 % (0-4); Lymphocytes # 0.6 K/mcL (0.6-4.6); Lymphocytes % 7.5 %; Mean Corpuscular HGB Conc 35.5 g/dL (31.6-35.5); Mean Corpuscular Hemoglobin 39.9 pg (28.0-33.3); Mean Corpuscular Volume 112.5 fL (83.0-100.0); Mean Platelet Volume 9.9 fL (9.4-12.4); Monocytes # 0.5 K/mcL (0.0-1.3); Neutrophils # 6.3 K/mcL (1.6-8.9); Nucleated Red Blood Cells 0.4 /100 WBC (0); Platelet Count 165 K/mcL (140-400); Red Blood Count 3.28 M/mcL (4.19-5.50); Red Cell Distribution Width 15.2 % (11.5-14.5); Segmented Neutrophils % 82.9 %
[2018-02-19 06:01] LABS: BUN/Creatinine Ratio 17 (6-26); Blood Urea Nitrogen 16 mg/dL (8-23); Calcium 8.5 mg/dL (8.6-10.3); Carbon Dioxide 27 mEq/L (23-29); Chloride 100 mEq/L (98-107); Glucose 179 mg/dL (70-105); Magnesium 1.9 mg/dL (1.6-2.6); Osmolality,Calculated 290 (280-300); Potassium 3.6 mEq/L (3.5-5.1); Sodium 137 mEq/L (136-145); eGFR For Non-African Americans > 60 (> 60)
[2018-02-19 06:06] LABS: Macrocytosis Present (Not Present); Microcytosis Present (Not Present); Platelet Estimate Normal (Normal)
[2018-02-19] MEDS ORDERED: *HR* Metoprolol 5 MG/5 ML VIAL IVP SCH (06:15)
[2018-02-19 06:19] LABS: Phosphorous < 1.0 mg/dL (2.7-4.5)
[2018-02-19] MEDS: *HR* Heparin 5,000 UNIT/ML VIAL SQ SCH ×2 (06:34→16:45)
[2018-02-19] MEDS: Ciprofloxacin HCL Soln 5 ML BOTTLE RIGHT EYE SCH ×4 (06:35→23:48)
[2018-02-19] MEDS: Ciprofloxacin HCL Soln 5 ML BOTTLE LEFT EYE SCH ×4 (06:35→23:48)
[2018-02-19] MEDS: Insulin LISPRO 300 UNITS/3 ML VIAL SQ SCH ×5 (06:35→23:56)
[2018-02-19] MEDS ORDERED: *HR* Metoprolol 5 MG/5 ML VIAL IVP PRN (07:00)
[2018-02-19] MEDS: Nicotine 21 MG PATCH.TD24 TD SCH (08:13)
[2018-02-19 08:18] LABS: ABG Base Excess 6 mEq/L (-2 to 3); ABG HCO3 27 mEq/L (21-27); ABG Oxygen Saturation 92 % (95-98); ABG PCO2 28 mmHg (35-45); ABG PH 7.59 pH Units (7.32-7.45); ABG PO2 53 mmHg (85-104); ABG TCO2 28 mEq/L (20-26); Blood Gas Modality BiLevel; Blood Gas PEEP 16 cm H2O; Blood Gas Pressure Support 6 cm H2O
[2018-02-19] MEDS: Nystatin POWDER 30 GM BOTTLE TP SCH ×2 (08:19→20:56)
--- NOTE | 2018-02-19 08:20 | Internal Med Progress Note ---
Hospitalist Progress Note - Encounter Date of Encounter: 02/19/18 Time of Encounter: 08:17 - Subjective Interval History: Patient seen and examined at bedside this morning. Currently on BiPAP. Agitated overnight and delirious. Ativan did not significantly help according to the nurse or last few hours. Slightly hypoxic according to this morning. - Exam Vitals: Temp Pulse Resp BP Pulse Ox 98.2 F 110 40 131/98 92 02/19/18 07:07 02/19/18 07:07 02/19/18 07:32 02/19/18 07:07 02/19/18 07:32 Exam: General: On bipap, agitate. Obese. Respiratory exam: Distant sound on auscultation. Mild wheezing on Rt >Lt. Occasional rales. Cardiovascular exam: tachycardic, +S1, +S2. no murmur, gallop, rubs. GI/Abdominal exam: Non-tender, Non-distended, normal bowel sounds, soft, no peritoneal signs. Extremities exam: 1+ pedal edema, warm, pulses palpable in b/l lower extremities. no calf tenderness Neurological exam: Moving all extremities Skin exam: chronic dermatitis changes on both feet. - Summary of Assessment and Plan Summary of Assessment and Plan: Alcohol withdrawal - He has been weaned off Precedex. - on CIWA protocol - with Ativan as needed however ativan dose not help - Will restart precedex as patient delirious. - Nutritional support - multimedia services manager consult Hypophosphatemia - replete - Recheck in 6 hr. CHF - Diastolic CHF with CXR with bilateral infiltrates - Start lasix BEN - resolved - likely prerenal Respiratory failure with hypoxia - on bipap - get ABG as mildly hypoxic by sat - likely from CHF and COPD Hyponatremia - likely secondary to chronic alcohol use - Resolved Acid-base disorder - resolved COPD exacerbation - c/w steroids and duonebs - c/w Levaquin for 5 Sleep apnea - Has high pretest probability for sleep-disordered breathing - BiPAP(18/5) at night while in the hospital - will need outpatient follow-up for this - Time Spent with Patient Total time spent is greater than 50% in coordination of care (as documented) at patient's floor/unit and/or counseling patient: Internal Medicine: Result - Labs CBC & Chem 7: 02/19/18 05:34 02/19/18 05:34 Labs: Short CBC 02/19/18 Range/Units 05:34 WBC 7.6 D (4.3-11.1) K/mcL Hgb 13.1 (12.9-16.9) g/dL Hct 36.9 L (37.5-50.1) % Plt Count 165 (140-400) K/mcL Neutrophils # 6.3 (1.6-8.9) K/mcL BMP 02/19/18 05:34 Sodium 137 Potassium 3.6 Chloride 100 Carbon Dioxide 27 BUN 16 Creatinine 0.94 Glucose 179 H Calcium 8.5 L - ABG Interpretation ABG results: ABG ABG pH 7.37 pH Units (7.32-7.45) 02/17/18 05:02 ABG pCO2 23 mmHg (35-45) L 02/17/18 05:02 ABG pO2 92 mmHg (85-104) 02/17/18 05:02 ABG O2 Saturation 97 % (95-98) 02/17/18 05:02 PT/INR, D-dimer PT 11.1 Seconds (9.4-12.1) 02/15/18 21:04 - Impressions Impressions Chest X-Ray 02/18/18 16:57 IMPRESSION: Bilateral parahilar infiltrates could represent aspiration or pulmonary edema D/ / Santhosh Godinez MD / Santhosh Godinez MD Interpreting Provider: Santhosh Godinez MD Consult Discharge Plan - Plan Referrals: Margarito Cordova MD [Primary Care Provider] -
[2018-02-19] MEDS ORDERED: Furosemide 20 MG/2 ML VIAL IVP ONE (08:37)
[2018-02-19] MEDS: Ringers Solution, Lactated 1,000 ML IVC SCH ×2 (09:41→15:24)
[2018-02-19] MEDS: Dexmedetomidine HCl 400 MCG/100 ML MLS IVC SCH ×3 (10:00→20:50)
[2018-02-19 11:20] LABS: ABG Base Excess 6 mEq/L (-2 to 3); ABG HCO3 30 mEq/L (21-27); ABG Oxygen Saturation 91 % (95-98); ABG PCO2 39 mmHg (35-45); ABG PH 7.49 pH Units (7.32-7.45); ABG PO2 57 mmHg (85-104); ABG TCO2 31 mEq/L (20-26)
[2018-02-19] MEDS: BuPROPion XL (24 HR) 150 MG TABLET PO SCH (11:35)
[2018-02-19] MEDS: *HR* Buprenorphine HCl 8 MG TAB.SUBL SL SCH (11:35)
[2018-02-19] MEDS: Levofloxacin 750 MG/150 ML 750 MG/150 ML BAG IVPB SCH (11:48)
[2018-02-19] MEDS: *HR* Buprenorphine HCl 2 MG SUBLINGUAL TABLET SL SCH (18:03)
[2018-02-20] MEDS: Dexmedetomidine HCl 400 MCG/100 ML MLS IVC SCH ×3 (02:18→15:39)
[2018-02-20] MEDS: Ringers Solution, Lactated 1,000 ML IVC SCH (03:52)
[2018-02-20] MEDS: Ipratropium/Albuterol Neb 3 ML IH SCH ×6 (04:06→23:18)
[2018-02-20 04:42] LABS: Basophils % 0.2 %; Hematocrit 33.9 % (37.5-50.1); Hemoglobin 11.7 g/dL (12.9-16.9); Immature Granulocytes % 1.4 % (0-4); Lymphocytes # 0.7 K/mcL (0.6-4.6); Lymphocytes % 12.8 %; Mean Corpuscular HGB Conc 34.5 g/dL (31.6-35.5); Mean Corpuscular Hemoglobin 39.7 pg (28.0-33.3); Mean Corpuscular Volume 114.9 fL (83.0-100.0); Mean Platelet Volume 10.2 fL (9.4-12.4); Monocytes # 0.5 K/mcL (0.0-1.3); Monocytes % 8.1 %; Neutrophils # 4.4 K/mcL (1.6-8.9); Nucleated Red Blood Cells 0.7 /100 WBC (0); Platelet Count 130 K/mcL (140-400); Red Blood Count 2.95 M/mcL (4.19-5.50); Red Cell Distribution Width 15.4 % (11.5-14.5); Segmented Neutrophils % 77.5 %
[2018-02-20 05:05] LABS: BUN/Creatinine Ratio 21 (6-26); Blood Urea Nitrogen 19 mg/dL (8-23); Calcium 7.7 mg/dL (8.6-10.3); Carbon Dioxide 25 mEq/L (23-29); Chloride 103 mEq/L (98-107); Glucose 174 mg/dL (70-105); Osmolality,Calculated 288 (280-300); Potassium 3.7 mEq/L (3.5-5.1); Sodium 136 mEq/L (136-145); eGFR For Non-African Americans > 60 (> 60)
[2018-02-20 05:17] LABS: Anisocytosis 1+ (Not Present)
[2018-02-20 05:18] LABS: Macrocytosis Present (Not Present); Platelet Estimate Slight Decrease (Normal)
[2018-02-20] MEDS: Ciprofloxacin HCL Soln 5 ML BOTTLE RIGHT EYE SCH (06:11)
[2018-02-20] MEDS: Insulin LISPRO 300 UNITS/3 ML VIAL SQ SCH ×4 (06:12→23:15)
[2018-02-20] MEDS: Ciprofloxacin HCL Soln 5 ML BOTTLE LEFT EYE SCH (06:12)
[2018-02-20] MEDS: MethylPREDNISolone 40 MG/ML VIAL IVP SCH ×2 (06:15→17:39)
[2018-02-20] MEDS: *HR* Heparin 5,000 UNIT/ML VIAL SQ SCH ×2 (06:15→17:39)
--- NOTE | 2018-02-20 07:41 | Internal Med Progress Note ---
Hospitalist Progress Note - Encounter Date of Encounter: 02/20/18 Time of Encounter: 07:38 - Subjective Interval History: Patient seen and examined at bedside this morning. Was not on BiPAP overnight. Currently alert and responsive to command but drowsy. Not agitated. On high flow nasal cannula. - Exam Vitals: Temp Pulse Resp BP Pulse Ox 97.7 F 65 25 119/80 93 02/20/18 07:16 02/20/18 07:16 02/20/18 07:16 02/20/18 07:16 02/20/18 07:16 Exam: General: In no distress. obese, on high flow nasal cannula Respiratory exam: Distant sound on auscultation. Occasional rales at bases Cardiovascular exam: RRR, +S1, +S2. no murmur, gallop, rubs. GI/Abdominal exam: Non-tender, Non-distended, normal bowel sounds, soft, no peritoneal signs. Extremities exam: 1+ pedal edema, warm, pulses palpable in b/l lower extremities. no calf tenderness Neurological exam: Moving all extremities. Following commands. Sedated but alert and responsive. Skin exam: chronic dermatitis changes on both feet. - Summary of Assessment and Plan Summary of Assessment and Plan: Alcohol withdrawal - currently on Precedex. Taper off precedex. Monitor for withdrawal - c/w CIWA protocol - with Ativan as needed - c/w home subutex. - Nutritional support - vp celebrity services consult Macrocytic anemia - Likely from alcohol use - No signs of active bleeding. Hypophosphatemia - repleted - monitor for now CHF - Diastolic CHF with CXR with bilateral infiltrates - Given one dose of lasix yesterday. stop IVF and c/w diuresis today. BEN - resolved - likely prerenal - Monitor renal function as given lasix today. Respiratory failure with hypoxia - on bipap yesterday. Currently on high flow. c/w supplemental oxygen. Taper down as tolerated. - likely from CHF and COPD. - c/w diuresis today as well. Hyponatremia - likely secondary to chronic alcohol use - Resolved Acid-base disorder - resolved COPD exacerbation - decreased steroids today and c/w duonebs - c/w Levaquin for 5. Last dose today. Sleep apnea - Has high pretest probability for sleep-disordered breathing - BiPAP(18/5) at night while in the hospital - will need outpatient follow-up for this - Time Spent with Patient Total time spent is greater than 50% in coordination of care (as documented) at patient's floor/unit and/or counseling patient: Internal Medicine: Result - Labs CBC & Chem 7: 02/20/18 04:00 02/20/18 04:00 Labs: Short CBC 02/20/18 Range/Units 04:00 WBC 5.7 (4.3-11.1) K/mcL Hgb 11.7 L (12.9-16.9) g/dL Hct 33.9 L (37.5-50.1) % Plt Count 130 L (140-400) K/mcL Neutrophils # 4.4 (1.6-8.9) K/mcL BMP 02/20/18 04:00 Sodium 136 Potassium 3.7 Chloride 103 Carbon Dioxide 25 BUN 19 Creatinine 0.92 Glucose 174 H Calcium 7.7 L - ABG Interpretation ABG results: ABG ABG pH 7.49 pH Units (7.32-7.45) H 02/19/18 11:17 ABG pCO2 39 mmHg (35-45) 02/19/18 11:17 ABG pO2 57 mmHg (85-104) L 02/19/18 11:17 ABG O2 Saturation 91 % (95-98) L 02/19/18 11:17 PT/INR, D-dimer PT 11.1 Seconds (9.4-12.1) 02/15/18 21:04 Consult Discharge Plan - Plan Referrals: Margarito Cordova MD [Primary Care Provider] -
[2018-02-20] MEDS ORDERED: Potassium Phosphate 44 MEQ in 0.9 % Sodium Chloride 250 ML IVPB ONE (07:42)
[2018-02-20] MEDS: Nicotine 21 MG PATCH.TD24 TD SCH (07:50)
[2018-02-20] MEDS: BuPROPion XL (24 HR) 150 MG TABLET PO SCH (07:52)
[2018-02-20] MEDS: *HR* Buprenorphine HCl 8 MG TAB.SUBL SL SCH (07:52)
[2018-02-20] MEDS: Furosemide 20 MG/2 ML VIAL IVP SCH ×2 (09:56→15:40)
[2018-02-20] MEDS: Nystatin POWDER 30 GM BOTTLE TP SCH ×2 (10:01→20:28)
[2018-02-20] MEDS: Levofloxacin 750 MG/150 ML 750 MG/150 ML BAG IVPB SCH (12:07)
[2018-02-20] MEDS: *HR* LORazepam 2 MG/ML VIAL IVP PRN (15:20)
[2018-02-20] MEDS: *HR* Buprenorphine HCl 2 MG SUBLINGUAL TABLET SL SCH (17:39)
[2018-02-21] MEDS: *HR* LORazepam 2 MG/ML VIAL IVP PRN ×3 (02:18→20:01)
[2018-02-21] MEDS: Dexmedetomidine HCl 400 MCG/100 ML MLS IVC SCH (02:20)
[2018-02-21] MEDS: Ipratropium/Albuterol Neb 3 ML IH SCH ×6 (03:39→23:26)
[2018-02-21] MEDS: Insulin LISPRO 300 UNITS/3 ML VIAL SQ SCH ×3 (05:37→17:38)
[2018-02-21] MEDS: *HR* Heparin 5,000 UNIT/ML VIAL SQ SCH ×2 (05:38→17:38)
[2018-02-21] MEDS: MethylPREDNISolone 40 MG/ML VIAL IVP SCH ×2 (05:38→17:37)
--- NOTE | 2018-02-21 08:10 | Internal Med Progress Note ---
Hospitalist Progress Note - Encounter Date of Encounter: 02/21/18 Time of Encounter: 08:00 - Exam Vitals: Temp Pulse Resp BP Pulse Ox 98.6 F 71 12 95/66 97 02/21/18 02:59 02/21/18 02:59 02/21/18 03:39 02/21/18 02:59 02/21/18 03:39 Exam: General: In no distress. obese, on high flow nasal cannula Respiratory exam: Distant sound on auscultation. Occasional rales at bases Cardiovascular exam: RRR, +S1, +S2. no murmur, gallop, rubs. GI/Abdominal exam: Non-tender, Non-distended, normal bowel sounds, soft, no peritoneal signs. Extremities exam: 1+ pedal edema, warm, pulses palpable in b/l lower extremities. no calf tenderness Neurological exam: Moving all extremities. Following commands. Sedated but alert and responsive. Skin exam: chronic dermatitis changes on both feet. - Assessment and Plan (1) Acute respiratory failure with hypoxia Current Visit: Yes Status: Acute Assessment and Plan: Likely secondary to acute worsening of chronic diastolic cHF, COPD exacerbation and sleep apnea Continue BIPAP, nebs, steroids and antibiotics Continue BID lasix. PT consulted for strengthening (2) Acute on chronic diastolic (congestive) heart failure Current Visit: No Status: Acute Assessment and Plan: On lasix BID. Monitor ins and outs (3) Alcohol withdrawal Current Visit: Yes Status: Acute Assessment and Plan: On precedex drip. Will wean off today Continue CIWA protocol wih ativan prn (4) COPD exacerbation Current Visit: Yes Status: Acute Assessment and Plan: On nebs, steroids and antibiotics (5) BEN (acute kidney injury) Current Visit: Yes Status: Acute Assessment and Plan: Resolved. Monitor creatinine with lasix DVT Prophylaxis: On heparin - Time Spent with Patient Total time spent is greater than 50% in coordination of care (as documented) at patient's floor/unit and/or counseling patient: Internal Medicine: Result - Labs CBC & Chem 7: 02/20/18 04:00 02/20/18 04:00 - ABG Interpretation ABG results: ABG ABG pH 7.49 pH Units (7.32-7.45) H 02/19/18 11:17 ABG pCO2 39 mmHg (35-45) 02/19/18 11:17 ABG pO2 57 mmHg (85-104) L 02/19/18 11:17 ABG O2 Saturation 91 % (95-98) L 02/19/18 11:17 PT/INR, D-dimer PT 11.1 Seconds (9.4-12.1) 02/15/18 21:04 Consult Discharge Plan - Plan Referrals: Margarito Cordova MD [Primary Care Provider] - (Per Dr. Cordova's office the patient has to make his own follow up appointment) (3) Alcohol withdrawal Qualifiers: Complication of substance-induced condition: uncomplicated Qualified Code(s): F10.230 - Alcohol dependence with withdrawal, uncomplicated
[2018-02-21] MEDS: Nicotine 21 MG PATCH.TD24 TD SCH (09:22)
[2018-02-21] MEDS: Nystatin POWDER 30 GM BOTTLE TP SCH ×2 (09:22→20:09)
[2018-02-21] MEDS: *HR* Buprenorphine HCl 8 MG TAB.SUBL SL SCH (09:24)
[2018-02-21] MEDS: BuPROPion XL (24 HR) 150 MG TABLET PO SCH (09:24)
[2018-02-21] MEDS: Furosemide 40 MG/4 ML VIAL IVP SCH ×2 (11:08→17:37)
[2018-02-21] MEDS: Levofloxacin 750 MG/150 ML 750 MG/150 ML BAG IVPB SCH (11:08)
[2018-02-21] MEDS: *HR* Buprenorphine HCl 2 MG SUBLINGUAL TABLET SL SCH (17:38)
[2018-02-22] MEDS: Insulin LISPRO 300 UNITS/3 ML VIAL SQ SCH ×5 (00:20→21:45)
[2018-02-22] MEDS: *HR* LORazepam 2 MG/ML VIAL IVP PRN ×3 (00:26→13:48)
[2018-02-22] MEDS: Ipratropium/Albuterol Neb 3 ML IH SCH ×6 (03:45→23:15)
[2018-02-22] MEDS: *HR* Heparin 5,000 UNIT/ML VIAL SQ SCH ×2 (05:41→17:11)
[2018-02-22] MEDS: MethylPREDNISolone 40 MG/ML VIAL IVP SCH (05:41)
--- NOTE | 2018-02-22 07:50 | Internal Med Progress Note ---
Hospitalist Progress Note - Encounter Date of Encounter: 02/22/18 Time of Encounter: 07:50 - Exam Vitals: Temp Pulse Resp BP Pulse Ox 98.8 F 104 16 126/81 94 02/22/18 06:57 02/22/18 06:57 02/22/18 07:22 02/22/18 06:57 02/22/18 07:22 Exam: General: In no distress. obese, on high flow nasal cannula Respiratory exam: Distant sound on auscultation. Occasional rales at bases Cardiovascular exam: RRR, +S1, +S2. no murmur, gallop, rubs. GI/Abdominal exam: Non-tender, Non-distended, normal bowel sounds, soft, no peritoneal signs. Extremities exam: 1+ pedal edema, warm, pulses palpable in b/l lower extremities. no calf tenderness Neurological exam: Moving all extremities. Following commands. Sedated but alert and responsive. Skin exam: chronic dermatitis changes on both feet. - Assessment and Plan (1) Acute respiratory failure with hypoxia Current Visit: Yes Status: Acute Assessment and Plan: Likely secondary to acute worsening of chronic diastolic cHF, COPD exacerbation and sleep apnea Continue BIPAP, nebs, steroids and antibiotics Continue BID lasix. PT consulted for strengthening (2) Acute on chronic diastolic (congestive) heart failure Current Visit: No Status: Acute Assessment and Plan: On lasix BID. Monitor ins and outs (3) Alcohol withdrawal Current Visit: Yes Status: Acute Assessment and Plan: Precedex drip weaned off Continue CIWA protocol wih ativan prn (4) COPD exacerbation Current Visit: Yes Status: Acute Assessment and Plan: On nebs, steroids and antibiotics (5) BEN (acute kidney injury) Current Visit: Yes Status: Acute Assessment and Plan: Resolved. Monitor creatinine with lasix DVT Prophylaxis: On heparin - Time Spent with Patient Total time spent is greater than 50% in coordination of care (as documented) at patient's floor/unit and/or counseling patient: Internal Medicine: Result - Labs CBC & Chem 7: 02/22/18 09:17 02/22/18 09:17 - ABG Interpretation ABG results: ABG ABG pH 7.49 pH Units (7.32-7.45) H 02/19/18 11:17 ABG pCO2 39 mmHg (35-45) 02/19/18 11:17 ABG pO2 57 mmHg (85-104) L 02/19/18 11:17 ABG O2 Saturation 91 % (95-98) L 02/19/18 11:17 PT/INR, D-dimer PT 11.1 Seconds (9.4-12.1) 02/15/18 21:04 Consult Discharge Plan - Plan Referrals: Margarito Cordova MD [Primary Care Provider] - (Per Dr. Cordova's office the patient has to make his own follow up appointment) (3) Alcohol withdrawal Qualifiers: Complication of substance-induced condition: uncomplicated Qualified Code(s): F10.230 - Alcohol dependence with withdrawal, uncomplicated
[2018-02-22] MEDS: *HR* Buprenorphine HCl 8 MG TAB.SUBL SL SCH (09:36)
[2018-02-22] MEDS: BuPROPion XL (24 HR) 150 MG TABLET PO SCH (09:36)
[2018-02-22] MEDS: predniSONE 20 MG TABLET PO SCH (09:37)
[2018-02-22 09:38] LABS: Basophils % 0.2 %; Hematocrit 36.6 % (37.5-50.1); Hemoglobin 12.6 g/dL (12.9-16.9); Immature Granulocytes % 2.1 % (0-4); Lymphocytes # 0.5 K/mcL (0.6-4.6); Lymphocytes % 8.6 %; Mean Corpuscular HGB Conc 34.4 g/dL (31.6-35.5); Mean Corpuscular Hemoglobin 39.5 pg (28.0-33.3); Mean Corpuscular Volume 114.7 fL (83.0-100.0); Mean Platelet Volume 9.8 fL (9.4-12.4); Monocytes # 0.6 K/mcL (0.0-1.3); Neutrophils # 4.8 K/mcL (1.6-8.9); Platelet Count 169 K/mcL (140-400); Red Blood Count 3.19 M/mcL (4.19-5.50); Red Cell Distribution Width 15.6 % (11.5-14.5); Segmented Neutrophils % 79.1 %
[2018-02-22] MEDS: Nicotine 21 MG PATCH.TD24 TD SCH (09:38)
[2018-02-22] MEDS: Furosemide 40 MG/4 ML VIAL IVP SCH ×2 (09:39→17:11)
[2018-02-22] MEDS: Nystatin POWDER 30 GM BOTTLE TP SCH ×2 (09:40→21:46)
[2018-02-22 09:52] LABS: BUN/Creatinine Ratio 21 (6-26); Blood Urea Nitrogen 21 mg/dL (8-23); Calcium 8.4 mg/dL (8.6-10.3); Carbon Dioxide 31 mEq/L (23-29); Chloride 96 mEq/L (98-107); Glucose 175 mg/dL (70-105); Osmolality,Calculated 285 (280-300); Potassium 3.5 mEq/L (3.5-5.1); Sodium 134 mEq/L (136-145); eGFR For Non-African Americans > 60 (> 60)
[2018-02-22 10:07] LABS: Macrocytosis Present (Not Present)
[2018-02-22] MEDS: Levofloxacin 750 MG/150 ML 750 MG/150 ML BAG IVPB SCH (12:10)
[2018-02-22] MEDS: *HR* Buprenorphine HCl 2 MG SUBLINGUAL TABLET SL SCH (17:11)
[2018-02-23] MEDS: *HR* LORazepam 2 MG/ML VIAL IVP PRN ×2 (00:25→08:15)
[2018-02-23] MEDS: Ipratropium/Albuterol Neb 3 ML IH SCH ×6 (04:25→23:12)
[2018-02-23] MEDS: *HR* Heparin 5,000 UNIT/ML VIAL SQ SCH ×2 (05:14→16:44)
[2018-02-23 05:37] LABS: Basophils % 0.2 %; Eosinophils % 0.3 %; Hematocrit 32.4 % (37.5-50.1); Hemoglobin 11.4 g/dL (12.9-16.9); Immature Granulocytes % 1.5 % (0-4); Lymphocytes # 1.3 K/mcL (0.6-4.6); Lymphocytes % 22.4 %; Mean Corpuscular HGB Conc 35.2 g/dL (31.6-35.5); Mean Corpuscular Hemoglobin 39.9 pg (28.0-33.3); Mean Corpuscular Volume 113.3 fL (83.0-100.0); Mean Platelet Volume 9.8 fL (9.4-12.4); Monocytes # 1.1 K/mcL (0.0-1.3); Monocytes % 19.3 %; Neutrophils # 3.3 K/mcL (1.6-8.9); Platelet Count 159 K/mcL (140-400); Red Blood Count 2.86 M/mcL (4.19-5.50); Red Cell Distribution Width 15.3 % (11.5-14.5); Segmented Neutrophils % 56.3 %
[2018-02-23 05:54] LABS: BUN/Creatinine Ratio 24 (6-26); Blood Urea Nitrogen 23 mg/dL (8-23); Calcium 8.7 mg/dL (8.6-10.3); Carbon Dioxide 33 mEq/L (23-29); Chloride 95 mEq/L (98-107); Glucose 106 mg/dL (70-105); Osmolality,Calculated 282 (280-300); Potassium 3.1 mEq/L (3.5-5.1); Sodium 134 mEq/L (136-145); eGFR For Non-African Americans > 60 (> 60)
[2018-02-23 05:55] LABS: Magnesium 1.7 mg/dL (1.6-2.6); Phosphorous 3.3 mg/dL (2.7-4.5)
[2018-02-23 06:01] LABS: Macrocytosis Present (Not Present); Platelet Estimate Slight Decrease (Normal)
[2018-02-23] MEDS: Insulin LISPRO 300 UNITS/3 ML VIAL SQ SCH ×4 (07:45→20:26)
[2018-02-23] MEDS: Furosemide 40 MG/4 ML VIAL IVP SCH ×2 (07:55→16:44)
[2018-02-23] MEDS: Potassium Chloride Elixir 20 MEQ/15 ML UDC PO SCH ×2 (07:55→11:52)
[2018-02-23] MEDS: BuPROPion XL (24 HR) 150 MG TABLET PO SCH (07:56)
[2018-02-23] MEDS: Nicotine 21 MG PATCH.TD24 TD SCH (07:56)
[2018-02-23] MEDS: predniSONE 20 MG TABLET PO SCH (07:56)
[2018-02-23] MEDS: *HR* Buprenorphine HCl 8 MG TAB.SUBL SL SCH (07:56)
[2018-02-23] MEDS: Nystatin POWDER 30 GM BOTTLE TP SCH ×2 (08:12→20:26)
[2018-02-23] MEDS ORDERED: levoFLOXacin 750 MG TABLET PO SCH (09:00)
--- NOTE | 2018-02-23 15:24 | Internal Med Progress Note ---
Hospitalist Progress Note - Encounter Date of Encounter: 02/23/18 Time of Encounter: 15:00 - Exam Vitals: Temp Pulse Resp BP Pulse Ox 97.9 F 91 18 113/64 97 02/23/18 11:34 02/23/18 11:34 02/23/18 11:37 02/23/18 11:34 02/23/18 11:37 Exam: General: In no distress. obese, on high flow nasal cannula Respiratory exam: Distant sound on auscultation. Occasional rales at bases Cardiovascular exam: RRR, +S1, +S2. no murmur, gallop, rubs. GI/Abdominal exam: Non-tender, Non-distended, normal bowel sounds, soft, no peritoneal signs. Extremities exam: 1+ pedal edema, warm, pulses palpable in b/l lower extremities. no calf tenderness Neurological exam: Moving all extremities. Following commands. Sedated but alert and responsive. Skin exam: chronic dermatitis changes on both feet. - Assessment and Plan (1) Acute respiratory failure with hypoxia Current Visit: Yes Status: Acute Assessment and Plan: Likely secondary to acute worsening of chronic diastolic cHF, COPD exacerbation and sleep apnea Continue BIPAP, nebs, steroids and antibiotics Continue BID lasix. Edema improved. PT consulted for strengthening (2) Acute on chronic diastolic (congestive) heart failure Current Visit: No Status: Acute Assessment and Plan: On lasix BID. Monitor ins and outs (3) Alcohol withdrawal Current Visit: Yes Status: Acute Assessment and Plan: Precedex drip weaned off Continue CIWA protocol with ativan prn Improved (4) COPD exacerbation Current Visit: Yes Status: Acute Assessment and Plan: On nebs, steroids and antibiotics Steroids weaned to po (5) BEN (acute kidney injury) Current Visit: Yes Status: Acute Assessment and Plan: Resolved. Monitor creatinine with lasix DVT Prophylaxis: On heparin - Time Spent with Patient Total time spent is greater than 50% in coordination of care (as documented) at patient's floor/unit and/or counseling patient: Internal Medicine: Result - Labs CBC & Chem 7: 02/23/18 04:00 02/23/18 04:00 Labs: Short CBC 02/23/18 Range/Units 04:00 WBC 5.9 (4.3-11.1) K/mcL Hgb 11.4 L (12.9-16.9) g/dL Hct 32.4 L (37.5-50.1) % Plt Count 159 (140-400) K/mcL Neutrophils # 3.3 (1.6-8.9) K/mcL BMP 02/23/18 04:00 Sodium 134 L Potassium 3.1 L Chloride 95 L Carbon Dioxide 33 H BUN 23 Creatinine 0.95 Glucose 106 H Calcium 8.7 - ABG Interpretation ABG results: ABG ABG pH 7.49 pH Units (7.32-7.45) H 02/19/18 11:17 ABG pCO2 39 mmHg (35-45) 02/19/18 11:17 ABG pO2 57 mmHg (85-104) L 02/19/18 11:17 ABG O2 Saturation 91 % (95-98) L 02/19/18 11:17 PT/INR, D-dimer PT 11.1 Seconds (9.4-12.1) 02/15/18 21:04 Consult Discharge Plan - Plan Referrals: Margarito Cordova MD [Primary Care Provider] - (Per Dr. Cordova's office the patient has to make his own follow up appointment) (3) Alcohol withdrawal Qualifiers: Complication of substance-induced condition: uncomplicated Qualified Code(s): F10.230 - Alcohol dependence with withdrawal, uncomplicated
[2018-02-23] MEDS: *HR* Buprenorphine HCl 2 MG SUBLINGUAL TABLET SL SCH (16:44)
[2018-02-24 04:05] LABS: Basophils % 0.1 %; Eosinophils % 0.4 %; Hematocrit 35.5 % (37.5-50.1); Hemoglobin 12.2 g/dL (12.9-16.9); Immature Granulocytes % 1.1 % (0-4); Lymphocytes # 1.3 K/mcL (0.6-4.6); Lymphocytes % 18.1 %; Mean Corpuscular HGB Conc 34.4 g/dL (31.6-35.5); Mean Corpuscular Hemoglobin 39.2 pg (28.0-33.3); Mean Corpuscular Volume 114.1 fL (83.0-100.0); Mean Platelet Volume 10.1 fL (9.4-12.4); Monocytes % 14.2 %; Neutrophils # 4.8 K/mcL (1.6-8.9); Platelet Count 182 K/mcL (140-400); Red Blood Count 3.11 M/mcL (4.19-5.50); Red Cell Distribution Width 15.2 % (11.5-14.5); Segmented Neutrophils % 66.1 %
[2018-02-24] MEDS: Ipratropium/Albuterol Neb 3 ML IH SCH ×6 (04:11→23:06)
[2018-02-24 04:28] LABS: BUN/Creatinine Ratio 23 (6-26); Blood Urea Nitrogen 24 mg/dL (8-23); Calcium 9.1 mg/dL (8.6-10.3); Carbon Dioxide 31 mEq/L (23-29); Chloride 94 mEq/L (98-107); Glucose 103 mg/dL (70-105); Osmolality,Calculated 284 (280-300); Potassium 3.4 mEq/L (3.5-5.1); Sodium 135 mEq/L (136-145); eGFR For Non-African Americans > 60 (> 60)
[2018-02-24 04:29] LABS: Magnesium 1.9 mg/dL (1.6-2.6); Phosphorous 4.1 mg/dL (2.7-4.5)
[2018-02-24 04:34] LABS: Platelet Estimate Normal (Normal)
[2018-02-24 04:35] LABS: Macrocytosis Present (Not Present)
[2018-02-24] MEDS: *HR* Heparin 5,000 UNIT/ML VIAL SQ SCH ×2 (05:19→17:38)
[2018-02-24 06:54] LABS: Estimated Average Glucose 108 mg/dl; Hemoglobin A1C 5.4 %
[2018-02-24] MEDS: Insulin LISPRO 300 UNITS/3 ML VIAL SQ SCH ×4 (08:11→22:45)
--- NOTE | 2018-02-24 08:15 | Internal Med Progress Note ---
Hospitalist Progress Note - Encounter Date of Encounter: 02/24/18 Time of Encounter: 08:15 - Exam Vitals: Temp Pulse Resp BP Pulse Ox 98.0 F 97 18 122/73 94 02/24/18 06:59 02/24/18 06:59 02/24/18 07:27 02/24/18 06:59 02/24/18 07:27 Exam: General: In no distress. obese, on high flow nasal cannula Respiratory exam: Distant sound on auscultation. Occasional rales at bases Cardiovascular exam: RRR, +S1, +S2. no murmur, gallop, rubs. GI/Abdominal exam: Non-tender, Non-distended, normal bowel sounds, soft, no peritoneal signs. Extremities exam: 1+ pedal edema, warm, pulses palpable in b/l lower extremities. no calf tenderness Neurological exam: Moving all extremities. Following commands. Sedated but alert and responsive. Skin exam: chronic dermatitis changes on both feet. - Assessment and Plan (1) Acute respiratory failure with hypoxia Current Visit: Yes Status: Acute Assessment and Plan: Likely secondary to acute worsening of chronic diastolic cHF, COPD exacerbation and sleep apnea Continue BIPAP, nebs, steroids and antibiotics Continue BID lasix. Edema improved. PT consulted for strengthening Plan for discharge to rehab (2) Acute on chronic diastolic (congestive) heart failure Current Visit: No Status: Acute Assessment and Plan: On lasix BID. Monitor ins and outs (3) Alcohol withdrawal Current Visit: Yes Status: Acute Assessment and Plan: Precedex drip weaned off Continue CIWA protocol with ativan prn Improved. still has tremors. Monitor (4) COPD exacerbation Current Visit: Yes Status: Acute Assessment and Plan: On nebs, steroids and antibiotics Steroids weaned to po (5) BEN (acute kidney injury) Current Visit: Yes Status: Acute Assessment and Plan: Resolved. Monitor creatinine with lasix DVT Prophylaxis: On heparin - Time Spent with Patient Total time spent is greater than 50% in coordination of care (as documented) at patient's floor/unit and/or counseling patient: Internal Medicine: Result - Labs CBC & Chem 7: 02/24/18 03:15 02/24/18 03:15 Labs: Short CBC 02/24/18 Range/Units 03:15 WBC 7.3 (4.3-11.1) K/mcL Hgb 12.2 L (12.9-16.9) g/dL Hct 35.5 L (37.5-50.1) % Plt Count 182 (140-400) K/mcL Neutrophils # 4.8 (1.6-8.9) K/mcL BMP 02/24/18 03:15 Sodium 135 L Potassium 3.4 L Chloride 94 L Carbon Dioxide 31 H BUN 24 H Creatinine 1.04 Glucose 103 Calcium 9.1 - ABG Interpretation ABG results: ABG ABG pH 7.49 pH Units (7.32-7.45) H 02/19/18 11:17 ABG pCO2 39 mmHg (35-45) 02/19/18 11:17 ABG pO2 57 mmHg (85-104) L 02/19/18 11:17 ABG O2 Saturation 91 % (95-98) L 02/19/18 11:17 PT/INR, D-dimer PT 11.1 Seconds (9.4-12.1) 02/15/18 21:04 Consult Discharge Plan - Plan Referrals: Margarito Cordova MD [Primary Care Provider] - (Per Dr. Cordova's office the patient has to make his own follow up appointment Patient is going to [facility]) (3) Alcohol withdrawal Qualifiers: Complication of substance-induced condition: uncomplicated Qualified Code(s): F10.230 - Alcohol dependence with withdrawal, uncomplicated
[2018-02-24] MEDS: *HR* Buprenorphine HCl 8 MG TAB.SUBL SL SCH (08:23)
[2018-02-24] MEDS: Nicotine 21 MG PATCH.TD24 TD SCH (08:24)
[2018-02-24] MEDS: Nystatin POWDER 30 GM BOTTLE TP SCH ×2 (08:24→22:45)
[2018-02-24] MEDS: Furosemide 40 MG/4 ML VIAL IVP SCH ×2 (08:24→16:41)
[2018-02-24] MEDS: BuPROPion XL (24 HR) 150 MG TABLET PO SCH (08:24)
[2018-02-24] MEDS: predniSONE 10 MG TABLET PO SCH (08:24)
[2018-02-24] MEDS: Potassium Chloride Elixir 20 MEQ/15 ML UDC PO SCH ×2 (10:47→10:50)
[2018-02-24] MEDS: *HR* LORazepam 2 MG/ML VIAL IVP PRN (12:25)
[2018-02-24] MEDS ORDERED: Potassium Chloride Elixir 20 MEQ/15 ML UDC PO ONE (14:28)
[2018-02-24] MEDS: *HR* Buprenorphine HCl 2 MG SUBLINGUAL TABLET SL SCH (17:38)
[2018-02-25] MEDS: Ipratropium/Albuterol Neb 3 ML IH SCH ×5 (03:21→20:31)
[2018-02-25] MEDS: Mag Hydrox/Al Hydrox/Simeth 30 ML UDC PO PRN (03:25)
[2018-02-25] MEDS: Acetaminophen 325 MG TABLET PO PRN (03:25)
[2018-02-25] MEDS: *HR* LORazepam 2 MG/ML VIAL IVP PRN (03:26)
[2018-02-25 04:03] LABS: Basophils % 0.1 %; Eosinophils % 0.5 %; Hematocrit 32.7 % (37.5-50.1); Hemoglobin 11.4 g/dL (12.9-16.9); Lymphocytes # 1.7 K/mcL (0.6-4.6); Lymphocytes % 21.1 %; Mean Corpuscular HGB Conc 34.9 g/dL (31.6-35.5); Mean Corpuscular Hemoglobin 39.4 pg (28.0-33.3); Mean Corpuscular Volume 113.1 fL (83.0-100.0); Mean Platelet Volume 9.8 fL (9.4-12.4); Monocytes # 0.9 K/mcL (0.0-1.3); Neutrophils # 5.1 K/mcL (1.6-8.9); Platelet Count 186 K/mcL (140-400); Red Blood Count 2.89 M/mcL (4.19-5.50); Red Cell Distribution Width 14.8 % (11.5-14.5); Segmented Neutrophils % 65.3 %
[2018-02-25 04:20] LABS: BUN/Creatinine Ratio 21 (6-26); Blood Urea Nitrogen 22 mg/dL (8-23); Calcium 9.3 mg/dL (8.6-10.3); Carbon Dioxide 31 mEq/L (23-29); Chloride 97 mEq/L (98-107); Glucose 105 mg/dL (70-105); Osmolality,Calculated 286 (280-300); Potassium 4.1 mEq/L (3.5-5.1); Sodium 136 mEq/L (136-145); eGFR For Non-African Americans > 60 (> 60)
[2018-02-25 04:21] LABS: Magnesium 1.8 mg/dL (1.6-2.6); Phosphorous 4.8 mg/dL (2.7-4.5)
[2018-02-25 04:45] LABS: Anisocytosis 1+ (Not Present); Macrocytosis Present (Not Present); Platelet Estimate Normal (Normal)
[2018-02-25] MEDS: *HR* Heparin 5,000 UNIT/ML VIAL SQ SCH ×2 (06:30→17:45)
--- NOTE | 2018-02-25 08:04 | Internal Med Progress Note ---
Hospitalist Progress Note - Encounter Date of Encounter: 02/25/18 Time of Encounter: 08:00 - Exam Vitals: Temp Pulse Resp BP Pulse Ox 98.1 F 94 16 96/62 96 02/25/18 07:48 02/25/18 07:48 02/25/18 07:48 02/25/18 07:48 02/25/18 07:48 Exam: General: In no distress. obese, on high flow nasal cannula Respiratory exam: Distant sound on auscultation. Occasional rales at bases Cardiovascular exam: RRR, +S1, +S2. no murmur, gallop, rubs. GI/Abdominal exam: Non-tender, Non-distended, normal bowel sounds, soft, no peritoneal signs. Extremities exam: 1+ pedal edema, warm, pulses palpable in b/l lower extremities. no calf tenderness Neurological exam: Moving all extremities. Following commands. Sedated but alert and responsive. Skin exam: chronic dermatitis changes on both feet. - Assessment and Plan (1) Acute respiratory failure with hypoxia Current Visit: Yes Status: Acute Assessment and Plan: Likely secondary to acute worsening of chronic diastolic cHF, COPD exacerbation and sleep apnea Continue BIPAP, nebs, steroids and antibiotics Continue BID lasix. Edema improved. PT consulted for strengthening Plan for discharge to rehab (2) Acute on chronic diastolic (congestive) heart failure Current Visit: No Status: Acute Assessment and Plan: On lasix BID. Monitor ins and outs (3) Alcohol withdrawal Current Visit: Yes Status: Acute Assessment and Plan: Precedex drip weaned off Continue CIWA protocol with ativan prn Improved. Severe alcohol withdrawal with continuing tremors. Will start on round the clock serax Ativan as needed (4) COPD exacerbation Current Visit: Yes Status: Acute Assessment and Plan: On nebs, steroids and antibiotics Steroids weaned to po (5) BEN (acute kidney injury) Current Visit: Yes Status: Acute Assessment and Plan: Resolved. Monitor creatinine with lasix DVT Prophylaxis: On heparin - Time Spent with Patient Total time spent is greater than 50% in coordination of care (as documented) at patient's floor/unit and/or counseling patient: Internal Medicine: Result - Labs CBC & Chem 7: 02/25/18 03:35 02/25/18 03:35 Labs: Short CBC 02/25/18 Range/Units 03:35 WBC 7.8 (4.3-11.1) K/mcL Hgb 11.4 L (12.9-16.9) g/dL Hct 32.7 L (37.5-50.1) % Plt Count 186 (140-400) K/mcL Neutrophils # 5.1 (1.6-8.9) K/mcL BMP 02/25/18 03:35 Sodium 136 Potassium 4.1 Chloride 97 L Carbon Dioxide 31 H BUN 22 Creatinine 1.05 Glucose 105 Calcium 9.3 - ABG Interpretation ABG results: ABG ABG pH 7.49 pH Units (7.32-7.45) H 02/19/18 11:17 ABG pCO2 39 mmHg (35-45) 02/19/18 11:17 ABG pO2 57 mmHg (85-104) L 02/19/18 11:17 ABG O2 Saturation 91 % (95-98) L 02/19/18 11:17 PT/INR, D-dimer PT 11.1 Seconds (9.4-12.1) 02/15/18 21:04 Consult Discharge Plan - Plan Referrals: Margarito Cordova MD [Primary Care Provider] - (Per Dr. Cordova's office the patient has to make his own follow up appointment Patient is going to [facility]) (3) Alcohol withdrawal Qualifiers: Complication of substance-induced condition: uncomplicated Qualified Code(s): F10.230 - Alcohol dependence with withdrawal, uncomplicated
[2018-02-25] MEDS: Insulin LISPRO 300 UNITS/3 ML VIAL SQ SCH ×4 (08:07→20:23)
[2018-02-25] MEDS: Nicotine 21 MG PATCH.TD24 TD SCH (08:45)
[2018-02-25] MEDS: *HR* Buprenorphine HCl 8 MG TAB.SUBL SL SCH (08:45)
[2018-02-25] MEDS: Furosemide 40 MG/4 ML VIAL IVP SCH ×2 (08:46→17:44)
[2018-02-25] MEDS: predniSONE 10 MG TABLET PO SCH (08:46)
[2018-02-25] MEDS: BuPROPion XL (24 HR) 150 MG TABLET PO SCH (08:46)
[2018-02-25] MEDS: Nystatin POWDER 30 GM BOTTLE TP SCH ×2 (08:47→20:24)
[2018-02-25] MEDS: *HR* Buprenorphine HCl 2 MG SUBLINGUAL TABLET SL SCH (17:45)
[2018-02-26] MEDS: Ipratropium/Albuterol Neb 3 ML IH SCH ×7 (00:06→23:45)
[2018-02-26] MEDS: Acetaminophen 325 MG TABLET PO PRN (03:47)
[2018-02-26 04:44] LABS: Basophils % 0.1 %; Eosinophils # 0.1 K/mcL (0.0-0.6); Eosinophils % 0.7 %; Hematocrit 32.5 % (37.5-50.1); Hemoglobin 11.3 g/dL (12.9-16.9); Lymphocytes # 2.1 K/mcL (0.6-4.6); Lymphocytes % 25.8 %; Mean Corpuscular HGB Conc 34.8 g/dL (31.6-35.5); Mean Corpuscular Hemoglobin 39.9 pg (28.0-33.3); Mean Corpuscular Volume 114.8 fL (83.0-100.0); Mean Platelet Volume 9.7 fL (9.4-12.4); Monocytes % 12.2 %; Neutrophils # 4.9 K/mcL (1.6-8.9); Platelet Count 210 K/mcL (140-400); Red Blood Count 2.83 M/mcL (4.19-5.50); Red Cell Distribution Width 14.6 % (11.5-14.5); Segmented Neutrophils % 60.2 %
[2018-02-26 04:53] LABS: BUN/Creatinine Ratio 20 (6-26); Blood Urea Nitrogen 23 mg/dL (8-23); Calcium 9.1 mg/dL (8.6-10.3); Carbon Dioxide 29 mEq/L (23-29); Chloride 92 mEq/L (98-107); Glucose 97 mg/dL (70-105); Osmolality,Calculated 274 (280-300); Potassium 3.9 mEq/L (3.5-5.1); Sodium 130 mEq/L (136-145); eGFR For Non-African Americans > 60 (> 60)
[2018-02-26 04:54] LABS: Magnesium 1.9 mg/dL (1.6-2.6); Phosphorous 5.5 mg/dL (2.7-4.5)
[2018-02-26] MEDS: *HR* Heparin 5,000 UNIT/ML VIAL SQ SCH ×2 (05:04→17:42)
[2018-02-26 05:41] LABS: Macrocytosis Present (Not Present); Platelet Estimate Normal (Normal)
[2018-02-26 05:42] LABS: Anisocytosis 1+ (Not Present)
[2018-02-26] MEDS: Insulin LISPRO 300 UNITS/3 ML VIAL SQ SCH ×4 (08:06→21:13)
--- NOTE | 2018-02-26 08:09 | Internal Med Progress Note ---
Hospitalist Progress Note - Encounter Date of Encounter: 02/26/18 Time of Encounter: 08:00 - Exam Vitals: Temp Pulse Resp BP Pulse Ox 98.3 F 98 20 110/61 95 02/26/18 07:56 02/26/18 07:56 02/26/18 07:56 02/26/18 07:56 02/26/18 07:56 Exam: General: In no distress. obese, on high flow nasal cannula Respiratory exam: Distant sound on auscultation. Occasional rales at bases Cardiovascular exam: RRR, +S1, +S2. no murmur, gallop, rubs. GI/Abdominal exam: Non-tender, Non-distended, normal bowel sounds, soft, no peritoneal signs. Extremities exam: 1+ pedal edema, warm, pulses palpable in b/l lower extremities. no calf tenderness Neurological exam: Moving all extremities. Following commands. Sedated but alert and responsive. Skin exam: chronic dermatitis changes on both feet. - Assessment and Plan (1) Acute respiratory failure with hypoxia Current Visit: Yes Status: Acute Assessment and Plan: Likely secondary to acute worsening of chronic diastolic cHF, COPD exacerbation and sleep apnea Continue BIPAP, nebs, steroids and antibiotics Continue BID lasix. Edema improved. PT consulted for strengthening Plan for discharge to rehab once preauth is approved by insurance (2) Acute on chronic diastolic (congestive) heart failure Current Visit: No Status: Acute Assessment and Plan: On lasix BID. Monitor ins and outs (3) Alcohol withdrawal Current Visit: Yes Status: Acute Assessment and Plan: Precedex drip weaned off Continue CIWA protocol with ativan prn Improved. Severe alcohol withdrawal with continuing tremors. Will start on round the clock serax Ativan as needed (4) COPD exacerbation Current Visit: Yes Status: Acute Assessment and Plan: On nebs, steroids and antibiotics Steroids weaned to po (5) BEN (acute kidney injury) Current Visit: Yes Status: Acute Assessment and Plan: Resolved. Monitor creatinine with lasix DVT Prophylaxis: On heparin - Time Spent with Patient Total time spent is greater than 50% in coordination of care (as documented) at patient's floor/unit and/or counseling patient: Internal Medicine: Result - Labs CBC & Chem 7: 02/26/18 04:29 02/26/18 04:29 Labs: Short CBC 02/26/18 Range/Units 04:29 WBC 8.2 (4.3-11.1) K/mcL Hgb 11.3 L (12.9-16.9) g/dL Hct 32.5 L (37.5-50.1) % Plt Count 210 (140-400) K/mcL Neutrophils # 4.9 (1.6-8.9) K/mcL BMP 02/26/18 04:29 Sodium 130 L Potassium 3.9 Chloride 92 L Carbon Dioxide 29 BUN 23 Creatinine 1.13 Glucose 97 Calcium 9.1 - ABG Interpretation ABG results: ABG ABG pH 7.49 pH Units (7.32-7.45) H 02/19/18 11:17 ABG pCO2 39 mmHg (35-45) 02/19/18 11:17 ABG pO2 57 mmHg (85-104) L 02/19/18 11:17 ABG O2 Saturation 91 % (95-98) L 02/19/18 11:17 PT/INR, D-dimer PT 11.1 Seconds (9.4-12.1) 02/15/18 21:04 Consult Discharge Plan - Plan Referrals: Margarito Cordova MD [Primary Care Provider] - (Per Dr. Cordova's office the patient has to make his own follow up appointment Patient is going to [facility]) (3) Alcohol withdrawal Qualifiers: Complication of substance-induced condition: uncomplicated Qualified Code(s): F10.230 - Alcohol dependence with withdrawal, uncomplicated
[2018-02-26] MEDS: Mag Hydrox/Al Hydrox/Simeth 30 ML UDC PO PRN (09:10)
[2018-02-26] MEDS: BuPROPion XL (24 HR) 150 MG TABLET PO SCH (09:10)
[2018-02-26] MEDS: *HR* Buprenorphine HCl 8 MG TAB.SUBL SL SCH (09:10)
[2018-02-26] MEDS: Furosemide 40 MG/4 ML VIAL IVP SCH ×2 (09:11→17:49)
[2018-02-26] MEDS: predniSONE 10 MG TABLET PO SCH (09:11)
[2018-02-26] MEDS: Nicotine 21 MG PATCH.TD24 TD SCH (09:11)
[2018-02-26] MEDS: Nystatin POWDER 30 GM BOTTLE TP SCH ×2 (09:12→21:05)
[2018-02-26] MEDS: *HR* LORazepam 2 MG/ML VIAL IVP PRN (13:57)
[2018-02-26] MEDS: *HR* Buprenorphine HCl 2 MG SUBLINGUAL TABLET SL SCH (17:42)
[2018-02-27] MEDS: *HR* LORazepam 2 MG/ML VIAL IVP PRN (02:45)
[2018-02-27] MEDS: Ipratropium/Albuterol Neb 3 ML IH SCH ×6 (03:55→23:41)
[2018-02-27 04:58] LABS: BUN/Creatinine Ratio 23 (6-26); Basophils % 0.1 %; Blood Urea Nitrogen 26 mg/dL (8-23); Calcium 9.3 mg/dL (8.6-10.3); Carbon Dioxide 33 mEq/L (23-29); Chloride 93 mEq/L (98-107); Eosinophils # 0.1 K/mcL (0.0-0.6); Eosinophils % 0.5 %; Glucose 102 mg/dL (70-105); Hematocrit 30.2 % (37.5-50.1); Hemoglobin 10.6 g/dL (12.9-16.9); Immature Granulocytes % 0.8 % (0-4); Immature Platelets 3.1 % (1.1-6.1); Lymphocytes % 17.9 %; Mean Corpuscular HGB Conc 35.1 g/dL (31.6-35.5); Mean Platelet Volume 9.7 fL (9.4-12.4); Monocytes # 0.9 K/mcL (0.0-1.3); Monocytes % 7.7 %; Osmolality,Calculated 279 (280-300); Platelet Count 256 K/mcL (140-400); Potassium 3.9 mEq/L (3.5-5.1); Red Blood Count 2.65 M/mcL (4.19-5.50); Red Cell Distribution Width 14.5 % (11.5-14.5); Sodium 132 mEq/L (136-145); eGFR For Non-African Americans > 60 (> 60)
[2018-02-27 05:00] LABS: Phosphorous 4.9 mg/dL (2.7-4.5)
[2018-02-27 05:25] LABS: Anisocytosis 1+ (Not Present); Macrocytosis Present (Not Present); Platelet Estimate Normal (Normal)
[2018-02-27] MEDS: *HR* Heparin 5,000 UNIT/ML VIAL SQ SCH ×2 (06:00→17:43)
[2018-02-27] MEDS: Insulin LISPRO 300 UNITS/3 ML VIAL SQ SCH ×4 (08:43→20:36)
[2018-02-27] MEDS: Furosemide 40 MG/4 ML VIAL IVP SCH ×2 (09:17→17:29)
[2018-02-27] MEDS: BuPROPion XL (24 HR) 150 MG TABLET PO SCH (09:18)
[2018-02-27] MEDS: *HR* Buprenorphine HCl 8 MG TAB.SUBL SL SCH (09:18)
[2018-02-27] MEDS: predniSONE 10 MG TABLET PO SCH (09:18)
[2018-02-27] MEDS: Nicotine 21 MG PATCH.TD24 TD SCH (09:19)
[2018-02-27] MEDS: Nystatin POWDER 30 GM BOTTLE TP SCH ×2 (09:19→20:37)
--- NOTE | 2018-02-27 09:23 | Discharge Summary ---
Orders not resulted at time of discharge: Pending orders 02/28/18 04:00 Basic Metabolic Panel AM 0400 CBC [Complete Blood Count] [HEME] AM 0400 Magnesium AM 0400 Phosphorous AM 0400 Date of Encounter: 02/27/18 Time of Encounter: 09:20 - Discharge Diagnosis (1) Acute respiratory failure with hypoxia Priority: Primary Status: Acute Assessment and Plan: 62 year old male patient presented to the emergency room with 5 week history of swelling in his feet and feeling terrible. He also has a known history of alcoholism with his last drink about 3 or 4 hours prior to admission. He states he has had increased shortness of breath, productive cough, and "snotty nose." He is also not been eating normally the last few days. He states he is also interested in quitting his alcohol use. Patient states he drinks about a bottle of whiskey daily and has done so for many years. He has gone through withdrawal in the past, usually presents with tremors, sweating but denies hallucinations. He was assessed with acute hypoxic respiratory failure likely secondary to acute worsening of chronic diastolic cHF, COPD exacerbation and sleep apnea . He improved with BIPAP, nebs, steroids and antibiotics. He also improved greatly on lasix. Edema improved. PT consulted for strengthening and recommend discharge to rehab He also had severe alcohol withdrawal due to chronic alchol abuse and dependence that required a precedex drip. He was weaned off precedex drip to IV ativan and is presently only needing po ativan PRN. He is stable for discharge to SNF. 35minutes was spent discharging this patient (2) Acute on chronic diastolic (congestive) heart failure Priority: Primary Status: Acute (3) Alcohol withdrawal Priority: Primary Status: Acute Qualifiers: Complication of substance-induced condition: uncomplicated Qualified Code(s): F10.230 - Alcohol dependence with withdrawal, uncomplicated (4) COPD exacerbation Priority: Primary Status: Acute (5) BEN (acute kidney injury) Priority: Primary Status: Acute Hospital course: Mr. Berkowitz is a 62 year old male - Time Spent with Patient Total time spent providing and/or coordinating discharge services: - Discharge Medications Prescriptions: Furosemide [Lasix] 40 mg PO BID 30 Days #60 tablet LORazepam [Ativan] 1 mg PO TID PRN 7 Days #20 tablet PRN Reason: Anxiety Metoprolol [Lopressor] 12.5 mg PO BID 30 Days #60 tablet Nicotine Patch [Nicoderm] 21 mg TD DAILY 30 Days #30 patch.td24 Home Medications: Albuterol Sulfate [Proair Respiclick] 2 puff IH Q4H PRN 08/16/16 [History] Buprenorphine HCl/Naloxone HCl [Buprenorphin-Naloxon 8-2 mg Sl] 1 tab SL QAM 08/16/16 [History] Bupropion HCl [Wellbutrin Xl] 300 mg PO QAM 08/16/16 [History] Lisinopril [Zestril] 2.5 mg PO DAILY 08/16/16 [History] Loratadine [Allergy Relief] 10 mg PO DAILY 08/16/16 [History] Atorvastatin [Lipitor] 20 mg PO HS 02/16/18 [History] Buprenorphine HCl/Naloxone HCl [Buprenorphin-Naloxon 8-2 mg Sl] 0.25 tab SL QPM 02/16/18 [History] Furosemide [Lasix] 40 mg PO BID 30 Days #60 tablet 02/27/18 [Rx] LORazepam [Ativan] 1 mg PO TID PRN 7 Days #20 tablet 02/27/18 [Rx] Metoprolol [Lopressor] 12.5 mg PO BID 30 Days #60 tablet 02/27/18 [Rx] Nicotine Patch [Nicoderm] 21 mg TD DAILY 30 Days #30 patch.td24 02/27/18 [Rx] Allergies/Adverse Reactions: Allergy/AdvReac Type Severity Reaction Status Date / Time Penicillins Allergy Blister Verified 08/16/16 14:21 Sulfa (Sulfonamide Allergy See Verified 10/14/16 10:51 Antibiotics) Comments Date of admission: 02/17/18 13:46 Primary care physician: Margarito Cordova MD Consults: 02/16/18 10:39 Consult to Critical Care [CONS] Stat Consulting Provider: [facility] Reason for Consult: severe acidosis Call Completed: Yes 02/16/18 11:12 Consult to Nurse Navigator [CONS] Routine Comment: 02/21/18 09:09 Consult to Occupational Therapy [CONS] Routine Comment: Evaluate, develop and implement POC Reason for Consult: weakness Does patient have active BEDREST order?: No Is patient medically & hemodynamically stable?: Yes Patient assessed for mobility or mobilized this visit?: No Consult to Physical Therapy [CONS] Routine Comment: Evaluate, develop and implement POC Reason for Consult: weakness Does patient have active BEDREST order?: No Is patient medically & hemodynamically stable?: Yes Patient assessed for mobility or mobilized this visit?: No 02/22/18 11:45 Consult to Assistant Customer Service Manager [CONS] Routine Reason for SW Consult: inpatient rehab - Constitutional Vitals: Temp Pulse Resp BP Pulse Ox 98.5 F 102 16 96/64 93 02/27/18 07:32 02/27/18 07:32 02/27/18 08:07 02/27/18 07:32 02/27/18 08:07 General appearance: Present: cooperative, mild distress, A&O X 3, pleasant, answers questions appropriately Exam: General: In no distress. obese, on high flow nasal cannula Respiratory exam: Distant sound on auscultation. Occasional rales at bases Cardiovascular exam: RRR, +S1, +S2. no murmur, gallop, rubs. GI/Abdominal exam: Non-tender, Non-distended, normal bowel sounds, soft, no peritoneal signs. Extremities exam: 1+ pedal edema, warm, pulses palpable in b/l lower extremities. no calf tenderness Neurological exam: Moving all extremities. Following commands. Sedated but alert and responsive. Skin exam: chronic dermatitis changes on both feet. - Patient Status Disposition: Transfer SNF Condition: Good - Discharge Instructions Follow Up With: Margarito Cordova MD [Primary Care Provider] - (Patient will follow up with PCP at [facility])
[2018-02-27] MEDS: *HR* LORazepam 1 MG TABLET PO PRN ×2 (13:52→20:41)
[2018-02-27] MEDS: *HR* Buprenorphine HCl 2 MG SUBLINGUAL TABLET SL SCH (20:38)
[2018-02-28] MEDS: Ipratropium/Albuterol Neb 3 ML IH SCH ×5 (04:07→19:53)
[2018-02-28 05:12] LABS: Basophils % 0.2 %; Eosinophils % 0.4 %; Hematocrit 32.2 % (37.5-50.1); Hemoglobin 11.1 g/dL (12.9-16.9); Lymphocytes # 1.9 K/mcL (0.6-4.6); Lymphocytes % 16.9 %; Mean Corpuscular HGB Conc 34.5 g/dL (31.6-35.5); Mean Corpuscular Hemoglobin 39.6 pg (28.0-33.3); Mean Platelet Volume 9.7 fL (9.4-12.4); Monocytes # 0.8 K/mcL (0.0-1.3); Neutrophils # 8.3 K/mcL (1.6-8.9); Platelet Count 212 K/mcL (140-400); Red Cell Distribution Width 14.1 % (11.5-14.5); Segmented Neutrophils % 74.5 %
[2018-02-28 05:24] LABS: BUN/Creatinine Ratio 22 (6-26); Blood Urea Nitrogen 21 mg/dL (8-23); Calcium 9.1 mg/dL (8.6-10.3); Carbon Dioxide 31 mEq/L (23-29); Chloride 96 mEq/L (98-107); Glucose 105 mg/dL (70-105); Osmolality,Calculated 279 (280-300); Potassium 3.8 mEq/L (3.5-5.1); Sodium 133 mEq/L (136-145); eGFR For Non-African Americans > 60 (> 60)
[2018-02-28 05:32] LABS: Platelet Estimate Normal (Normal)
[2018-02-28 05:33] LABS: Macrocytosis Present (Not Present)
[2018-02-28] MEDS: *HR* Heparin 5,000 UNIT/ML VIAL SQ SCH ×2 (05:50→17:15)
[2018-02-28] MEDS: *HR* LORazepam 1 MG TABLET PO PRN ×2 (05:50→15:07)
[2018-02-28] MEDS: Insulin LISPRO 300 UNITS/3 ML VIAL SQ SCH ×4 (08:05→21:31)
[2018-02-28] MEDS: Mag Hydrox/Al Hydrox/Simeth 30 ML UDC PO PRN ×2 (09:13→21:39)
[2018-02-28] MEDS: Furosemide 40 MG/4 ML VIAL IVP SCH (09:13)
[2018-02-28] MEDS: Nicotine 21 MG PATCH.TD24 TD SCH (09:14)
[2018-02-28] MEDS: predniSONE 10 MG TABLET PO SCH (09:14)
[2018-02-28] MEDS: *HR* Buprenorphine HCl 8 MG TAB.SUBL SL SCH (09:14)
[2018-02-28] MEDS: Nystatin POWDER 30 GM BOTTLE TP SCH ×2 (09:14→21:32)
[2018-02-28] MEDS: BuPROPion XL (24 HR) 150 MG TABLET PO SCH (09:14)
--- NOTE | 2018-02-28 10:57 | Event Note ---
Date of Encounter: 02/28/18 Time of Encounter: 10:48 I have seen and evaluated the patient at bedside. he reports improvement in his breathing and the tremors but reports, mild intentional tremors and GERD like symptoms. Physical exam: Vitals: Reviewed. General: Alert and oriented x4. In mild distress due to mild intention tremors. No visual or auditory hallucinations. Skin: Normal color, no rash, no lesions. HEENT: EOM, pupils equal, round and reactive. Cardiovascular: RRR, Normal S1 & S2, no rubs, murmurs or gallops. Lungs: CTA b/l, no wheezes or crackles. Abdomen: Obese, Soft, non-tender, no rigidity. Extremities: chronic skin changes in the lower extr b/l. no edema. Neurological: Normal cognition and motor skills. Rest of the physical exam is non contributory Assessment and Plan: 1. Acute hypoxemic respiratory failure (resolved) 2. Alcohol withdrawal (resolved) 3. GERD 4. COPD exacerbation (resolved) 5. BEN (resolved) 6. VTE prophylaxis. Plan: Patient is being discharged. discharge summary has been dictated yesterday, refer to it for further details.
--- NOTE | 2018-02-28 10:59 | Physician Discharge Referral ---
ExtendedCare Referral Info Transfer To: ecf/snf - Diagnosis (1) BEN (acute kidney injury) Priority: Secondary Status: Acute (2) Acute respiratory failure with hypoxia Priority: Primary Status: Resolved (3) COPD exacerbation Priority: Primary Status: Resolved (4) Acute on chronic diastolic (congestive) heart failure Priority: Primary Status: Resolved (5) Alcohol abuse Priority: Secondary Status: Chronic Prognosis: Fair Aware of Diagnosis: Patient Aware of Prognosis: Patient - Transfer Medications Prescriptions: Furosemide [Lasix] 40 mg PO BID 30 Days #60 tablet LORazepam [Ativan] 1 mg PO TID PRN 7 Days #20 tablet PRN Reason: Anxiety Metoprolol [Lopressor] 12.5 mg PO BID 30 Days #60 tablet Nicotine Patch [Nicoderm] 21 mg TD DAILY 30 Days #30 patch.td24 PredniSONE [Deltasone] 20 mg PO DAILY 2 Days #2 tablet predniSONE [PredniSONE] 10 mg PO DAILY 2 Days #2 tablet Home Medications: Albuterol Sulfate [Proair Respiclick] 2 puff IH Q4H PRN 08/16/16 [History] Buprenorphine HCl/Naloxone HCl [Buprenorphin-Naloxon 8-2 mg Sl] 1 tab SL QAM 08/16/16 [History] Bupropion HCl [Wellbutrin Xl] 300 mg PO QAM 08/16/16 [History] Lisinopril [Zestril] 2.5 mg PO DAILY 08/16/16 [History] Loratadine [Allergy Relief] 10 mg PO DAILY 08/16/16 [History] Atorvastatin [Lipitor] 20 mg PO HS 02/16/18 [History] Buprenorphine HCl/Naloxone HCl [Buprenorphin-Naloxon 8-2 mg Sl] 0.25 tab SL QPM 02/16/18 [History] Furosemide [Lasix] 40 mg PO BID 30 Days #60 tablet 02/27/18 [Rx] LORazepam [Ativan] 1 mg PO TID PRN 7 Days #20 tablet 02/27/18 [Rx] Metoprolol [Lopressor] 12.5 mg PO BID 30 Days #60 tablet 02/27/18 [Rx] Nicotine Patch [Nicoderm] 21 mg TD DAILY 30 Days #30 patch.td24 02/27/18 [Rx] PredniSONE [Deltasone] 20 mg PO DAILY 2 Days #2 tablet 12/11/18 [Rx] predniSONE [PredniSONE] 10 mg PO DAILY 2 Days #2 tablet 02/28/18 [Rx] Allergies/Adverse Reactions: Allergy/AdvReac Type Severity Reaction Status Date / Time Penicillins Allergy Blister Verified 08/16/16 14:21 Sulfa (Sulfonamide Allergy See Verified 10/14/16 10:51 Antibiotics) Comments - Respiratory Orders Oxygen / L per min (2), None Smoking Cessation: Smoking cessation has been advised. For more information, call the [place] Tobacco Quit Line at 6-930-XTKJ-NOW. - Advance Directives Code Status: Full Code - Mobility Orders Ambulate - Rehabiliation Orders Rehab Potential: Good Rehab Orders: Evaluation for Physical Therapy, Evaluation for Occupational Therapy - Diet Orders Regular CERTIFICATION: I certify that the transfer of the above named patient to an Extended Care Facility is necessary for the continuing treatment of the diagnosis listed. The above information is true and accurate reflection of patient's current condition. Confidential - Redisclosure prohibited without a patient's written consent.
[2018-02-28] MEDS: *HR* Buprenorphine HCl 2 MG SUBLINGUAL TABLET SL SCH (17:19)
[2018-03-01] MEDS: Ipratropium/Albuterol Neb 3 ML IH SCH ×7 (00:10→23:07)
[2018-03-01] MEDS: *HR* Heparin 5,000 UNIT/ML VIAL SQ SCH ×2 (06:34→16:55)
[2018-03-01] MEDS: Insulin LISPRO 300 UNITS/3 ML VIAL SQ SCH ×4 (08:21→21:20)
[2018-03-01] MEDS: BuPROPion XL (24 HR) 150 MG TABLET PO SCH (08:31)
[2018-03-01] MEDS: *HR* LORazepam 1 MG TABLET PO PRN ×2 (08:31→21:41)
[2018-03-01] MEDS: *HR* Buprenorphine HCl 8 MG TAB.SUBL SL SCH (08:32)
[2018-03-01] MEDS: Nicotine 21 MG PATCH.TD24 TD SCH (08:32)
[2018-03-01] MEDS: Furosemide 40 MG/4 ML VIAL IVP SCH (08:32)
[2018-03-01] MEDS: Nystatin POWDER 30 GM BOTTLE TP SCH ×2 (08:35→21:36)
[2018-03-01] MEDS ORDERED: predniSONE 20 MG TABLET PO SCH (09:00)
--- NOTE | 2018-03-01 14:59 | Internal Med Progress Note ---
Hospitalist Progress Note - Encounter Date of Encounter: 03/01/18 Time of Encounter: 14:56 - Subjective Interval History: I have seen and evaluated the patient at bedside. Patient reports that he is feeling well. denies tremors or visual or auditory hallucinations. denies chest pain or abdominal pain. - Exam Vitals: Temp Pulse Resp BP Pulse Ox 99.2 F 77 18 111/68 95 03/01/18 10:53 03/01/18 10:53 03/01/18 11:07 03/01/18 10:53 03/01/18 11:07 Exam: Vitals: Reviewed. General: Alert and oriented x4. In no acute distress. Skin: Normal color, no rash, no lesions. HEENT: EOM, pupils equal, round and reactive. Cardiovascular: RRR, Normal S1 & S2, no rubs, murmurs or gallops. Lungs: CTA b/l, no wheezes or crackles. Abdomen: Obese, Soft, non-tender, no rigidity. Extremities: chronic skin changes in the lower extr b/l. no edema. Neurological: Normal cognition. CN II-XII intact. Rest of the physical exam is non contributory - Assessment and Plan (1) Acute respiratory failure with hypoxia Current Visit: Yes Status: Resolved Assessment and Plan: o2 litters of O2 by nasal cannula. wean patient off o2. (2) Alcohol abuse Current Visit: No Status: Chronic Assessment and Plan: no on acute withdrawal. will continue to monitor (3) Congestive heart failure Current Visit: Yes Status: Chronic Assessment and Plan: not on acute exacerbation. fluid restriction to 1.5 litters a day. continue furosemide 40mg/IV daily daily weight on a bb and lisinopril (4) COPD (chronic obstructive pulmonary disease) Current Visit: No Status: Chronic Assessment and Plan: no on acute exacerbation continue bronchodilators scheduled and PRN decrease prednisone to 10mg/PO daily, to wean him off steroids. incentive spirometry. (5) Morbid obesity with BMI of 45.0-49.9, adult Current Visit: No Status: Chronic DVT Prophylaxis: On heparin 5000 units subcutaneous twice a day. - Summary of Assessment and Plan Summary of Assessment and Plan: Patient clinically is stable to be discharged. Pending placement as patient is on Subutex. - Time Spent with Patient Total time spent is greater than 50% in coordination of care (as documented) at patient's floor/unit and/or counseling patient: Greater than 35 minutes (38) Plan of Care Discussed with: patient (his and the nurse.) Internal Medicine: Result - Labs CBC & Chem 7: 02/28/18 04:46 02/28/18 04:46 - ABG Interpretation ABG results: ABG ABG pH 7.49 pH Units (7.32-7.45) H 02/19/18 11:17 ABG pCO2 39 mmHg (35-45) 02/19/18 11:17 ABG pO2 57 mmHg (85-104) L 02/19/18 11:17 ABG O2 Saturation 91 % (95-98) L 02/19/18 11:17 PT/INR, D-dimer PT 11.1 Seconds (9.4-12.1) 02/15/18 21:04 Consult Discharge Plan - Plan Referrals: Art,Margarito Porter MD [Primary Care Provider] - (Patient will follow up with PCP at [facility]) Prescriptions: Furosemide [Lasix] 40 mg PO BID 30 Days #60 tablet LORazepam [Ativan] 1 mg PO TID PRN 7 Days #20 tablet PRN Reason: Anxiety Metoprolol [Lopressor] 12.5 mg PO BID 30 Days #60 tablet Nicotine Patch [Nicoderm] 21 mg TD DAILY 30 Days #30 patch.td24 PredniSONE [Deltasone] 20 mg PO DAILY 2 Days #2 tablet predniSONE [PredniSONE] 10 mg PO DAILY 2 Days #2 tablet (3) Congestive heart failure Qualifiers: Heart failure type: unspecified Heart failure chronicity: chronic Qualified Code(s): I50.9 - Heart failure, unspecified (4) COPD (chronic obstructive pulmonary disease) Qualifiers: COPD type: unspecified COPD Qualified Code(s): J44.9 - Chronic obstructive p ulmonary disease, unspecified
[2018-03-01] MEDS: *HR* Buprenorphine HCl 2 MG SUBLINGUAL TABLET SL SCH (16:55)
[2018-03-01] MEDS: Mag Hydrox/Al Hydrox/Simeth 30 ML UDC PO PRN (17:07)
[2018-03-02] MEDS: Ipratropium/Albuterol Neb 3 ML IH SCH ×4 (04:11→15:46)
[2018-03-02] MEDS: Insulin LISPRO 300 UNITS/3 ML VIAL SQ SCH ×2 (08:23→12:10)
[2018-03-02] MEDS: Nicotine 21 MG PATCH.TD24 TD SCH (08:26)
[2018-03-02] MEDS: *HR* Buprenorphine HCl 8 MG TAB.SUBL SL SCH (08:28)
[2018-03-02] MEDS: BuPROPion XL (24 HR) 150 MG TABLET PO SCH (08:28)
[2018-03-02] MEDS: *HR* LORazepam 1 MG TABLET PO PRN ×2 (08:28→16:26)
[2018-03-02] MEDS: Furosemide 40 MG/4 ML VIAL IVP SCH (08:29)
[2018-03-02] MEDS: *HR* Heparin 5,000 UNIT/ML VIAL SQ SCH (08:29)
[2018-03-02] MEDS ORDERED: predniSONE 10 MG TABLET PO SCH (09:00)
--- NOTE | 2018-03-02 14:35 | Event Note ---
Date of Encounter: 03/02/18 Time of Encounter: 14:35 I have seen and evaluated the patient. he reports feeling well. denies tremors, visual or auditory hallucinations. Physical exam: Vitals: Reviewed. General: Alert and oriented x4. In no acute distress. Skin: Normal color, no rash, no lesions. HEENT: EOM, pupils equal, round and reactive. Cardiovascular: RRR, Normal S1 & S2, no rubs, murmurs or gallops. Lungs: CTA b/l, no wheezes or crackles. Abdomen: Obese, Soft, non-tender, no rigidity. Extremities: chronic skin changes in the lower extr b/l. no edema. Neurological: Normal cognition and motor skills. Rest of the physical exam is non contributory Assessment and plan: Assessment and Plan: 1. Acute hypoxemic respiratory failure (resolved) 2. Alcohol withdrawal (resolved) 3. GERD 4. COPD exacerbation (resolved) 5. BEN (resolved) 6. HTN 7. VTE prophylaxis. 8. HFpEF Plan: Patient is discharged. Going home with home health Discharge summary dictated refer to it for more information.
--- NOTE | 2018-03-02 14:56 | Physician Discharge Referral ---
Home Health/Hosp Referral Info Transfer to: Home Health - Diagnosis (1) Acute respiratory failure with hypoxia Priority: Primary Status: Resolved (2) Alcohol abuse Priority: Secondary Status: Chronic (3) Congestive heart failure Priority: Secondary Status: Chronic (4) COPD (chronic obstructive pulmonary disease) Priority: Secondary Status: Chronic (5) Morbid obesity with BMI of 45.0-49.9, adult Priority: Secondary Status: Chronic - Respiratory Orders Oxygen / L per min (2) Smoking Cessation: Smoking cessation has been advised. For more information, call the [place] Tobacco Quit Line at 3-141-UVLT-NOW. - Diet/Nutrition Diet/Nutrition Orders: Regular - Activity Activity Orders: Ambulate - Services Needed Following services are medically necessary services: Nursing, Home Health Aide, Physical Therapy, Occupational Therapy - Transfer Medications Prescriptions: Furosemide [Lasix] 40 mg PO BID 30 Days #60 tablet LORazepam [Ativan] 1 mg PO TID PRN 7 Days #20 tablet PRN Reason: Anxiety Metoprolol [Lopressor] 12.5 mg PO BID 30 Days #60 tablet Nicotine Patch [Nicoderm] 21 mg TD DAILY 30 Days #30 patch.td24 Home Medications: Albuterol Sulfate [Proair Respiclick] 2 puff IH Q4H PRN 08/16/16 [History] Buprenorphine HCl/Naloxone HCl [Buprenorphin-Naloxon 8-2 mg Sl] 1 tab SL QAM 08/16/16 [History] Bupropion HCl [Wellbutrin Xl] 300 mg PO QAM 08/16/16 [History] Lisinopril [Zestril] 2.5 mg PO DAILY 08/16/16 [History] Loratadine [Allergy Relief] 10 mg PO DAILY 08/16/16 [History] Atorvastatin [Lipitor] 20 mg PO HS 02/16/18 [History] Buprenorphine HCl/Naloxone HCl [Buprenorphin-Naloxon 8-2 mg Sl] 0.25 tab SL QPM 02/16/18 [History] Furosemide [Lasix] 40 mg PO BID 30 Days #60 tablet 02/27/18 [Rx] LORazepam [Ativan] 1 mg PO TID PRN 7 Days #20 tablet 02/27/18 [Rx] Metoprolol [Lopressor] 12.5 mg PO BID 30 Days #60 tablet 02/27/18 [Rx] Nicotine Patch [Nicoderm] 21 mg TD DAILY 30 Days #30 patch.td24 02/27/18 [Rx] Allergies/Adverse Reactions: Allergy/AdvReac Type Severity Reaction Status Date / Time Penicillins Allergy Blister Verified 08/16/16 14:21 Sulfa (Sulfonamide Allergy See Verified 10/14/16 10:51 Antibiotics) Comments Certification: Further, I certify that my clinical findings support that this patient is homebound (i.e. absences from home require considerable and taxing effort and are for medical reasons or yarsanism services or infrequently or short duration when for other reasons) because: Homebound Reason: Patient requires assistance of a person or device to safely leave home Attestation: My signature below is to certify that this patient is under my care and that I, or nurse practitioner, or a physician's nutrition services assistant working with me, has a [id number] encounter with this patient.
[2018-03-02 15:59] VITALS: BP 130/82
== END 2018-03-02 17:07 | DRG 896 ==
LOC: 2ANU 20:23 → EMEROOARM 20:23 → SUATTDRO 23:21 → 2ANU 02-16 00:55 → ICNU 02-16 09:32 → SUATTDRO 02-17 13:46 → 2NENU 02-18 10:26 → 2NNU 02-19 09:22 → 2ANU 02-22 11:03
PROVIDERS: ADMIT Family Medicine; ATTEND Internal Medicine

== ENCOUNTER 2022-01-17 05:10 | Observation (INO) ==
[2022-01-17] MEDS ORDERED: Haloperidol Lactate 5 MG/ML VIAL IVP ONE (07:14)
[2022-01-17 08:04] LABS: Red Cell Distribution Width 12.8 % (11.5-14.5)
[2022-01-17 08:11] LABS: INR 1.1; Prothrombin Time 12.1 Seconds (9.4-12.1)
[2022-01-17 08:23] LABS: Amphetamine Screen,Urine Negative ng/mL (Cutoff=1000); Barbiturate Screen,Urine Negative ng/mL (Cutoff=200); Benzodiazepines Screen,Urine Negative ng/mL (Cutoff=200); Cannabinoid Screen,Urine Positive ng/mL (Cutoff = 50); Cocaine Screen,Urine Negative ng/mL (Cutoff= 300); Opiate Screen,Urine Negative ng/mL (Cutoff=300); Phencyclidine Screen,Urine Negative ng/mL (Cutoff=25)
[2022-01-17 08:27] LABS: Basophils % 0.4 %; Eosinophils # 0.1 K/mcL (0.0-0.6); Eosinophils % 2.1 %; Hematocrit 44.9 % (37.5-50.1); Hemoglobin 15.9 g/dL (12.9-16.9); Immature Granulocytes % 0.4 % (0-4); Lymphocytes # 1.6 K/mcL (0.6-4.6); Lymphocytes % 29.3 %; Mean Corpuscular HGB Conc 35.4 g/dL (31.6-35.5); Mean Corpuscular Hemoglobin 33.8 pg (28.0-33.3); Mean Corpuscular Volume 95.5 fL (83.0-100.0); Mean Platelet Volume 9.9 fL (9.4-12.4); Monocytes # 0.3 K/mcL (0.0-1.3); Monocytes % 5.9 %; Neutrophils # 3.3 K/mcL (1.6-8.9); Platelet Count 188 K/mcL (140-400); Segmented Neutrophils % 61.9 %; White Blood Count 5.3 K/mcL (4.3-11.1)
[2022-01-17 08:37] LABS: Ethanol 327 mg/dL (Less than 10); Troponin I < 0.03 ng/mL (< 0.04)
[2022-01-17 08:58] LABS: BUN/Creatinine Ratio 14 (6-26); Blood Urea Nitrogen 14 mg/dL (8-23); Calcium 8.7 mg/dL (8.6-10.3); Carbon Dioxide 24 mEq/L (23-29); Chloride 96 mEq/L (98-107); Glucose 101 mg/dL (70-105); Osmolality,Calculated 287 (280-300); Sodium 138 mEq/L (136-145)
[2022-01-17] MEDS ORDERED: *HR* Buprenorphine HCl 8 MG TAB.SUBL SL STA (09:13)
[2022-01-17 11:58] LABS: Acetaminophen < 10 mcg/mL (10-20); Salicylate < 2.5 mg/dL (15.0-30.0)
[2022-01-17] MEDS ORDERED: Nicotine 14 MG PATCH.TD24 TD STA (12:00)
[2022-01-17 12:52] LABS: Ethanol 208 mg/dL (Less than 10)
[2022-01-17] MEDS ORDERED: *HR* LORazepam 2 MG/ML VIAL IVP STA (14:11)
[2022-01-17 21:50] LABS: Ethanol < 10 mg/dL (Less than 10)
[2022-01-17] MEDS ORDERED: *HR* LORazepam 1 MG TABLET PO PRN (22:48)
[2022-01-17] MEDS ORDERED: Ondansetron 4 MG/2 ML VIAL IVP PRN (23:22)
[2022-01-17] MEDS ORDERED: Melatonin 3 MG TABLET PO PRN (23:22)
[2022-01-17] MEDS ORDERED: Acetaminophen 325 MG TABLET PO PRN (23:22)
[2022-01-17] MEDS ORDERED: Naloxone 0.4 MG/ML INJ IVP PRN (23:22)
[2022-01-17 23:57] LABS: Lipase 11 Units/L (11-82)
[2022-01-18] MEDS ORDERED: *HR* LORazepam 1 MG TABLET PO PRN ×2 (00:09)
[2022-01-18] MEDS: *HR* LORazepam 1 MG TABLET PO PRN ×2 (00:43→04:12)
[2022-01-18 00:49] LABS: Potassium 6.2 mEq/L (3.5-5.1)
[2022-01-18] MEDS: Folic Acid 1 MG TABLET PO SCH ×2 (02:56→10:04)
[2022-01-18] MEDS: Thiamine (B-1) 100 MG TABLET PO SCH ×2 (02:56→10:05)
[2022-01-18] MEDS: Vitamin B Complex/Vit C/Vit E 1 EACH TABLET PO SCH ×2 (02:56→11:21)
[2022-01-18 04:48] LABS: Basophils % 0.2 %; Eosinophils # 0.1 K/mcL (0.0-0.6); Eosinophils % 1.2 %; Hematocrit 41.1 % (37.5-50.1); Immature Granulocytes % 0.2 % (0-4); Lymphocytes # 0.8 K/mcL (0.6-4.6); Lymphocytes % 18.3 %; Mean Corpuscular HGB Conc 34.1 g/dL (31.6-35.5); Mean Corpuscular Hemoglobin 32.9 pg (28.0-33.3); Mean Corpuscular Volume 96.7 fL (83.0-100.0); Mean Platelet Volume 8.5 fL (9.4-12.4); Monocytes # 0.4 K/mcL (0.0-1.3); Monocytes % 9.3 %; Platelet Count 137 K/mcL (140-400); Red Blood Count 4.25 M/mcL (4.19-5.50); Red Cell Distribution Width 12.5 % (11.5-14.5); Segmented Neutrophils % 70.8 %; White Blood Count 4.2 K/mcL (4.3-11.1)
[2022-01-18 05:07] LABS: Calcium 8.3 mg/dL (8.6-10.3); Magnesium 1.9 mg/dL (1.6-2.6)
[2022-01-18] MEDS ORDERED: Buprenorphine Hcl/Naloxone Hcl 8-2MG SL SCH (09:00)
[2022-01-18] MEDS ORDERED: BuPROPion XL (24 HR) 150 MG TABLET PO SCH (09:00)
[2022-01-18] MEDS: Gabapentin 400 MG CAPSULE PO SCH ×2 (10:05→20:20)
[2022-01-18] MEDS: Furosemide 40 MG TABLET PO SCH ×2 (10:05→16:46)
[2022-01-18] MEDS ORDERED: Nicotine 21 MG PATCH.TD24 TD SCH (10:30)
[2022-01-18 14:18] VITALS: BP 137/62; PULSE 95; TEMP 98.2; O2SAT 92
[2022-01-19] MEDS ORDERED: *HR* Enoxaparin 40 MG/0.4 ML SYRINGE SQ SCH (06:00)
== END 2022-01-18 23:59 | disposition other institution (70) ==
LOC: EMEROOARM 05:10 → 2NENU 05:10
PROVIDERS: ADMIT Internal Medicine; ATTEND Internal Medicine